=== PATIENT | female | born 1970 | race Two or more races ===

== ENCOUNTER 2019-02-04 18:06 | Emergency (ER) | payer OTHER ==
[~2019-02-04] VITALS: Ht 162.6 cm; Wt 113.4 kg
[2019-02-04 19:38] LABS: Potassium 4.5 mmol/L (3.5-5.1)
[2019-02-04 19:40] LABS: INR 1.2 (0.9-1.15); Partial Thromboplastin Time 29.9 sec (23.78-33.04); Prothrombin Time 12.7 sec (9.27-12.13)
[2019-02-04 19:42] LABS: Albumin 2.5 g/dL (3.4-5.0); Calcium 8.5 mg/dL (8.5-10.1)
[2019-02-04 19:45] LABS: BUN/Creatinine Ratio 14.9
[2019-02-04] MEDS ORDERED: ALBUTEROL SULF 2.5 MG/0.5ML(0.5%) NEB SOLN NEB ONE (19:45)
[2019-02-04] MEDS ORDERED: IPRATROPIUM BROM 0.5 MG/2.5ML INH SOL NEB ONE (19:45)
[2019-02-04 19:48] LABS: Bilirubin, Total 0.2 mg/dL (0.2-1.0); Total Protein 7.1 g/dL (6.4-8.2)
[2019-02-04] MEDS ORDERED: ALBUTEROL SULF 2.5 MG/0.5ML(0.5%) NEB SOLN ONE (19:49)
[2019-02-04] MEDS ORDERED: IPRATROPIUM BROM 0.5 MG/2.5ML INH SOL ONE (19:49)
[2019-02-04 19:59] LABS: Hematocrit 32.8 % (36.0-46.0); Hemoglobin 10.6 g/dL (12.2-16.2); Mean Corpuscular Hgb Conc. 32.2 g/dL (32.0-36.0); Mean Corpuscular Volume 86.9 fL (80.0-100.0); Platelet Count (auto) 294 10^3/uL (140-450); Red Blood Cells 3.78 10^6/uL (4.0-5.20); Red Cell Distribution Width 15.5 % (11.8-14.3); White Blood Cell 15.1 10^3/uL (4.4-10.8)
[2019-02-04 20:06] LABS: Basophils % (manual) 0 (0.0-2.0); Blast Cells 0; Metamyelocytes % 0; Myelocytes % 0; Promyelocytes % 0; Reactive Lymphocytes 0
[2019-02-04 20:38] LABS: Band Neutrophils % (manual) 3; Eosinophils % (manual) 1 (0-7); Lymphocytes % (manual) 14 (10.0-50.0); Monocytes % (manual) 4 (0-12)
[2019-02-04] MEDS ORDERED: AZITHROMYCIN 500MG/ 250ML 250 ML IV ONE (21:15)
[2019-02-04] MEDS ORDERED: cefTRIAXone 1GM/50ML D5W 50 ML IV ONE (21:15)
[2019-02-05] MEDS ORDERED: InsuLIN REG 1unit/0.01ml Soln (100units/ml) IV ONE ×2 (04:00→07:00)
[2019-02-05 06:43] VITALS: BP 103/58
--- NOTE | 2019-02-05 06:45 | NUR ---
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 PLACED PT. ON 15LPM NRB , SP02 95%. NO RESP. DISTRESS NOTED. TRANSPORT TAKING OVER PT. CARE AT THIS TIME.
== END 2019-02-05 07:15 | disposition short-term general hospital (02) ==
LOC: ER 18:08
DX: J18.9 Pneumonia, unspecified organism (principal); T82.868A Thrombosis due to vascular prosthetic devices, implants and grafts, initial encounter; E87.70 Fluid overload, unspecified; I13.2 Hypertensive heart and chronic kidney disease with heart failure and with stage 5 chronic kidney disease, or end stage renal disease; E11.22 Type 2 diabetes mellitus with diabetic chronic kidney disease; N18.6 End stage renal disease; I50.9 Heart failure, unspecified; Z85.850 Personal history of malignant neoplasm of thyroid
CPT/HCPCS: 36415; 36600; 71045; 80053; 82805; 82962; 83605; 84702; 85007; 85027; 85610; 85730; 87040; 94640; 94660; 94761; 96365; 96366; 96367; 96375; 96376; 99285; J0456; J0696; J1815; J7611; J7644

== ENCOUNTER 2021-04-01 16:14 | Inpatient (IN) | payer MEDICARE, MEDICAID ==
[~2021-04-01] VITALS: Ht 157.5 cm; Wt 93.3 kg
[2021-04-01 16:57] LABS: Basophils # (auto) 0.1 10 ^3/uL (0-0.2); Eosinophils # (auto) 0.4 10 ^3/uL (0-0.8); Eosinophils % (auto) 4.8 % (0.0-7.0); Hematocrit 28.1 % (36.0-46.0); Hemoglobin 9.6 g/dL (12.2-16.2); Lymphocytes # (auto) 1.3 10 ^3/uL (0.4-5.4); Lymphocytes % (auto) 15.6 % (10.0-50.0); Mean Corpuscular Hemoglobin 31.2 pg (28.0-32.0); Mean Corpuscular Volume 91.8 fL (80.0-100.0); Monocytes # (auto) 0.4 10 ^3/uL (0-1.3); Monocytes % (auto) 4.7 % (0.0-12.0); Neutrophils # (auto) 6.2 10 ^3/uL (1.6-8.6); Neutrophils % (auto) 73.9 % (37.0-80.0); Nucleated Red Blood Cells % 0.1 %; Platelet Count (auto) 283 10^3/uL (140-450); Red Blood Cells 3.07 10^6/uL (4.0-5.20); Red Cell Distribution Width 17.3 % (11.8-14.3); White Blood Cell 8.4 10^3/uL (4.4-10.8)
[2021-04-01 17:12] LABS: INR 1.62 (0.9-1.15); Partial Thromboplastin Time 28.4 sec (23.0-31.2)
[2021-04-01] MEDS ORDERED: PIPERACILLIN-TAZOB 3.375GM 100 ML IV ONE (17:15)
[2021-04-01 17:19] LABS: Albumin 3.1 g/dL (3.4-5.0); Calcium 8.2 mg/dL (8.5-10.1); Potassium 5.1 mmol/L (3.5-5.1)
[2021-04-01 17:26] LABS: BUN/Creatinine Ratio 8.7; Bilirubin, Total 0.8 mg/dL (0.2-1.0)
[2021-04-01] MEDS ORDERED: FUROSEMIDE 40 MG/4 ML VIAL IV ONE (17:45)
[2021-04-01] MEDS ORDERED: InsuLIN REG 1unit/0.01ml Soln (100units/ml) IV ONE (17:45)
[2021-04-01] MEDS ORDERED: HEPARIN SODIUM (PORCINE) 5000 UNITS/ML 1ML VIAL IV ONE (18:00)
[2021-04-01] MEDS ORDERED: MORPHINE SULF INJ 2 MG/ML SYRINGE 1ML IV PRN (19:15)
[2021-04-01] MEDS ORDERED: ACETAMINOPHEN 325 MG TAB PO PRN (19:15)
[2021-04-01] MEDS ORDERED: NITROGLYCERIN 0.4 MG SL TAB SL PRN (19:15)
[2021-04-01 20:10] LABS: Urine Bacteria NONE SEEN /hpf (None Seen); Urine Blood TRACE /uL (Negative); Urine Specific Gravity 1.013 (1.001-1.035); Urine WBC <1 /hpf (0 - 5)
[2021-04-01] MEDS: PHYTONADIONE (VIT K)10 MG/ML 1ML VIAL SUBCUT ONE (20:24)
[2021-04-01] MEDS ORDERED: PIPERACILLIN-TAZOB 0.75 GM in D5W 5% 50 ML IV SCH (21:15)
[2021-04-01] MEDS ORDERED: WARFARIN SODIUM 5 MG TAB PO ONE (21:45)
[2021-04-01] MEDS ORDERED: PIPERACILLIN-TAZOB 3.375GM 100 ML IV SCH (22:00)
[2021-04-01] MEDS: PIPERACILLIN-TAZOB 2.25GM 50 ML IV SCH (22:15)
[2021-04-01] MEDS: ASCORBIC ACID 500 MG TAB PO SCH (22:16)
[2021-04-01] MEDS: FAMOTIDINE 20 MG TAB PO SCH (22:16)
[2021-04-01] MEDS: MORPHINE SULF INJ 2 MG/ML SYRINGE 1ML IV PRN (22:40)
[2021-04-02 02:37] VITALS: BP 158/63
[2021-04-02 05:00] VITALS: BP 141/57
[2021-04-02] MEDS ORDERED: SODIUM CHL 0.9% 1000 ML BAG XX ONE (07:30)
[2021-04-02 08:05] LABS: Basophils # (auto) 0.1 10 ^3/uL (0-0.2); Basophils % (auto) 0.7 % (0.0-2.0); Eosinophils # (auto) 0.4 10 ^3/uL (0-0.8); Eosinophils % (auto) 4.7 % (0.0-7.0); Hematocrit 27.5 % (36.0-46.0); Hemoglobin 9.2 g/dL (12.2-16.2); Lymphocytes # (auto) 1.2 10 ^3/uL (0.4-5.4); Lymphocytes % (auto) 14.5 % (10.0-50.0); Mean Corpuscular Hemoglobin 30.7 pg (28.0-32.0); Mean Corpuscular Hgb Conc. 33.6 g/dL (32.0-36.0); Mean Corpuscular Volume 91.2 fL (80.0-100.0); Monocytes # (auto) 0.4 10 ^3/uL (0-1.3); Monocytes % (auto) 5.5 % (0.0-12.0); Neutrophils % (auto) 74.6 % (37.0-80.0); Platelet Count (auto) 261 10^3/uL (140-450); Red Blood Cells 3.01 10^6/uL (4.0-5.20); Red Cell Distribution Width 17.1 % (11.8-14.3)
[2021-04-02 08:15] LABS: Albumin 2.7 g/dL (3.4-5.0); BUN/Creatinine Ratio 9.5
[2021-04-02] MEDS ORDERED: ANGIOMAX 250 MG VIAL IV ONE (08:15)
[2021-04-02] MEDS ORDERED: fentaNYL CITRATE 100 MCG/2 ML VL ONE (08:15)
[2021-04-02] MEDS ORDERED: SODIUM CHL 0.9% 0 ML ONE (08:16)
[2021-04-02] MEDS ORDERED: MIDAZOLAM HCL 1MG/1ML-2 ML VIAL ONE (08:16)
[2021-04-02 08:19] LABS: Bilirubin, Total 0.3 mg/dL (0.2-1.0); Total Protein 6.5 g/dL (6.4-8.2)
[2021-04-02] MEDS ORDERED: LIDOCAINE 2%HCL (LOCAL ANESTH.) INJ 20ML MDV ONE (08:22)
[2021-04-02] MEDS ORDERED: IODIXANOL 320MG/ML 100ML BTL IV ONE (08:22)
[2021-04-02 08:26] LABS: Potassium 5.6 mmol/L (3.5-5.1)
[2021-04-02 08:30] LABS: INR 1.75 (0.9-1.15)
[2021-04-02 08:37] VITALS: BP 119/67
[2021-04-02] MEDS ORDERED: PHYTONADIONE (VIT K)10 MG/ML 1ML VIAL SUBCUT ONE (09:00)
[2021-04-02] MEDS ORDERED: phytonadione 1 ML ONE (09:04)
[2021-04-02] MEDS: ASCORBIC ACID 500 MG TAB PO SCH ×2 (10:00→21:20)
[2021-04-02] MEDS: ZINC SULFATE 220mg CAP or TAB PO SCH (10:00)
[2021-04-02] MEDS: PIPERACILLIN-TAZOB 2.25GM 50 ML IV SCH ×2 (10:00→21:21)
[2021-04-02] MEDS: MULTIPLE VITAMIN TAB PO SCH (10:00)
[2021-04-02] MEDS: HYDROcodone-ACET 5/325MG TAB PO PRN ×2 (10:45→18:35)
[2021-04-02 12:31] LABS: INR 1.84 (0.9-1.15)
[2021-04-02 13:00] VITALS: BP 102/37
[2021-04-02] MEDS: MORPHINE SULF INJ 2 MG/ML SYRINGE 1ML IV PRN (14:28)
[2021-04-02] MEDS ORDERED: VANCOMYCIN PER PHARMACY 0 MG IV SCH (16:30)
[2021-04-02 17:00] VITALS: BP 138/64
[2021-04-02] MEDS ORDERED: DEXTROSE (50%) 50ML SYRG IV PRN (18:30)
[2021-04-02] MEDS ORDERED: VANCOMYCIN 1GM/250ML 250 ML IV ONE (20:00)
[2021-04-02] MEDS ORDERED: EPOETIN ALFA-EPBX 4,000 UNIT/ML VIAL SC ONE (21:00)
[2021-04-02] MEDS: InsuLIN REG 1unit/0.01ml Soln (100units/ml) SC SCH (21:28)
[2021-04-02] MEDS: ACCU-CHEK COMFORT CURVE STRIP VI SCH (21:29)
[2021-04-02 22:00] VITALS: BP 106/35
[2021-04-03] MEDS ORDERED: SEVE800T8 PO (02:45)
[2021-04-03] MEDS ORDERED: METO2.5T PO (02:45)
[2021-04-03] MEDS ORDERED: INSREG3 SC (02:45)
[2021-04-03] MEDS ORDERED: HYDR-4798 PO (02:45)
[2021-04-03] MEDS ORDERED: WARF6TAB21 PO (02:45)
[2021-04-03] MEDS ORDERED: ONDA-155 PO (02:45)
[2021-04-03] MEDS ORDERED: FURO1TAB32 PO (02:45)
[2021-04-03] MEDS ORDERED: GABA300C10 PO (02:45)
[2021-04-03] MEDS ORDERED: AMIT10TA6 PO (02:45)
[2021-04-03] MEDS ORDERED: CARV3.1240 PO (02:45)
[2021-04-03] MEDS ORDERED: ALBU108A5 IN (02:45)
[2021-04-03] MEDS: MORPHINE SULF INJ 2 MG/ML SYRINGE 1ML IV PRN ×2 (04:40→20:40)
[2021-04-03 05:00] VITALS: BP 137/41
[2021-04-03] MEDS: InsuLIN REG 1unit/0.01ml Soln (100units/ml) SC SCH ×4 (06:14→22:43)
[2021-04-03] MEDS: PIPERACILLIN-TAZOB 2.25GM 50 ML IV SCH ×3 (06:14→22:37)
[2021-04-03] MEDS: ACCU-CHEK COMFORT CURVE STRIP VI SCH ×4 (06:15→22:38)
[2021-04-03 08:14] LABS: Basophils # (auto) 0 10 ^3/uL (0-0.2); Basophils % (auto) 0.2 % (0.0-2.0); Eosinophils # (auto) 0.4 10 ^3/uL (0-0.8); Eosinophils % (auto) 5.6 % (0.0-7.0); Hematocrit 24.9 % (36.0-46.0); Hemoglobin 8.6 g/dL (12.2-16.2); Lymphocytes # (auto) 1.2 10 ^3/uL (0.4-5.4); Lymphocytes % (auto) 15.9 % (10.0-50.0); Mean Corpuscular Hemoglobin 31.3 pg (28.0-32.0); Mean Corpuscular Hgb Conc. 34.5 g/dL (32.0-36.0); Mean Corpuscular Volume 90.8 fL (80.0-100.0); Monocytes # (auto) 0.5 10 ^3/uL (0-1.3); Neutrophils # (auto) 5.3 10 ^3/uL (1.6-8.6); Neutrophils % (auto) 71.3 % (37.0-80.0); Nucleated Red Blood Cells % 0.1 %; Platelet Count (auto) 259 10^3/uL (140-450); Red Blood Cells 2.75 10^6/uL (4.0-5.20); Red Cell Distribution Width 17.1 % (11.8-14.3); White Blood Cell 7.4 10^3/uL (4.4-10.8)
[2021-04-03 08:29] LABS: INR 1.53 (0.9-1.15)
[2021-04-03 08:33] VITALS: BP 116/54
[2021-04-03 08:47] LABS: BUN/Creatinine Ratio 7.8; Calcium 8.2 mg/dL (8.5-10.1); Magnesium 2.6 mg/dL (1.6-2.6); Potassium 5.3 mmol/L (3.5-5.1)
[2021-04-03] MEDS: ASCORBIC ACID 500 MG TAB PO SCH ×2 (10:00→22:38)
[2021-04-03] MEDS: MULTIPLE VITAMIN TAB PO SCH (10:00)
[2021-04-03] MEDS: ZINC SULFATE 220mg CAP or TAB PO SCH (10:00)
[2021-04-03] MEDS ORDERED: SODIUM ZIRCONIUM CYCL 10 GM PAK PO ONE (10:15)
[2021-04-03] MEDS ORDERED: PHYTONADIONE (VIT K)10 MG/ML 1ML VIAL IV ONE (10:30)
[2021-04-03] MEDS ORDERED: LIDOCAINE 2%HCL (LOCAL ANESTH.) INJ 20ML MDV ONE (10:34)
[2021-04-03] MEDS ORDERED: IODIXANOL 320MG/ML 100ML BTL IV ONE (10:34)
[2021-04-03] MEDS ORDERED: phytonadione 5 MG in SODIUM CHL 0.9% 50 ML IV ONE (10:45)
[2021-04-03] MEDS ORDERED: SODIUM CHL 0.9% 0 ML ONE (12:03)
[2021-04-03] MEDS ORDERED: ANGIOMAX 250 MG VIAL IV ONE (12:03)
[2021-04-03] MEDS ORDERED: MIDAZOLAM HCL 1MG/1ML-2 ML VIAL ONE ×2 (12:03→13:38)
[2021-04-03] MEDS ORDERED: fentaNYL CITRATE 100 MCG/2 ML VL ONE ×2 (12:03→13:38)
[2021-04-03 12:35] VITALS: BP 123/51
[2021-04-03] MEDS ORDERED: diphenhdrAMINE HCL 50 MG/1 ML VL ONE (12:42)
[2021-04-03] MEDS ORDERED: HEPARIN 1,000 UNITS/ml 1ML VIAL ONE (12:46)
[2021-04-03] MEDS ORDERED: HEPARIN SODIUM (PORCINE) 5000 UNITS/ML 1ML VIAL ONE ×2 (12:46→13:08)
[2021-04-03] MEDS ORDERED: VERAPAMIL 2.5MG/ML INJ 2ML VIAL IV ONE (13:17)
[2021-04-03] MEDS ORDERED: NITROGLYCERIN 5MG/ML 10ML VIAL IV ONE (13:17)
[2021-04-03] MEDS ORDERED: PROPOFOL 10 MG/ML 20 ML IV ONE (13:38)
[2021-04-03] MEDS ORDERED: ONDANSETRON HCL 4 MG/2 ML VIAL ONE (13:38)
[2021-04-03] MEDS ORDERED: SODIUM CHLORIDE LOCK 10 ML ONE (13:38)
[2021-04-03] MEDS ORDERED: SODIUM CHL 0.9% 100 ML ONE (13:44)
[2021-04-03] MEDS ORDERED: ceFAZolin 1GM/50ML 100 ML IV ONE (14:20)
[2021-04-03] MEDS ORDERED: ceFAZolin 1GM VL ONE (15:03)
[2021-04-03] MEDS ORDERED: ONDANSETRON HCL 4 MG/2 ML VIAL IV PRN (17:30)
[2021-04-03] MEDS ORDERED: fentaNYL CITRATE 100 MCG/2 ML VL IV PRN (17:30)
[2021-04-03] MEDS ORDERED: ePHEDrine SULFATE 50 MG/ML AMP IV PRN (17:30)
[2021-04-03] MEDS ORDERED: LABETALOL HCL 5 MG/ML 4ML SYRINGE IV PRN (17:30)
[2021-04-03] MEDS ORDERED: MIDAZOLAM HCL 1MG/1ML-2 ML VIAL IV PRN (17:30)
[2021-04-03 22:00] VITALS: BP 119/40
[2021-04-03] MEDS: FAMOTIDINE 20 MG TAB PO SCH (22:38)
[2021-04-04] MEDS: HYDROcodone-ACET 5/325MG TAB PO PRN ×2 (04:01→09:44)
[2021-04-04 05:00] VITALS: BP 131/50
[2021-04-04] MEDS: PIPERACILLIN-TAZOB 2.25GM 50 ML IV SCH ×3 (05:42→21:52)
[2021-04-04] MEDS: ACCU-CHEK COMFORT CURVE STRIP VI SCH ×4 (06:22→22:07)
[2021-04-04] MEDS: InsuLIN REG 1unit/0.01ml Soln (100units/ml) SC SCH ×4 (06:22→22:00)
[2021-04-04 08:20] LABS: Calcium 8.5 mg/dL (8.5-10.1); Potassium 5.5 mmol/L (3.5-5.1)
[2021-04-04 08:22] LABS: BUN/Creatinine Ratio 8.1
[2021-04-04 08:41] VITALS: BP 106/38
[2021-04-04] MEDS: MULTIPLE VITAMIN TAB PO SCH (09:44)
[2021-04-04] MEDS: ZINC SULFATE 220mg CAP or TAB PO SCH (09:44)
[2021-04-04] MEDS: ASCORBIC ACID 500 MG TAB PO SCH ×2 (09:44→22:07)
[2021-04-04 10:37] LABS: INR 1.14 (0.9-1.15)
[2021-04-04 11:30] LABS: Hepatitis A Ab IgM Negative
[2021-04-04 11:31] LABS: Hepatitis B Core IgM Negative; Hepatitis C Antibody Negative (Negative)
[2021-04-04 11:32] LABS: Hepatitis B Surface Antigen Negative (Negative)
[2021-04-04 12:16] LABS: Basophils # (auto) 0.1 10 ^3/uL (0-0.2); Basophils % (auto) 1.2 % (0.0-2.0); Eosinophils # (auto) 0.4 10 ^3/uL (0-0.8); Eosinophils % (auto) 5.1 % (0.0-7.0); Hematocrit 25.4 % (36.0-46.0); Hemoglobin 8.6 g/dL (12.2-16.2); Lymphocytes # (auto) 1.1 10 ^3/uL (0.4-5.4); Lymphocytes % (auto) 14.8 % (10.0-50.0); Mean Corpuscular Hemoglobin 31.1 pg (28.0-32.0); Mean Corpuscular Hgb Conc. 33.9 g/dL (32.0-36.0); Mean Corpuscular Volume 91.8 fL (80.0-100.0); Monocytes # (auto) 0.5 10 ^3/uL (0-1.3); Monocytes % (auto) 6.9 % (0.0-12.0); Neutrophils # (auto) 5.2 10 ^3/uL (1.6-8.6); Nucleated Red Blood Cells % 0.2 %; Platelet Count (auto) 265 10^3/uL (140-450); Red Blood Cells 2.76 10^6/uL (4.0-5.20); Red Cell Distribution Width 17.3 % (11.8-14.3); White Blood Cell 7.2 10^3/uL (4.4-10.8)
[2021-04-04 13:13] VITALS: BP 141/36
[2021-04-04] MEDS: HYDROcodone-ACET 10/325MG TAB PO PRN ×2 (14:15→19:56)
[2021-04-04 16:28] VITALS: BP 94/42
[2021-04-04] MEDS ORDERED: VANCOMYCIN 1GM/250ML 250 ML IV ONE (18:00)
[2021-04-04] MEDS: FUROSEMIDE 20 MG TAB PO SCH (18:00)
[2021-04-04] MEDS: SEVELAMER 800 MG TAB PO SCH (18:04)
[2021-04-04 22:00] VITALS: BP 107/46
[2021-04-04] MEDS: CARVEDILOL 3.125 MG TAB PO SCH (22:07)
[2021-04-04] MEDS: AMITRIPTYLINE HCL 10 MG TAB PO SCH (22:07)
[2021-04-04] MEDS: GABAPENTIN 300 MG CAP PO SCH (22:07)
[2021-04-05 05:00] VITALS: BP 97/51
[2021-04-05] MEDS: PIPERACILLIN-TAZOB 2.25GM 50 ML IV SCH ×3 (06:00→22:59)
[2021-04-05] MEDS: FUROSEMIDE 20 MG TAB PO SCH ×2 (06:00→17:47)
[2021-04-05] MEDS: InsuLIN REG 1unit/0.01ml Soln (100units/ml) SC SCH ×4 (06:40→22:00)
[2021-04-05] MEDS: ACCU-CHEK COMFORT CURVE STRIP VI SCH ×4 (06:40→23:02)
[2021-04-05] MEDS: HYDROcodone-ACET 10/325MG TAB PO PRN ×4 (06:48→23:34)
[2021-04-05 06:49] VITALS: BP 113/54
[2021-04-05] MEDS ORDERED: SODIUM CHL 0.9% 1000 ML BAG XX ONE (07:00)
[2021-04-05 07:49] LABS: Basophils # (auto) 0.1 10 ^3/uL (0-0.2); Eosinophils # (auto) 0.4 10 ^3/uL (0-0.8); Eosinophils % (auto) 5.4 % (0.0-7.0); Hematocrit 27.3 % (36.0-46.0); Hemoglobin 9.1 g/dL (12.2-16.2); Lymphocytes # (auto) 1.2 10 ^3/uL (0.4-5.4); Lymphocytes % (auto) 14.8 % (10.0-50.0); Mean Corpuscular Hemoglobin 30.5 pg (28.0-32.0); Mean Corpuscular Hgb Conc. 33.3 g/dL (32.0-36.0); Mean Corpuscular Volume 91.5 fL (80.0-100.0); Monocytes # (auto) 0.5 10 ^3/uL (0-1.3); Monocytes % (auto) 6.3 % (0.0-12.0); Neutrophils # (auto) 5.7 10 ^3/uL (1.6-8.6); Neutrophils % (auto) 72.5 % (37.0-80.0); Nucleated Red Blood Cells % 0.1 %; Platelet Count (auto) 292 10^3/uL (140-450); Red Blood Cells 2.98 10^6/uL (4.0-5.20); Red Cell Distribution Width 17.1 % (11.8-14.3); White Blood Cell 7.8 10^3/uL (4.4-10.8)
[2021-04-05] MEDS: SEVELAMER 800 MG TAB PO SCH ×3 (08:00→17:51)
[2021-04-05 08:12] LABS: BUN/Creatinine Ratio 7.8; Calcium 8.5 mg/dL (8.5-10.1); Potassium 5.5 mmol/L (3.5-5.1)
[2021-04-05] MEDS: MULTIPLE VITAMIN TAB PO SCH (09:18)
[2021-04-05] MEDS: ZINC SULFATE 220mg CAP or TAB PO SCH (09:18)
[2021-04-05] MEDS: CARVEDILOL 3.125 MG TAB PO SCH ×2 (09:18→23:00)
[2021-04-05] MEDS: GABAPENTIN 300 MG CAP PO SCH (09:19)
[2021-04-05] MEDS: metOLazone 5 MG TAB PO SCH (09:19)
[2021-04-05] MEDS: ASCORBIC ACID 500 MG TAB PO SCH ×2 (09:19→23:02)
[2021-04-05 09:23] VITALS: BP 100/66
[2021-04-05 12:55] VITALS: BP 115/44
[2021-04-05] MEDS ORDERED: LIDOCAINE 1% (LOCAL ANESTH.) PF 5ml SDV ID ONE (14:15)
[2021-04-05 16:44] VITALS: BP 103/43
[2021-04-05] MEDS ORDERED: WARFARIN SODIUM 5 MG TAB PO ONE (17:00)
[2021-04-05] MEDS ORDERED: VANCOMYCIN 1GM/250ML 250 ML IV ONE (18:00)
[2021-04-05] MEDS ORDERED: EPOETIN ALFA-EPBX 10,000 UNIT/1ML VIAL SC ONE (21:00)
[2021-04-05 22:00] VITALS: BP 126/32
[2021-04-05] MEDS ORDERED: GABAPENTIN 300 MG CAP PO ONE (22:00)
[2021-04-05] MEDS: SODIUM CHLOR 0.9% PF (SALINE LOCK) 10ML VIAL/SYR IV SCH (22:59)
[2021-04-05] MEDS: AMITRIPTYLINE HCL 10 MG TAB PO SCH (23:00)
[2021-04-05] MEDS: ATORVASTATIN 20 MG TAB PO SCH (23:01)
[2021-04-05] MEDS: FAMOTIDINE 20 MG TAB PO SCH (23:02)
[2021-04-06] VITALS (7 sets, daily range): BP systolic 72–109; BP diastolic 34–77
[2021-04-06] MEDS: FUROSEMIDE 20 MG TAB PO SCH ×2 (05:44→18:00)
[2021-04-06] MEDS: PIPERACILLIN-TAZOB 2.25GM 50 ML IV SCH ×3 (05:53→21:59)
[2021-04-06 05:56] LABS: Potassium 4.5 mmol/L (3.5-5.1)
[2021-04-06 06:00] LABS: BUN/Creatinine Ratio 6.5
[2021-04-06 06:01] LABS: Basophils # (auto) 0.1 10 ^3/uL (0-0.2); Eosinophils # (auto) 0.3 10 ^3/uL (0-0.8); Lymphocytes # (auto) 1.1 10 ^3/uL (0.4-5.4); Lymphocytes % (auto) 17.5 % (10.0-50.0); Mean Corpuscular Hgb Conc. 33.9 g/dL (32.0-36.0); Monocytes # (auto) 0.6 10 ^3/uL (0-1.3); Neutrophils # (auto) 4.2 10 ^3/uL (1.6-8.6); Nucleated Red Blood Cells % 0.1 %; Platelet Count (auto) 229 10^3/uL (140-450); White Blood Cell 6.2 10^3/uL (4.4-10.8)
[2021-04-06 06:03] LABS: Basophils % (auto) 0.8 % (0.0-2.0); Eosinophils % (auto) 4.7 % (0.0-7.0); Hematocrit 22.8 % (36.0-46.0); Hemoglobin 7.7 g/dL (12.2-16.2); Mean Corpuscular Hemoglobin 30.9 pg (28.0-32.0); Mean Corpuscular Volume 91.2 fL (80.0-100.0); Monocytes % (auto) 9.2 % (0.0-12.0); Neutrophils % (auto) 67.8 % (37.0-80.0); Red Cell Distribution Width 17.4 % (11.8-14.3)
[2021-04-06 06:05] LABS: INR 1.05 (0.9-1.15); Partial Thromboplastin Time 25.4 sec (23.0-31.2)
[2021-04-06] MEDS: InsuLIN REG 1unit/0.01ml Soln (100units/ml) SC SCH ×4 (06:13→22:00)
[2021-04-06] MEDS: ACCU-CHEK COMFORT CURVE STRIP VI SCH ×4 (06:13→22:00)
[2021-04-06] MEDS: HYDROcodone-ACET 10/325MG TAB PO PRN ×3 (07:57→21:15)
[2021-04-06] MEDS: SEVELAMER 800 MG TAB PO SCH ×3 (07:59→18:02)
[2021-04-06] MEDS: metOLazone 5 MG TAB PO SCH (10:00)
[2021-04-06] MEDS ORDERED: ASPirin 81 mg TAB PO SCH (10:00)
[2021-04-06] MEDS: CARVEDILOL 3.125 MG TAB PO SCH ×2 (10:00→22:06)
[2021-04-06] MEDS: SODIUM CHLOR 0.9% PF (SALINE LOCK) 10ML VIAL/SYR IV SCH ×2 (10:28→22:05)
[2021-04-06] MEDS: GABAPENTIN 300 MG CAP PO SCH (10:32)
[2021-04-06] MEDS: MULTIPLE VITAMIN TAB PO SCH (10:33)
[2021-04-06] MEDS: ZINC SULFATE 220mg CAP or TAB PO SCH (10:33)
[2021-04-06] MEDS: ASCORBIC ACID 500 MG TAB PO SCH ×2 (10:33→22:06)
[2021-04-06] MEDS ORDERED: WARFARIN SODIUM 5 MG TAB PO ONE (17:00)
[2021-04-06] MEDS: ATORVASTATIN 20 MG TAB PO SCH (22:06)
[2021-04-06] MEDS: AMITRIPTYLINE HCL 10 MG TAB PO SCH (22:06)
[2021-04-07 05:00] VITALS: BP 102/28
[2021-04-07 05:52] LABS: Basophils # (auto) 0.1 10 ^3/uL (0-0.2); Eosinophils # (auto) 0.4 10 ^3/uL (0-0.8); Lymphocytes # (auto) 1.1 10 ^3/uL (0.4-5.4); Monocytes # (auto) 0.6 10 ^3/uL (0-1.3); Red Cell Distribution Width 17.3 % (11.8-14.3)
[2021-04-07 05:54] LABS: Basophils % (auto) 0.7 % (0.0-2.0); Eosinophils % (auto) 5.1 % (0.0-7.0); Hematocrit 22.5 % (36.0-46.0); Hemoglobin 7.9 g/dL (12.2-16.2); Lymphocytes % (auto) 13.8 % (10.0-50.0); Mean Corpuscular Hemoglobin 31.9 pg (28.0-32.0); Mean Corpuscular Hgb Conc. 34.9 g/dL (32.0-36.0); Mean Corpuscular Volume 91.5 fL (80.0-100.0); Neutrophils # (auto) 5.8 10 ^3/uL (1.6-8.6); Neutrophils % (auto) 72.4 % (37.0-80.0); Platelet Count (auto) 243 10^3/uL (140-450); Red Blood Cells 2.46 10^6/uL (4.0-5.20)
[2021-04-07 06:05] LABS: INR 1.08 (0.9-1.15)
[2021-04-07] MEDS: PIPERACILLIN-TAZOB 2.25GM 50 ML IV SCH (06:35)
[2021-04-07] MEDS: FUROSEMIDE 20 MG TAB PO SCH (06:36)
[2021-04-07] MEDS: ACCU-CHEK COMFORT CURVE STRIP VI SCH (06:36)
[2021-04-07] MEDS: InsuLIN REG 1unit/0.01ml Soln (100units/ml) SC SCH (06:36)
[2021-04-07 06:52] VITALS: BP 102/28
== END 2021-04-07 08:00 | disposition home health service (06) | DRG 270 ==
LOC: ER 16:14 → TELE 19:13 → TELE-WESTW 04-02 01:42
PROVIDERS: ADMIT Nurse Practitioner; ATTEND Nurse Practitioner
PROC: 04CQ3ZZ Extirpation of Matter from Left Anterior Tibial Artery, Percutaneous Approach (ICD-10-PCS; 2021-04-03)
PROC: 0Y6Y0Z0 Detachment at Left 5th Toe, Complete, Open Approach (ICD-10-PCS; 2021-04-03)
PROC: 047Q3ZZ Dilation of Left Anterior Tibial Artery, Percutaneous Approach (ICD-10-PCS; 2021-04-03)
PROC: 0SBN0ZX Excision of Left Metatarsal-Phalangeal Joint, Open Approach, Diagnostic (ICD-10-PCS; 2021-04-03)
PROC: B41G1ZZ Fluoroscopy of Left Lower Extremity Arteries using Low Osmolar Contrast (ICD-10-PCS; 2021-04-03)
PROC: B41F1ZZ Fluoroscopy of Right Lower Extremity Arteries using Low Osmolar Contrast (ICD-10-PCS; 2021-04-03)
PROC: 0Y6W0Z0 Detachment at Left 4th Toe, Complete, Open Approach (ICD-10-PCS; principal; 2021-04-03 16:11)
PROC: 06HY33Z Insertion of Infusion Device into Lower Vein, Percutaneous Approach (ICD-10-PCS; 2021-04-05)
DX: E11.52 Type 2 diabetes mellitus with diabetic peripheral angiopathy with gangrene (principal); A48.0 Gas gangrene; I50.43 Acute on chronic combined systolic (congestive) and diastolic (congestive) heart failure; N18.6 End stage renal disease; M86.10 Other acute osteomyelitis, unspecified site; I13.2 Hypertensive heart and chronic kidney disease with heart failure and with stage 5 chronic kidney disease, or end stage renal disease; J98.11 Atelectasis; D68.9 Coagulation defect, unspecified; E11.69 Type 2 diabetes mellitus with other specified complication; E66.9 Obesity, unspecified; Z20.822 Contact with and (suspected) exposure to COVID-19; E11.65 Type 2 diabetes mellitus with hyperglycemia; E11.42 Type 2 diabetes mellitus with diabetic polyneuropathy; E11.22 Type 2 diabetes mellitus with diabetic chronic kidney disease; E11.621 Type 2 diabetes mellitus with foot ulcer; D63.8 Anemia in other chronic diseases classified elsewhere; I73.9 Peripheral vascular disease, unspecified; E78.5 Hyperlipidemia, unspecified; L97.509 Non-pressure chronic ulcer of other part of unspecified foot with unspecified severity; J45.909 Unspecified asthma, uncomplicated; L08.9 Local infection of the skin and subcutaneous tissue, unspecified; R09.89 Other specified symptoms and signs involving the circulatory and respiratory systems; I25.2 Old myocardial infarction; Z79.01 Long term (current) use of anticoagulants; Z80.41 Family history of malignant neoplasm of ovary; Z80.6 Family history of leukemia; Z83.3 Family history of diabetes mellitus; Z85.850 Personal history of malignant neoplasm of thyroid; Z87.891 Personal history of nicotine dependence; Z99.2 Dependence on renal dialysis; Z88.8 Allergy status to other drugs, medicaments and biological substances; Z98.891 History of uterine scar from previous surgery; Z86.711 Personal history of pulmonary embolism; Z79.899 Other long term (current) drug therapy; Z68.37 Body mass index [BMI] 37.0-37.9, adult
CPT/HCPCS: 36415; 36569; 71045; 73700; 80048; 80053; 80074; 80202; 81001; 82040; 82565; 82962; 83605; 83735; 83880; 84484; 84702; 85025; 85610; 85730; 86850; 86900; 86901; 87040; 87081; 87426; 93005; 93306; 93926; 96365; 96375; 99152; 99153; C1724; C1769; G0378; J0690; J1642; J1815; J2250; J2405; J2543; J2704; J3430; J3490; Q9967

== ENCOUNTER 2021-05-07 10:43 | Inpatient (IN) | payer MEDICARE, MEDICAID ==
[~2021-05-07] VITALS: Ht 157.5 cm; Wt 97.0 kg
[~2021-05-07 10:43] MED LIST: ALBU108A5 IN; AMIT10TA6 PO; CARV3.1240 PO; FURO1TAB32 PO; GABA300C10 PO; HYDR-4798 PO; INSREG3 SC; METO2.5T PO; ONDA-155 PO; SEVE800T8 PO; WARF6TAB21 PO
[2021-05-07] MEDS ORDERED: CLINDAMYCIN 600MG IV 50 ML IV ONE (11:00)
[2021-05-07] MEDS ORDERED: SODIUM CHLORIDE 0.9% 500 ML IV ONE (11:00)
[2021-05-07] MEDS ORDERED: CATHFLO ACTIVASE (ALTEPLASE) 2 MG VIAL IV ONE (12:00)
[2021-05-07] MEDS ORDERED: STERILE WATER 10 ML ONE (12:07)
[2021-05-07 12:08] LABS: Eosinophils # (auto) 0.4 10 ^3/uL (0-0.8); Hemoglobin 7.5 g/dL (12.2-16.2); Monocytes # (auto) 0.6 10 ^3/uL (0-1.3)
[2021-05-07 12:10] LABS: Basophils # (auto) 0.1 10 ^3/uL (0-0.2); Basophils % (auto) 0.7 % (0.0-2.0); Eosinophils % (auto) 5.2 % (0.0-7.0); Hematocrit 22.9 % (36.0-46.0); Lymphocytes # (auto) 0.7 10 ^3/uL (0.4-5.4); Lymphocytes % (auto) 9.6 % (10.0-50.0); Mean Corpuscular Hemoglobin 29.3 pg (28.0-32.0); Mean Corpuscular Hgb Conc. 32.8 g/dL (32.0-36.0); Mean Corpuscular Volume 89.3 fL (80.0-100.0); Monocytes % (auto) 7.2 % (0.0-12.0); Neutrophils % (auto) 77.3 % (37.0-80.0); Red Blood Cells 2.56 10^6/uL (4.0-5.20); Red Cell Distribution Width 16.5 % (11.8-14.3); White Blood Cell 7.7 10^3/uL (4.4-10.8)
[2021-05-07 12:11] LABS: INR 1.48 (0.9-1.15); Partial Thromboplastin Time 32.2 sec (23.0-31.2)
[2021-05-07 12:27] LABS: Potassium 4.5 mmol/L (3.5-5.1)
[2021-05-07] MEDS ORDERED: NITROGLYCERIN 0.4 MG SL TAB SL PRN (12:30)
[2021-05-07] MEDS ORDERED: MORPHINE SULF INJ 2 MG/ML SYRINGE 1ML IV PRN (12:30)
[2021-05-07] MEDS ORDERED: DEXTROSE (50%) 50ML SYRG IV PRN (12:30)
[2021-05-07 12:33] LABS: Albumin 2.2 g/dL (3.4-5.0); BUN/Creatinine Ratio 8.5; Bilirubin, Total 0.3 mg/dL (0.2-1.0); Calcium 8.3 mg/dL (8.5-10.1); Total Protein 6.6 g/dL (6.4-8.2)
[2021-05-07] MEDS ORDERED: ONDANSETRON HCL 4 MG/2 ML VIAL ONE (13:18)
[2021-05-07] MEDS: MORPHINE SULF INJ 2 MG/ML SYRINGE 1ML IV PRN ×2 (13:27→23:13)
[2021-05-07] MEDS ORDERED: AMPICILLIN & SULBACTAM SODIUM 3 GM in SODIUM CHL 0.9% 100 ML IV SCH (14:00)
[2021-05-07] MEDS ORDERED: ZOLPIDEM TARTRATE 5 MG TAB PO PRN (14:00)
[2021-05-07] MEDS: HYDROcodone-ACET 10/325MG TAB PO PRN ×2 (15:27→21:30)
[2021-05-07 16:50] VITALS: BP 108/52
[2021-05-07] MEDS: InsuLIN REG 1unit/0.01ml Soln (100units/ml) SC SCH ×2 (17:00→23:30)
[2021-05-07] MEDS: ACCU-CHEK COMFORT CURVE STRIP VI SCH ×2 (17:39→22:42)
[2021-05-07] MEDS: FUROSEMIDE 40 MG TAB PO SCH (18:00)
[2021-05-07] MEDS: SEVELAMER 800 MG TAB PO SCH (18:24)
[2021-05-07 20:00] VITALS: BP 124/29
[2021-05-07] MEDS: ASCORBIC ACID 500 MG TAB PO SCH (21:30)
[2021-05-07] MEDS: LINEZOLID 600MG/300ML 300 ML IV SCH (21:30)
[2021-05-07] MEDS: GABAPENTIN 300 MG CAP PO SCH (21:31)
[2021-05-07] MEDS: CARVEDILOL 3.125 MG TAB PO SCH ×2 (21:33→22:00)
[2021-05-07 22:25] VITALS: BP 124/29
[2021-05-07] MEDS: PIPERACILLIN-TAZOB 2.25GM 50 ML IV SCH (22:41)
[2021-05-08 05:08] VITALS: BP 124/47
[2021-05-08] MEDS: PIPERACILLIN-TAZOB 2.25GM 50 ML IV SCH ×3 (05:13→22:16)
[2021-05-08 05:55] LABS: Albumin 2.2 g/dL (3.4-5.0); Calcium 7.9 mg/dL (8.5-10.1); Potassium 4.7 mmol/L (3.5-5.1)
[2021-05-08 05:57] LABS: Eosinophils # (auto) 0.5 10 ^3/uL (0-0.8); Hemoglobin 7.1 g/dL (12.2-16.2); Lymphocytes # (auto) 0.9 10 ^3/uL (0.4-5.4); Monocytes # (auto) 0.5 10 ^3/uL (0-1.3); Neutrophils # (auto) 4.6 10 ^3/uL (1.6-8.6)
[2021-05-08 06:00] LABS: BUN/Creatinine Ratio 9.4; Basophils # (auto) 0 10 ^3/uL (0-0.2); Basophils % (auto) 0.7 % (0.0-2.0); Bilirubin, Total 0.3 mg/dL (0.2-1.0); Eosinophils % (auto) 7.5 % (0.0-7.0); Hematocrit 21.6 % (36.0-46.0); Lymphocytes % (auto) 13.9 % (10.0-50.0); Mean Corpuscular Hemoglobin 29.5 pg (28.0-32.0); Mean Corpuscular Hgb Conc. 32.7 g/dL (32.0-36.0); Monocytes % (auto) 7.9 % (0.0-12.0); Red Blood Cells 2.39 10^6/uL (4.0-5.20); Red Cell Distribution Width 16.3 % (11.8-14.3); Total Protein 6.2 g/dL (6.4-8.2); White Blood Cell 6.6 10^3/uL (4.4-10.8)
[2021-05-08] MEDS: FUROSEMIDE 40 MG TAB PO SCH ×2 (06:00→17:33)
[2021-05-08] MEDS: InsuLIN REG 1unit/0.01ml Soln (100units/ml) SC SCH ×4 (06:32→22:00)
[2021-05-08] MEDS: ACCU-CHEK COMFORT CURVE STRIP VI SCH ×4 (06:33→22:16)
[2021-05-08] MEDS ORDERED: LIDOCAINE 1% HCL (LOCAL ANESTH.) INJ 20ML MDV ONE (07:39)
[2021-05-08] MEDS ORDERED: BUPIVACAINE 0.5% P/F INJ 10 ML VIAL ONE (07:40)
[2021-05-08] MEDS ORDERED: DOXAPRAM HCL 20 MG/ML 20ML VIAL INJ IV ONE (07:40)
[2021-05-08 08:00] VITALS: BP 108/41
[2021-05-08] MEDS ORDERED: ONDANSETRON HCL 4 MG/2 ML VIAL ONE (08:00)
[2021-05-08] MEDS ORDERED: MIDAZOLAM HCL 2MG/2ML 2ml VIAL (1mg/ml) ONE ×2 (08:00→09:08)
[2021-05-08] MEDS: SEVELAMER 800 MG TAB PO SCH ×3 (08:00→17:34)
[2021-05-08] MEDS: LINEZOLID 600MG/300ML 300 ML IV SCH ×2 (08:00→19:47)
[2021-05-08] MEDS ORDERED: fentaNYL CITRATE 100 MCG/2 ML VL ONE (08:00)
[2021-05-08] MEDS ORDERED: PROPOFOL 10 MG/ML 20 ML IV ONE (08:00)
[2021-05-08] MEDS ORDERED: SODIUM CHLORIDE LOCK 10 ML ONE (08:00)
[2021-05-08] MEDS ORDERED: ceFAZolin 1GM VL ONE (08:23)
[2021-05-08] MEDS ORDERED: HYDROmorphone HCL 2 MG/ML VL IV PRN (08:30)
[2021-05-08] MEDS ORDERED: ACCU-CHEK COMFORT CURVE STRIP VI ONE (08:30)
[2021-05-08] MEDS ORDERED: METOCLOPRAMIDE HCL 5MG/ml INJ 2ml VIAL IV PRN (08:30)
[2021-05-08 08:34] LABS: INR 1.4 (0.9-1.15)
[2021-05-08] MEDS ORDERED: ceFAZolin 1GM/50ML 100 ML IV ONE (09:05)
[2021-05-08] MEDS: ASCORBIC ACID 500 MG TAB PO SCH ×2 (10:00→21:31)
[2021-05-08] MEDS: GABAPENTIN 300 MG CAP PO SCH ×2 (10:00→21:31)
[2021-05-08] MEDS: metOLazone 5 MG TAB PO SCH (10:00)
[2021-05-08] MEDS: ZINC SULFATE 220mg CAP or TAB PO SCH (10:00)
[2021-05-08] MEDS: CARVEDILOL 3.125 MG TAB PO SCH ×2 (10:00→21:30)
[2021-05-08] MEDS: MULTIPLE VITAMIN TAB PO SCH (12:10)
[2021-05-08] MEDS ORDERED: SODIUM CHL 0.9% 1000 ML BAG XX ONE (12:30)
[2021-05-08] MEDS: MORPHINE SULF INJ 2 MG/ML SYRINGE 1ML IV PRN (12:55)
[2021-05-08 13:00] VITALS: BP 108/41
[2021-05-08] MEDS ORDERED: HYDROmorphone HCL 2 MG/ML VL IV ONE (13:45)
[2021-05-08] MEDS ORDERED: MORPHINE SULFATE 4 MG/ML SYR/VIAL IV PRN (14:00)
[2021-05-08] MEDS ORDERED: ASCO500T11 PO (15:15)
[2021-05-08] MEDS ORDERED: CHOL20007 PO (15:15)
[2021-05-08] MEDS: HYDROcodone-ACET 10/325MG TAB PO PRN ×2 (15:16→21:43)
[2021-05-08 16:37] VITALS: BP 100/45
[2021-05-08] MEDS: ACETAMINOPHEN 325 MG TAB PO PRN (17:34)
[2021-05-08] MEDS: HYDROmorphone HCL 2 MG/ML VL IV PRN (19:48)
[2021-05-08 20:00] VITALS: BP 97/54
[2021-05-08] MEDS ORDERED: EPOETIN ALFA-EPBX 4,000 UNIT/ML VIAL SC ONE (21:00)
[2021-05-08 22:11] VITALS: BP 97/54
[2021-05-09] MEDS: HYDROcodone-ACET 10/325MG TAB PO PRN ×4 (02:00→20:11)
[2021-05-09] MEDS: HYDROmorphone HCL 2 MG/ML VL IV PRN ×4 (03:38→22:49)
[2021-05-09 04:56] VITALS: BP 96/50
[2021-05-09] MEDS: FUROSEMIDE 40 MG TAB PO SCH ×2 (06:00→16:54)
[2021-05-09] MEDS: ACCU-CHEK COMFORT CURVE STRIP VI SCH ×4 (06:01→22:26)
[2021-05-09] MEDS: PIPERACILLIN-TAZOB 2.25GM 50 ML IV SCH ×3 (06:01→22:28)
[2021-05-09] MEDS: InsuLIN REG 1unit/0.01ml Soln (100units/ml) SC SCH ×4 (06:07→22:00)
[2021-05-09] MEDS: SEVELAMER 800 MG TAB PO SCH ×3 (07:55→16:53)
[2021-05-09] MEDS: LINEZOLID 600MG/300ML 300 ML IV SCH ×2 (08:00→20:01)
[2021-05-09 09:16] VITALS: BP 113/35
[2021-05-09] MEDS: CARVEDILOL 3.125 MG TAB PO SCH ×2 (10:00→22:00)
[2021-05-09] MEDS: metOLazone 5 MG TAB PO SCH (10:00)
[2021-05-09] MEDS: ZINC SULFATE 220mg CAP or TAB PO SCH (10:20)
[2021-05-09] MEDS: MULTIPLE VITAMIN TAB PO SCH (10:21)
[2021-05-09] MEDS: ASCORBIC ACID 500 MG TAB PO SCH ×2 (10:21→22:27)
[2021-05-09] MEDS: GABAPENTIN 300 MG CAP PO SCH ×2 (10:21→22:27)
[2021-05-09 13:00] VITALS: BP 123/39
[2021-05-09 17:14] VITALS: BP 116/65
[2021-05-09 22:00] VITALS: BP 84/45
[2021-05-09] MEDS: ACETAMINOPHEN 325 MG TAB PO PRN (22:15)
[2021-05-10] MEDS: PIPERACILLIN-TAZOB 2.25GM 50 ML IV SCH ×3 (00:47→14:12)
[2021-05-10 05:00] VITALS: BP 133/53
[2021-05-10 05:23] LABS: Basophils # (auto) 0.1 10 ^3/uL (0-0.2); Eosinophils # (auto) 0.4 10 ^3/uL (0-0.8); Lymphocytes # (auto) 1.1 10 ^3/uL (0.4-5.4); Monocytes # (auto) 0.7 10 ^3/uL (0-1.3)
[2021-05-10 05:27] LABS: Basophils % (auto) 1.1 % (0.0-2.0); Eosinophils % (auto) 6.3 % (0.0-7.0); Hematocrit 21.3 % (36.0-46.0); Hemoglobin 7.3 g/dL (12.2-16.2); Lymphocytes % (auto) 15.8 % (10.0-50.0); Mean Corpuscular Hemoglobin 30.7 pg (28.0-32.0); Mean Corpuscular Hgb Conc. 34.4 g/dL (32.0-36.0); Monocytes % (auto) 9.5 % (0.0-12.0); Neutrophils # (auto) 4.8 10 ^3/uL (1.6-8.6); Neutrophils % (auto) 67.3 % (37.0-80.0); Red Blood Cells 2.39 10^6/uL (4.0-5.20); Red Cell Distribution Width 16.1 % (11.8-14.3); White Blood Cell 7.1 10^3/uL (4.4-10.8)
[2021-05-10 05:44] LABS: Calcium 8.4 mg/dL (8.5-10.1); Potassium 4.8 mmol/L (3.5-5.1)
[2021-05-10 05:47] LABS: BUN/Creatinine Ratio 7.1
[2021-05-10] MEDS: FUROSEMIDE 40 MG TAB PO SCH ×2 (06:17→18:00)
[2021-05-10] MEDS: ACCU-CHEK COMFORT CURVE STRIP VI SCH ×4 (06:17→21:49)
[2021-05-10] MEDS: InsuLIN REG 1unit/0.01ml Soln (100units/ml) SC SCH ×4 (06:17→22:00)
[2021-05-10] MEDS: SEVELAMER 800 MG TAB PO SCH ×3 (08:00→18:00)
[2021-05-10] MEDS: LINEZOLID 600MG/300ML 300 ML IV SCH ×2 (08:00→21:47)
[2021-05-10 09:00] VITALS: BP 112/38
[2021-05-10] MEDS: HYDROmorphone HCL 2 MG/ML VL IV PRN (09:40)
[2021-05-10] MEDS: ZINC SULFATE 220mg CAP or TAB PO SCH (09:58)
[2021-05-10] MEDS: MULTIPLE VITAMIN TAB PO SCH (09:59)
[2021-05-10] MEDS: GABAPENTIN 300 MG CAP PO SCH ×2 (09:59→21:48)
[2021-05-10] MEDS: CARVEDILOL 3.125 MG TAB PO SCH ×2 (09:59→21:48)
[2021-05-10] MEDS: metOLazone 5 MG TAB PO SCH (10:00)
[2021-05-10] MEDS: ASCORBIC ACID 500 MG TAB PO SCH ×2 (10:00→21:48)
[2021-05-10] MEDS: ONDANSETRON HCL 4 MG/2 ML VIAL IV PRN (12:28)
[2021-05-10 12:34] VITALS: BP 128/42
[2021-05-10 16:16] VITALS: BP 120/54
[2021-05-10 21:48] VITALS: BP 120/32
[2021-05-11] MEDS: HYDROcodone-ACET 10/325MG TAB PO PRN ×4 (00:34→20:27)
[2021-05-11] MEDS: PIPERACILLIN-TAZOB 2.25GM 50 ML IV SCH ×5 (01:32→22:31)
[2021-05-11] MEDS: HYDROmorphone HCL 2 MG/ML VL IV PRN ×3 (04:37→22:34)
[2021-05-11 05:00] VITALS: BP 104/47
[2021-05-11] MEDS: FUROSEMIDE 40 MG TAB PO SCH ×2 (05:58→17:48)
[2021-05-11] MEDS: ACCU-CHEK COMFORT CURVE STRIP VI SCH ×4 (06:58→22:33)
[2021-05-11] MEDS: InsuLIN REG 1unit/0.01ml Soln (100units/ml) SC SCH ×4 (06:59→22:33)
[2021-05-11] MEDS: LINEZOLID 600MG/300ML 300 ML IV SCH ×2 (08:00→20:08)
[2021-05-11] MEDS: SEVELAMER 800 MG TAB PO SCH ×3 (08:00→17:48)
[2021-05-11] MEDS: LOPERAMIDE HCL 2 MG CAP PO PRN ×3 (08:15→20:27)
[2021-05-11 09:00] VITALS: BP 122/50
[2021-05-11] MEDS: ZINC SULFATE 220mg CAP or TAB PO SCH (09:30)
[2021-05-11] MEDS: GABAPENTIN 300 MG CAP PO SCH ×2 (09:31→22:32)
[2021-05-11] MEDS: ASCORBIC ACID 500 MG TAB PO SCH ×2 (09:31→22:32)
[2021-05-11] MEDS: MULTIPLE VITAMIN TAB PO SCH (09:31)
[2021-05-11] MEDS: metOLazone 5 MG TAB PO SCH (09:31)
[2021-05-11] MEDS: CARVEDILOL 3.125 MG TAB PO SCH ×3 (09:31→22:31)
[2021-05-11 13:00] VITALS: BP 121/56
[2021-05-11 17:00] VITALS: BP 101/40
[2021-05-11] MEDS: ONDANSETRON HCL 4 MG/2 ML VIAL IV PRN (18:04)
[2021-05-11 22:00] VITALS: BP 117/36
[2021-05-12 05:00] VITALS: BP 108/52
[2021-05-12] MEDS: PIPERACILLIN-TAZOB 2.25GM 50 ML IV SCH ×3 (05:33→22:45)
[2021-05-12] MEDS: FUROSEMIDE 40 MG TAB PO SCH ×2 (06:00→18:00)
[2021-05-12] MEDS: ACCU-CHEK COMFORT CURVE STRIP VI SCH ×4 (06:20→21:43)
[2021-05-12] MEDS: InsuLIN REG 1unit/0.01ml Soln (100units/ml) SC SCH ×4 (06:20→21:56)
[2021-05-12] MEDS: HYDROmorphone HCL 2 MG/ML VL IV PRN ×3 (07:35→20:11)
[2021-05-12] MEDS: SEVELAMER 800 MG TAB PO SCH ×3 (08:00→18:00)
[2021-05-12] MEDS: LINEZOLID 600MG/300ML 300 ML IV SCH ×2 (08:00→20:10)
[2021-05-12] MEDS: LOPERAMIDE HCL 2 MG CAP PO PRN ×3 (08:30→21:45)
[2021-05-12 09:00] VITALS: BP 117/58
[2021-05-12] MEDS: ZINC SULFATE 220mg CAP or TAB PO SCH (10:00)
[2021-05-12] MEDS: GABAPENTIN 300 MG CAP PO SCH ×2 (10:00→21:43)
[2021-05-12] MEDS: CARVEDILOL 3.125 MG TAB PO SCH ×3 (10:00→21:58)
[2021-05-12] MEDS: metOLazone 5 MG TAB PO SCH (10:00)
[2021-05-12] MEDS: HYDROcodone-ACET 10/325MG TAB PO PRN ×3 (10:00→21:45)
[2021-05-12] MEDS: MULTIPLE VITAMIN TAB PO SCH (10:00)
[2021-05-12] MEDS: ASCORBIC ACID 500 MG TAB PO SCH ×2 (10:00→21:43)
[2021-05-12 13:00] VITALS: BP 120/49
[2021-05-12 16:52] VITALS: BP 116/55
[2021-05-12 22:00] VITALS: BP 137/66
[2021-05-13] VITALS (7 sets, daily range): BP systolic 97–143; BP diastolic 43–64
[2021-05-13] MEDS: HYDROmorphone HCL 2 MG/ML VL IV PRN ×3 (02:23→14:45)
[2021-05-13] MEDS: PIPERACILLIN-TAZOB 2.25GM 50 ML IV SCH ×3 (05:51→23:20)
[2021-05-13] MEDS: FUROSEMIDE 40 MG TAB PO SCH ×2 (05:51→17:50)
[2021-05-13] MEDS: LOPERAMIDE HCL 2 MG CAP PO PRN ×2 (05:52→10:49)
[2021-05-13] MEDS: ACCU-CHEK COMFORT CURVE STRIP VI SCH ×4 (05:53→22:30)
[2021-05-13] MEDS: HYDROcodone-ACET 10/325MG TAB PO PRN ×3 (05:53→21:32)
[2021-05-13] MEDS ORDERED: ALBUTEROL SULF 2.5 MG/0.5ML(0.5%) NEB SOLN NEB PRN (06:30)
[2021-05-13] MEDS ORDERED: SODIUM CHL 0.9% 1000 ML BAG XX ONE (07:00)
[2021-05-13] MEDS: InsuLIN REG 1unit/0.01ml Soln (100units/ml) SC SCH ×4 (07:00→22:30)
[2021-05-13] MEDS: SEVELAMER 800 MG TAB PO SCH ×3 (08:00→17:50)
[2021-05-13 09:40] LABS: Eosinophils # (auto) 0.4 10 ^3/uL (0-0.8); Lymphocytes % (auto) 9.3 % (10.0-50.0); Monocytes # (auto) 0.2 10 ^3/uL (0-1.3)
[2021-05-13 09:44] LABS: Basophils # (auto) 0.1 10 ^3/uL (0-0.2); Basophils % (auto) 1.4 % (0.0-2.0); Eosinophils % (auto) 6.6 % (0.0-7.0); Hematocrit 23.8 % (36.0-46.0); Lymphocytes # (auto) 0.5 10 ^3/uL (0.4-5.4); Mean Corpuscular Hemoglobin 29.5 pg (28.0-32.0); Mean Corpuscular Hgb Conc. 33.6 g/dL (32.0-36.0); Mean Corpuscular Volume 87.6 fL (80.0-100.0); Monocytes % (auto) 4.1 % (0.0-12.0); Neutrophils # (auto) 4.6 10 ^3/uL (1.6-8.6); Neutrophils % (auto) 78.6 % (37.0-80.0); Nucleated Red Blood Cells % 0.1 %; Red Blood Cells 2.72 10^6/uL (4.0-5.20); White Blood Cell 5.9 10^3/uL (4.4-10.8)
[2021-05-13] MEDS: CARVEDILOL 3.125 MG TAB PO SCH ×2 (10:00→21:25)
[2021-05-13] MEDS: metOLazone 5 MG TAB PO SCH (10:00)
[2021-05-13] MEDS: LINEZOLID 600MG/300ML 300 ML IV SCH ×2 (10:46→21:25)
[2021-05-13] MEDS: MULTIPLE VITAMIN TAB PO SCH (10:47)
[2021-05-13] MEDS: ZINC SULFATE 220mg CAP or TAB PO SCH (10:47)
[2021-05-13] MEDS: GABAPENTIN 300 MG CAP PO SCH ×2 (10:47→21:25)
[2021-05-13] MEDS: ASCORBIC ACID 500 MG TAB PO SCH ×2 (10:47→21:25)
[2021-05-13] MEDS: ONDANSETRON HCL 4 MG/2 ML VIAL IV PRN (12:10)
[2021-05-13] MEDS ORDERED: HYDROmorphone HCL 2 MG TAB PO PRN (15:00)
[2021-05-13] MEDS ORDERED: EPOETIN ALFA-EPBX 4,000 UNIT/ML VIAL SC ONE (21:00)
[2021-05-14] MEDS: HYDROcodone-ACET 10/325MG TAB PO PRN ×3 (02:35→15:49)
[2021-05-14] MEDS: LOPERAMIDE HCL 2 MG CAP PO PRN ×3 (02:45→15:48)
[2021-05-14 05:00] VITALS: BP 126/53
[2021-05-14] MEDS: FUROSEMIDE 40 MG TAB PO SCH ×2 (06:00→18:34)
[2021-05-14] MEDS: PIPERACILLIN-TAZOB 2.25GM 50 ML IV SCH ×2 (06:28→15:48)
[2021-05-14] MEDS: InsuLIN REG 1unit/0.01ml Soln (100units/ml) SC SCH ×3 (06:38→18:33)
[2021-05-14] MEDS: ACCU-CHEK COMFORT CURVE STRIP VI SCH ×3 (06:38→17:00)
[2021-05-14 08:49] VITALS: BP 122/53
[2021-05-14 09:00] VITALS: BP 102/55
[2021-05-14] MEDS: CARVEDILOL 3.125 MG TAB PO SCH (09:08)
[2021-05-14] MEDS: SEVELAMER 800 MG TAB PO SCH ×4 (09:08→18:34)
[2021-05-14] MEDS: LINEZOLID 600MG/300ML 300 ML IV SCH (09:08)
[2021-05-14] MEDS: GABAPENTIN 300 MG CAP PO SCH (09:14)
[2021-05-14] MEDS: ASCORBIC ACID 500 MG TAB PO SCH (09:14)
[2021-05-14] MEDS: MULTIPLE VITAMIN TAB PO SCH (09:14)
[2021-05-14] MEDS: ZINC SULFATE 220mg CAP or TAB PO SCH (09:15)
[2021-05-14] MEDS: metOLazone 5 MG TAB PO SCH (09:15)
[2021-05-14 13:00] VITALS: BP 121/58
[2021-05-14 16:38] VITALS: BP 106/50
== END 2021-05-14 19:10 | disposition home health service (06) | DRG 239 ==
LOC: ER 10:43 → TELE 12:29 → TELE-CENTR 16:58
PROVIDERS: ADMIT Nurse Practitioner; ATTEND Nurse Practitioner
PROC: 0Y6N0Z0 Detachment at Left Foot, Complete, Open Approach (ICD-10-PCS; principal; 2021-05-08 09:09)
PROC: 5A1D70Z Performance of Urinary Filtration, Intermittent, Less than 6 Hours Per Day (ICD-10-PCS; 2021-05-10)
PROC: 5A1D70Z Performance of Urinary Filtration, Intermittent, Less than 6 Hours Per Day (ICD-10-PCS; 2021-05-13)
DX: E11.52 Type 2 diabetes mellitus with diabetic peripheral angiopathy with gangrene (principal); E43 Unspecified severe protein-calorie malnutrition; N18.6 End stage renal disease; M86.8X7 Other osteomyelitis, ankle and foot; I13.2 Hypertensive heart and chronic kidney disease with heart failure and with stage 5 chronic kidney disease, or end stage renal disease; E11.69 Type 2 diabetes mellitus with other specified complication; E11.22 Type 2 diabetes mellitus with diabetic chronic kidney disease; L08.9 Local infection of the skin and subcutaneous tissue, unspecified; Z20.822 Contact with and (suspected) exposure to COVID-19; G89.18 Other acute postprocedural pain; I50.9 Heart failure, unspecified; J44.9 Chronic obstructive pulmonary disease, unspecified; Z79.01 Long term (current) use of anticoagulants; Z80.41 Family history of malignant neoplasm of ovary; Z80.6 Family history of leukemia; Z83.3 Family history of diabetes mellitus; Z85.850 Personal history of malignant neoplasm of thyroid; Z89.429 Acquired absence of other toe(s), unspecified side; Z99.2 Dependence on renal dialysis; Z79.899 Other long term (current) drug therapy; Z88.8 Allergy status to other drugs, medicaments and biological substances; Z91.013 Allergy to seafood; Z89.432 Acquired absence of left foot
CPT/HCPCS: 36415; 71045; 73700; 80048; 80053; 82962; 84702; 85025; 85610; 85652; 85730; 86850; 86900; 86901; 87070; 87075; 87077; 87081; 87186; 87205; 87426; 90935; 93005; 94640; 96365; 96366; G0378; J0690; J1642; J1815; J2001; J2250; J2405; J2543; J2704; J3490

== ENCOUNTER 2021-05-28 18:12 | Inpatient (IN) | payer MEDICARE, MEDICAID ==
[~2021-05-28] VITALS: Ht 157.5 cm; Wt 95.3 kg
[~2021-05-28 18:12] MED LIST changes: -AMIT10TA6 PO; +AMIT1TAB34 PO; +ASCO500T11 PO; +CHOL20007 PO
[2021-05-28] MEDS ORDERED: ONDANSETRON HCL 4 MG/2 ML VIAL IV ONE (20:00)
[2021-05-28] MEDS ORDERED: HYDROmorphone HCL 2 MG/ML VL IV ONE (20:00)
[2021-05-28 22:55] LABS: Basophils # (auto) 0.1 10 ^3/uL (0-0.2); Basophils % (auto) 1.9 % (0.0-2.0); Eosinophils # (auto) 0.4 10 ^3/uL (0-0.8); Eosinophils % (auto) 5.8 % (0.0-7.0); Hematocrit 27.9 % (36.0-46.0); Hemoglobin 9.1 g/dL (12.2-16.2); Lymphocytes # (auto) 0.8 10 ^3/uL (0.4-5.4); Lymphocytes % (auto) 13.3 % (10.0-50.0); Mean Corpuscular Hemoglobin 29.3 pg (28.0-32.0); Mean Corpuscular Hgb Conc. 32.6 g/dL (32.0-36.0); Mean Corpuscular Volume 89.9 fL (80.0-100.0); Monocytes # (auto) 0.5 10 ^3/uL (0-1.3); Monocytes % (auto) 7.7 % (0.0-12.0); Neutrophils # (auto) 4.5 10 ^3/uL (1.6-8.6); Neutrophils % (auto) 71.3 % (37.0-80.0); Nucleated Red Blood Cells % 0.1 %; Red Cell Distribution Width 19.2 % (11.8-14.3); White Blood Cell 6.3 10^3/uL (4.4-10.8)
[2021-05-28 23:10] LABS: INR 1.44 (0.9-1.15)
[2021-05-28 23:17] LABS: Albumin 2.5 g/dL (3.4-5.0); BUN/Creatinine Ratio 7.2; Calcium 8.4 mg/dL (8.5-10.1); Magnesium 2.4 mg/dL (1.6-2.6); Potassium 4.3 mmol/L (3.5-5.1)
[2021-05-28 23:20] LABS: Bilirubin, Total 0.3 mg/dL (0.2-1.0); Phosphorus 4.7 mg/dL (2.5-4.90); Total Protein 7.1 g/dL (6.4-8.2)
[2021-05-29] VITALS (11 sets, daily range): BP systolic 98–124; BP diastolic 53–70
[2021-05-29] MEDS: PIPERACILLIN-TAZOB 2.25GM 50 ML IV SCH ×3 (02:10→21:17)
[2021-05-29] MEDS: MORPHINE SULFATE INJECTION 2 MG/ML SYRG IV PRN ×3 (04:01→21:18)
[2021-05-29 05:40] LABS: Basophils # (auto) 0.1 10 ^3/uL (0-0.2); Eosinophils # (auto) 0.3 10 ^3/uL (0-0.8); Mean Corpuscular Volume 90.4 fL (80.0-100.0); Monocytes # (auto) 0.5 10 ^3/uL (0-1.3); Neutrophils # (auto) 4.2 10 ^3/uL (1.6-8.6); White Blood Cell 6.1 10^3/uL (4.4-10.8)
[2021-05-29 05:47] LABS: Eosinophils % (auto) 5.3 % (0.0-7.0); Hematocrit 19.7 % (36.0-46.0); Lymphocytes % (auto) 16.7 % (10.0-50.0); Mean Corpuscular Hemoglobin 30.4 pg (28.0-32.0); Mean Corpuscular Hgb Conc. 33.6 g/dL (32.0-36.0); Monocytes % (auto) 8.7 % (0.0-12.0); Neutrophils % (auto) 68.3 % (37.0-80.0); Red Blood Cells 2.18 10^6/uL (4.0-5.20); Red Cell Distribution Width 18.9 % (11.8-14.3)
[2021-05-29 05:56] LABS: Hemoglobin 6.6 g/dL (12.2-16.2)
[2021-05-29 06:28] LABS: Albumin 2.1 g/dL (3.4-5.0); Bilirubin, Total 0.3 mg/dL (0.2-1.0); Calcium 8.1 mg/dL (8.5-10.1); Total Protein 6.3 g/dL (6.4-8.2)
[2021-05-29] MEDS: InsuLIN REG 1unit/0.01ml Soln (100units/ml) SC SCH ×3 (11:30→21:10)
[2021-05-29] MEDS: ACCU-CHEK COMFORT CURVE STRIP VI SCH ×4 (12:27→21:10)
[2021-05-29] MEDS ORDERED: ceFAZolin 1GM VL ONE ×2 (14:12→15:15)
[2021-05-29] MEDS ORDERED: SODIUM CHLORIDE LOCK 10 ML ONE (14:21)
[2021-05-29] MEDS ORDERED: ONDANSETRON HCL 4 MG/2 ML VIAL ONE (14:21)
[2021-05-29] MEDS ORDERED: PROPOFOL 10 MG/ML 20 ML IV ONE (14:21)
[2021-05-29] MEDS ORDERED: MIDAZOLAM HCL 2MG/2ML 2ml VIAL (1mg/ml) ONE ×2 (14:21→15:19)
[2021-05-29] MEDS ORDERED: fentaNYL CITRATE 100 MCG/2 ML VL ONE (14:21)
[2021-05-29] MEDS ORDERED: ceFAZolin 1GM/50ML 100 ML IV ONE (14:47)
[2021-05-29] MEDS ORDERED: MORPHINE SULFATE INJECTION 2 MG/ML SYRG IV ONE (16:10)
[2021-05-29] MEDS ORDERED: MORPHINE SULFATE INJECTION 2 MG/ML SYRG ONE (16:11)
[2021-05-29] MEDS ORDERED: ONDANSETRON HCL 4 MG/2 ML VIAL IV PRN (16:15)
[2021-05-29] MEDS ORDERED: MORPHINE SULFATE 4 MG/ML SYR/VIAL IV PRN (16:15)
[2021-05-29] MEDS ORDERED: MIDAZOLAM HCL 2MG/2ML 2ml VIAL (1mg/ml) IV PRN (16:15)
[2021-05-29] MEDS ORDERED: HYDROmorphone HCL 2 MG/ML VL IV PRN (16:15)
[2021-05-29] MEDS: FUROSEMIDE 40 MG TAB PO SCH (17:26)
[2021-05-29] MEDS: HYDROcodone-ACET 10/325MG TAB PO PRN ×2 (17:42→23:45)
[2021-05-29] MEDS: CARVEDILOL 3.125 MG TAB PO SCH (21:18)
[2021-05-29] MEDS: GABAPENTIN 300 MG CAP PO SCH (21:18)
[2021-05-30] MEDS: MORPHINE SULFATE INJECTION 2 MG/ML SYRG IV PRN ×3 (04:03→21:45)
[2021-05-30 05:34] VITALS: BP 101/57
[2021-05-30] MEDS: FUROSEMIDE 40 MG TAB PO SCH ×2 (06:00→17:32)
[2021-05-30 06:04] LABS: Basophils # (auto) 0.1 10 ^3/uL (0-0.2); Hemoglobin 7.6 g/dL (12.2-16.2); Mean Corpuscular Hemoglobin 31.6 pg (28.0-32.0); Mean Corpuscular Hgb Conc. 34.6 g/dL (32.0-36.0); Monocytes # (auto) 0.4 10 ^3/uL (0-1.3); Nucleated Red Blood Cells % 0.1 %; White Blood Cell 5.8 10^3/uL (4.4-10.8)
[2021-05-30 06:08] LABS: Basophils % (auto) 1.1 % (0.0-2.0); Eosinophils # (auto) 0.4 10 ^3/uL (0-0.8); Eosinophils % (auto) 7.8 % (0.0-7.0); Lymphocytes # (auto) 0.9 10 ^3/uL (0.4-5.4); Lymphocytes % (auto) 14.9 % (10.0-50.0); Mean Corpuscular Volume 91.5 fL (80.0-100.0); Monocytes % (auto) 7.7 % (0.0-12.0); Neutrophils # (auto) 3.9 10 ^3/uL (1.6-8.6); Neutrophils % (auto) 68.5 % (37.0-80.0); Red Blood Cells 2.41 10^6/uL (4.0-5.20); Red Cell Distribution Width 18.2 % (11.8-14.3)
[2021-05-30 06:14] LABS: INR 1.37 (0.9-1.15)
[2021-05-30] MEDS: ACCU-CHEK COMFORT CURVE STRIP VI SCH ×4 (06:15→21:32)
[2021-05-30] MEDS: InsuLIN REG 1unit/0.01ml Soln (100units/ml) SC SCH ×4 (06:15→21:40)
[2021-05-30 06:20] LABS: Albumin 2.1 g/dL (3.4-5.0); Potassium 4.5 mmol/L (3.5-5.1)
[2021-05-30 06:24] LABS: Bilirubin, Total 0.4 mg/dL (0.2-1.0); Total Protein 6.3 g/dL (6.4-8.2)
[2021-05-30] MEDS ORDERED: SODIUM CHL 0.9% 1000 ML BAG XX ONE (07:00)
[2021-05-30] MEDS ORDERED: CATHFLO ACTIVASE (ALTEPLASE) 2 MG VIAL IV ONE (08:45)
[2021-05-30 09:00] VITALS: BP 141/52
[2021-05-30] MEDS: CARVEDILOL 3.125 MG TAB PO SCH ×2 (12:26→22:00)
[2021-05-30] MEDS: GABAPENTIN 300 MG CAP PO SCH ×2 (12:26→21:45)
[2021-05-30] MEDS: ASCORBIC ACID 500 MG TAB PO SCH (12:27)
[2021-05-30] MEDS: HYDROcodone-ACET 10/325MG TAB PO PRN ×2 (12:27→18:40)
[2021-05-30] MEDS: PIPERACILLIN-TAZOB 2.25GM 50 ML IV SCH ×2 (12:28→21:46)
[2021-05-30 12:44] VITALS: BP 131/66
[2021-05-30 17:08] VITALS: BP 105/51
[2021-05-30] MEDS ORDERED: EPOETIN ALFA-EPBX 10,000 UNIT/1ML VIAL SC ONE (21:00)
[2021-05-30 22:00] VITALS: BP 100/67
[2021-05-31 05:00] VITALS: BP 101/55
[2021-05-31] MEDS: FUROSEMIDE 40 MG TAB PO SCH ×2 (06:00→17:39)
[2021-05-31] MEDS: HYDROcodone-ACET 10/325MG TAB PO PRN ×3 (06:04→20:50)
[2021-05-31 06:10] LABS: Basophils # (auto) 0.1 10 ^3/uL (0-0.2); Basophils % (auto) 1.2 % (0.0-2.0); Eosinophils # (auto) 0.5 10 ^3/uL (0-0.8); Monocytes # (auto) 0.5 10 ^3/uL (0-1.3)
[2021-05-31] MEDS: ACCU-CHEK COMFORT CURVE STRIP VI SCH ×4 (06:10→21:26)
[2021-05-31] MEDS: InsuLIN REG 1unit/0.01ml Soln (100units/ml) SC SCH ×4 (06:11→21:27)
[2021-05-31 06:14] LABS: Eosinophils % (auto) 9.4 % (0.0-7.0); Hematocrit 22.8 % (36.0-46.0); Hemoglobin 7.6 g/dL (12.2-16.2); Lymphocytes # (auto) 1.1 10 ^3/uL (0.4-5.4); Lymphocytes % (auto) 19.5 % (10.0-50.0); Mean Corpuscular Hgb Conc. 33.4 g/dL (32.0-36.0); Mean Corpuscular Volume 92.7 fL (80.0-100.0); Monocytes % (auto) 9.9 % (0.0-12.0); Neutrophils # (auto) 3.3 10 ^3/uL (1.6-8.6); Red Blood Cells 2.46 10^6/uL (4.0-5.20); Red Cell Distribution Width 18.1 % (11.8-14.3); White Blood Cell 5.5 10^3/uL (4.4-10.8)
[2021-05-31 06:48] LABS: Albumin 2.1 g/dL (3.4-5.0); Anion Gap 6 (5-15); BUN/Creatinine Ratio 6.7; Blood Urea Nitrogen 28 mg/dL (7-18); Calcium 8.1 mg/dL (8.5-10.1); Carbon Dioxide 29 mmol/L (21-32); Chloride 103 mmol/L (98-107); GFR African American 14 mL/min; GFR Non-African American 12 mL/min; Glucose 70 mg/dL (74-106); Potassium 4.3 mmol/L (3.5-5.1); Sodium 138 mmol/L (136-145)
[2021-05-31 06:51] LABS: Alanine Aminotransferase < 6 U/L (13-56); Alkaline Phosphatase 62 U/L (45-117); Aspartate Aminotransferase 12 U/L (15-37); Bilirubin, Total 0.4 mg/dL (0.2-1.0); Total Protein 6.3 g/dL (6.4-8.2)
[2021-05-31 08:00] VITALS: BP 107/31
[2021-05-31] MEDS: PIPERACILLIN-TAZOB 2.25GM 50 ML IV SCH ×2 (10:17→21:27)
[2021-05-31] MEDS: CARVEDILOL 3.125 MG TAB PO SCH ×2 (10:18→21:40)
[2021-05-31] MEDS: ASCORBIC ACID 500 MG TAB PO SCH (10:18)
[2021-05-31] MEDS: GABAPENTIN 300 MG CAP PO SCH ×2 (10:18→21:26)
[2021-05-31] MEDS: MORPHINE SULFATE INJECTION 2 MG/ML SYRG IV PRN (10:19)
[2021-05-31] MEDS: LINEZOLID 600MG/300ML 300 ML IV SCH ×2 (15:55→23:35)
[2021-05-31 22:00] VITALS: BP 128/73
[2021-06-01] MEDS: MORPHINE SULFATE INJECTION 2 MG/ML SYRG IV PRN ×3 (01:09→17:14)
[2021-06-01] MEDS: HYDROcodone-ACET 10/325MG TAB PO PRN ×3 (04:40→21:06)
[2021-06-01 05:00] VITALS: BP 96/48
[2021-06-01 05:59] LABS: Basophils # (auto) 0.1 10 ^3/uL (0-0.2); Basophils % (auto) 1.4 % (0.0-2.0); Eosinophils # (auto) 0.5 10 ^3/uL (0-0.8); Eosinophils % (auto) 9.7 % (0.0-7.0); Hematocrit 22.9 % (36.0-46.0); Hemoglobin 7.8 g/dL (12.2-16.2); Lymphocytes # (auto) 0.9 10 ^3/uL (0.4-5.4); Lymphocytes % (auto) 17.9 % (10.0-50.0); Mean Corpuscular Hgb Conc. 33.9 g/dL (32.0-36.0); Mean Corpuscular Volume 91.6 fL (80.0-100.0); Monocytes # (auto) 0.4 10 ^3/uL (0-1.3); Monocytes % (auto) 7.7 % (0.0-12.0); Neutrophils # (auto) 3.3 10 ^3/uL (1.6-8.6); Neutrophils % (auto) 63.3 % (37.0-80.0); Red Cell Distribution Width 18.2 % (11.8-14.3); White Blood Cell 5.2 10^3/uL (4.4-10.8)
[2021-06-01] MEDS: FUROSEMIDE 40 MG TAB PO SCH ×2 (06:00→18:05)
[2021-06-01] MEDS: InsuLIN REG 1unit/0.01ml Soln (100units/ml) SC SCH ×4 (06:32→22:00)
[2021-06-01] MEDS: ACCU-CHEK COMFORT CURVE STRIP VI SCH ×4 (06:32→22:13)
[2021-06-01] MEDS ORDERED: SODIUM CHL 0.9% 1000 ML BAG XX ONE (07:00)
[2021-06-01 08:00] VITALS: BP 135/71
[2021-06-01 09:00] VITALS: BP 135/71
[2021-06-01] MEDS: PIPERACILLIN-TAZOB 2.25GM 50 ML IV SCH ×2 (11:49→21:57)
[2021-06-01] MEDS: GABAPENTIN 300 MG CAP PO SCH ×2 (11:51→21:05)
[2021-06-01] MEDS: CARVEDILOL 3.125 MG TAB PO SCH ×2 (11:51→22:00)
[2021-06-01] MEDS: ASCORBIC ACID 500 MG TAB PO SCH (11:52)
[2021-06-01 13:00] VITALS: BP 145/61
[2021-06-01] MEDS: LINEZOLID 600MG/300ML 300 ML IV SCH (14:40)
[2021-06-01 17:00] VITALS: BP 114/37
[2021-06-01] MEDS ORDERED: EPOETIN ALFA-EPBX 10,000 UNIT/1ML VIAL SC ONE (21:00)
[2021-06-01 22:00] VITALS: BP 133/74
[2021-06-02] MEDS: LINEZOLID 600MG/300ML 300 ML IV SCH ×2 (00:36→12:14)
[2021-06-02] MEDS: HYDROcodone-ACET 10/325MG TAB PO PRN ×2 (03:55→14:07)
[2021-06-02 05:00] VITALS: BP 109/57
[2021-06-02] MEDS: FUROSEMIDE 40 MG TAB PO SCH ×2 (06:15→18:12)
[2021-06-02] MEDS: InsuLIN REG 1unit/0.01ml Soln (100units/ml) SC SCH ×4 (06:22→22:00)
[2021-06-02] MEDS: ACCU-CHEK COMFORT CURVE STRIP VI SCH ×4 (06:23→22:00)
[2021-06-02 08:00] VITALS: BP 137/30
[2021-06-02] MEDS: CARVEDILOL 3.125 MG TAB PO SCH ×2 (09:56→22:00)
[2021-06-02] MEDS: PIPERACILLIN-TAZOB 2.25GM 50 ML IV SCH ×2 (09:56→21:34)
[2021-06-02] MEDS: GABAPENTIN 300 MG CAP PO SCH ×2 (09:57→21:35)
[2021-06-02] MEDS: ASCORBIC ACID 500 MG TAB PO SCH (09:57)
[2021-06-02 13:03] VITALS: BP 108/71
[2021-06-02 16:47] VITALS: BP 94/56
[2021-06-02] MEDS: MORPHINE SULFATE INJECTION 2 MG/ML SYRG IV PRN (20:41)
[2021-06-02 22:00] VITALS: BP 120/40
[2021-06-03 00:10] LABS: INR 1.18 (0.9-1.15)
[2021-06-03] MEDS ORDERED: WARFARIN SODIUM 10 MG TAB PO ONE (00:24)
[2021-06-03] MEDS: LINEZOLID 600MG/300ML 300 ML IV SCH ×2 (00:27→11:29)
[2021-06-03] MEDS: HYDROcodone-ACET 10/325MG TAB PO PRN ×4 (01:36→21:32)
[2021-06-03 05:32] VITALS: BP 119/42
[2021-06-03] MEDS: FUROSEMIDE 40 MG TAB PO SCH ×2 (05:41→16:24)
[2021-06-03] MEDS: InsuLIN REG 1unit/0.01ml Soln (100units/ml) SC SCH ×4 (05:51→21:42)
[2021-06-03] MEDS: ACCU-CHEK COMFORT CURVE STRIP VI SCH ×4 (05:52→21:42)
[2021-06-03] MEDS: MORPHINE SULFATE INJECTION 2 MG/ML SYRG IV PRN ×3 (06:07→20:38)
[2021-06-03] MEDS ORDERED: SODIUM CHL 0.9% 1000 ML BAG XX ONE (07:00)
[2021-06-03 07:22] LABS: Basophils # (auto) 0.1 10 ^3/uL (0-0.2); Eosinophils # (auto) 0.5 10 ^3/uL (0-0.8)
[2021-06-03 07:24] LABS: Basophils % (auto) 1.1 % (0.0-2.0); Eosinophils % (auto) 9.5 % (0.0-7.0); Hematocrit 24.7 % (36.0-46.0); Hemoglobin 8.3 g/dL (12.2-16.2); Mean Corpuscular Hemoglobin 30.4 pg (28.0-32.0); Mean Corpuscular Hgb Conc. 33.5 g/dL (32.0-36.0); Mean Corpuscular Volume 90.7 fL (80.0-100.0); Monocytes # (auto) 0.5 10 ^3/uL (0-1.3); Neutrophils # (auto) 3.2 10 ^3/uL (1.6-8.6); Neutrophils % (auto) 61.4 % (37.0-80.0); Red Blood Cells 2.72 10^6/uL (4.0-5.20); Red Cell Distribution Width 18.2 % (11.8-14.3); White Blood Cell 5.2 10^3/uL (4.4-10.8)
[2021-06-03 07:39] LABS: INR 1.17 (0.9-1.15)
[2021-06-03 07:46] LABS: Calcium 8.4 mg/dL (8.5-10.1); Potassium 4.1 mmol/L (3.5-5.1)
[2021-06-03 09:00] VITALS: BP 115/74
[2021-06-03] MEDS: GABAPENTIN 300 MG CAP PO SCH ×2 (09:04→21:28)
[2021-06-03] MEDS: PIPERACILLIN-TAZOB 2.25GM 50 ML IV SCH ×2 (09:04→21:27)
[2021-06-03] MEDS: CARVEDILOL 3.125 MG TAB PO SCH ×2 (09:04→21:28)
[2021-06-03] MEDS: ASCORBIC ACID 500 MG TAB PO SCH (09:05)
[2021-06-03 12:48] VITALS: BP 122/55
[2021-06-03 16:55] VITALS: BP 104/53
[2021-06-03] MEDS ORDERED: EPOETIN ALFA-EPBX 10,000 UNIT/1ML VIAL SC ONE (21:00)
[2021-06-03 22:00] VITALS: BP 125/61
[2021-06-04] MEDS: LINEZOLID 600MG/300ML 300 ML IV SCH ×3 (00:29→23:50)
[2021-06-04] MEDS: MORPHINE SULFATE INJECTION 2 MG/ML SYRG IV PRN ×4 (02:42→23:52)
[2021-06-04] MEDS: HYDROcodone-ACET 10/325MG TAB PO PRN ×4 (03:37→22:45)
[2021-06-04 05:00] VITALS: BP 100/51
[2021-06-04] MEDS: FUROSEMIDE 40 MG TAB PO SCH ×2 (06:12→17:12)
[2021-06-04] MEDS: ACCU-CHEK COMFORT CURVE STRIP VI SCH ×4 (06:19→21:43)
[2021-06-04] MEDS: InsuLIN REG 1unit/0.01ml Soln (100units/ml) SC SCH ×4 (06:19→21:43)
[2021-06-04 06:39] LABS: Basophils # (auto) 0.1 10 ^3/uL (0-0.2); Eosinophils # (auto) 0.5 10 ^3/uL (0-0.8); Lymphocytes % (auto) 24.8 % (10.0-50.0); Neutrophils # (auto) 3.1 10 ^3/uL (1.6-8.6); Nucleated Red Blood Cells % 0.3 %; Red Cell Distribution Width 18.3 % (11.8-14.3)
[2021-06-04 06:42] LABS: Basophils % (auto) 1.3 % (0.0-2.0); Eosinophils % (auto) 8.7 % (0.0-7.0); Hematocrit 24.4 % (36.0-46.0); Hemoglobin 8.3 g/dL (12.2-16.2); Lymphocytes # (auto) 1.3 10 ^3/uL (0.4-5.4); Mean Corpuscular Hgb Conc. 34.1 g/dL (32.0-36.0); Mean Corpuscular Volume 90.9 fL (80.0-100.0); Monocytes # (auto) 0.4 10 ^3/uL (0-1.3); Monocytes % (auto) 8.2 % (0.0-12.0); Red Blood Cells 2.69 10^6/uL (4.0-5.20); White Blood Cell 5.4 10^3/uL (4.4-10.8)
[2021-06-04 06:52] LABS: INR 1.21 (0.9-1.15)
[2021-06-04 09:00] VITALS: BP 117/72
[2021-06-04] MEDS: GABAPENTIN 300 MG CAP PO SCH ×2 (09:26→21:43)
[2021-06-04] MEDS: CARVEDILOL 3.125 MG TAB PO SCH ×2 (09:26→21:43)
[2021-06-04] MEDS: ASCORBIC ACID 500 MG TAB PO SCH (09:26)
[2021-06-04] MEDS: PIPERACILLIN-TAZOB 2.25GM 50 ML IV SCH ×2 (10:21→21:43)
[2021-06-04 13:00] VITALS: BP 135/80
[2021-06-04 17:00] VITALS: BP 118/49
[2021-06-04] MEDS ORDERED: WARFARIN SODIUM 2.5 MG TAB PO ONE (17:00)
[2021-06-04] MEDS: ONDANSETRON HCL 4 MG/2 ML VIAL IV PRN (18:13)
[2021-06-04 22:00] VITALS: BP 124/61
[2021-06-05] MEDS: MORPHINE SULFATE INJECTION 2 MG/ML SYRG IV PRN ×2 (03:52→15:40)
[2021-06-05] MEDS: HYDROcodone-ACET 10/325MG TAB PO PRN ×3 (04:56→20:28)
[2021-06-05 05:00] VITALS: BP 121/64
[2021-06-05] MEDS: FUROSEMIDE 40 MG TAB PO SCH ×2 (05:21→18:30)
[2021-06-05 05:42] LABS: INR 1.21 (0.9-1.15); Partial Thromboplastin Time 24.5 sec (23.6-33.0)
[2021-06-05 05:47] LABS: Potassium 4.5 mmol/L (3.5-5.1)
[2021-06-05 05:50] LABS: BUN/Creatinine Ratio 6.5; Phosphorus 5.6 mg/dL (2.5-4.90)
[2021-06-05] MEDS: InsuLIN REG 1unit/0.01ml Soln (100units/ml) SC SCH ×4 (06:04→21:59)
[2021-06-05] MEDS: ACCU-CHEK COMFORT CURVE STRIP VI SCH ×4 (06:04→21:59)
[2021-06-05] MEDS ORDERED: SODIUM CHL 0.9% 1000 ML BAG XX ONE (07:00)
[2021-06-05 08:56] VITALS: BP 114/43
[2021-06-05] MEDS: CARVEDILOL 3.125 MG TAB PO SCH ×2 (10:00→21:59)
[2021-06-05] MEDS: PIPERACILLIN-TAZOB 2.25GM 50 ML IV SCH ×2 (10:05→21:58)
[2021-06-05] MEDS: ASCORBIC ACID 500 MG TAB PO SCH (10:06)
[2021-06-05] MEDS: B-COMPLEX W/ C & FOLIC ACID(NEPHROVITE TAB) PO SCH (10:06)
[2021-06-05] MEDS: GABAPENTIN 300 MG CAP PO SCH ×2 (10:06→21:59)
[2021-06-05 13:00] VITALS: BP 141/54
[2021-06-05] MEDS: LINEZOLID 600MG/300ML 300 ML IV SCH (13:14)
[2021-06-05] MEDS: ONDANSETRON HCL 4 MG/2 ML VIAL IV PRN (13:15)
[2021-06-05 17:00] VITALS: BP 137/72
[2021-06-05] MEDS ORDERED: WARFARIN SODIUM 10 MG TAB PO ONE (17:00)
[2021-06-05] MEDS ORDERED: EPOETIN ALFA-EPBX 4,000 UNIT/ML VIAL SC ONE (21:00)
[2021-06-05 22:00] VITALS: BP 132/75
[2021-06-06] MEDS: LINEZOLID 600MG/300ML 300 ML IV SCH ×2 (00:08→12:08)
[2021-06-06 05:00] VITALS: BP 99/59
[2021-06-06] MEDS: FUROSEMIDE 40 MG TAB PO SCH (06:00)
[2021-06-06] MEDS: InsuLIN REG 1unit/0.01ml Soln (100units/ml) SC SCH ×2 (06:31→11:30)
[2021-06-06] MEDS: ACCU-CHEK COMFORT CURVE STRIP VI SCH ×2 (06:31→11:54)
[2021-06-06] MEDS: HYDROcodone-ACET 10/325MG TAB PO PRN ×2 (07:01→13:47)
[2021-06-06 07:25] LABS: INR 1.21 (0.9-1.15)
[2021-06-06 09:18] VITALS: BP 127/66
[2021-06-06] MEDS: PIPERACILLIN-TAZOB 2.25GM 50 ML IV SCH (10:27)
[2021-06-06] MEDS: GABAPENTIN 300 MG CAP PO SCH (10:28)
[2021-06-06] MEDS: B-COMPLEX W/ C & FOLIC ACID(NEPHROVITE TAB) PO SCH (10:28)
[2021-06-06] MEDS: ASCORBIC ACID 500 MG TAB PO SCH (10:28)
[2021-06-06] MEDS: CARVEDILOL 3.125 MG TAB PO SCH (10:28)
[2021-06-06 13:00] VITALS: BP 141/42
[2021-06-06] MEDS ORDERED: WARFARIN SODIUM 5 MG TAB PO ONE (17:00)
[2021-06-07] MEDS ORDERED: SODIUM CHL 0.9% 1000 ML BAG XX ONE (07:00)
[2021-06-07] MEDS ORDERED: EPOETIN ALFA-EPBX 4,000 UNIT/ML VIAL SC ONE (21:00)
== END 2021-06-06 14:33 | disposition home health service (06) | DRG 503 ==
LOC: ER 18:14 → TELE 22:39 → TELE-WESTW 23:30
PROVIDERS: ADMIT Internal Medicine; ATTEND Internal Medicine
PROC: 0QBP0ZZ Excision of Left Metatarsal, Open Approach (ICD-10-PCS; principal; 2021-05-29 15:09)
PROC: 5A1D70Z Performance of Urinary Filtration, Intermittent, Less than 6 Hours Per Day (ICD-10-PCS; 2021-05-30)
PROC: 5A1D70Z Performance of Urinary Filtration, Intermittent, Less than 6 Hours Per Day (ICD-10-PCS; 2021-05-30)
PROC: 5A1D70Z Performance of Urinary Filtration, Intermittent, Less than 6 Hours Per Day (ICD-10-PCS; 2021-05-30)
PROC: 5A1D70Z Performance of Urinary Filtration, Intermittent, Less than 6 Hours Per Day (ICD-10-PCS; 2021-05-30)
DX: T87.54 Necrosis of amputation stump, left lower extremity (principal); N18.6 End stage renal disease; I13.2 Hypertensive heart and chronic kidney disease with heart failure and with stage 5 chronic kidney disease, or end stage renal disease; M86.8X7 Other osteomyelitis, ankle and foot; D68.9 Coagulation defect, unspecified; E11.52 Type 2 diabetes mellitus with diabetic peripheral angiopathy with gangrene; E11.621 Type 2 diabetes mellitus with foot ulcer; Z20.822 Contact with and (suspected) exposure to COVID-19; L97.509 Non-pressure chronic ulcer of other part of unspecified foot with unspecified severity; D63.1 Anemia in chronic kidney disease; C73 Malignant neoplasm of thyroid gland; E11.22 Type 2 diabetes mellitus with diabetic chronic kidney disease; E11.69 Type 2 diabetes mellitus with other specified complication; M89.8X9 Other specified disorders of bone, unspecified site; Z99.2 Dependence on renal dialysis; Z80.41 Family history of malignant neoplasm of ovary; Z80.6 Family history of leukemia; Z83.3 Family history of diabetes mellitus; Z85.850 Personal history of malignant neoplasm of thyroid; Z89.432 Acquired absence of left foot; Z88.8 Allergy status to other drugs, medicaments and biological substances; Z91.013 Allergy to seafood
CPT/HCPCS: 36415; 71045; 73700; 80048; 80053; 82962; 83605; 83735; 84100; 84702; 85025; 85610; 85730; 86850; 86900; 86901; 86922; 87040; 87081; 87340; 87426; 90935; 93005; 93925; 93971; G0378; J0690; J1642; J1815; J2250; J2405; J2543; J2704

== ENCOUNTER 2021-06-28 12:24 | Emergency (ER) | payer MEDICARE, MEDICAID ==
[~2021-06-28] VITALS: Ht 157.5 cm; Wt 90.7 kg
[~2021-06-28 12:24] MED LIST changes: +AMIT10TA6 PO; -AMIT1TAB34 PO
[2021-06-28 14:06] VITALS: BP 113/71
== END 2021-06-28 14:29 | disposition home or self-care (01) ==
LOC: ER 12:24
DX: M79.672 Pain in left foot (principal); I13.2 Hypertensive heart and chronic kidney disease with heart failure and with stage 5 chronic kidney disease, or end stage renal disease; E11.22 Type 2 diabetes mellitus with diabetic chronic kidney disease; N18.6 End stage renal disease; I50.9 Heart failure, unspecified; J44.9 Chronic obstructive pulmonary disease, unspecified; Z76.0 Encounter for issue of repeat prescription; Z79.01 Long term (current) use of anticoagulants; Z79.4 Long term (current) use of insulin; Z79.899 Other long term (current) drug therapy; Z88.8 Allergy status to other drugs, medicaments and biological substances; Z91.013 Allergy to seafood

== ENCOUNTER 2021-07-08 17:44 | Inpatient (IN) | payer MEDICARE, MEDICAID ==
[~2021-07-08] VITALS: Ht 167.6 cm; Wt 94.5 kg
[~2021-07-08 17:44] MED LIST changes: -AMIT10TA6 PO; +AMIT1TAB34 PO
[2021-07-08 18:25] LABS: Basophils # (auto) 0.1 10 ^3/uL (0-0.2); Eosinophils # (auto) 0.6 10 ^3/uL (0-0.8); Eosinophils % (auto) 8.5 % (0.0-7.0); Hematocrit 28.6 % (36.0-46.0); Hemoglobin 9.2 g/dL (12.2-16.2); Lymphocytes # (auto) 0.6 10 ^3/uL (0.4-5.4); Lymphocytes % (auto) 8.5 % (10.0-50.0); Mean Corpuscular Hemoglobin 30.2 pg (28.0-32.0); Mean Corpuscular Hgb Conc. 32.2 g/dL (32.0-36.0); Mean Corpuscular Volume 93.8 fL (80.0-100.0); Monocytes # (auto) 0.4 10 ^3/uL (0-1.3); Monocytes % (auto) 5.8 % (0.0-12.0); Neutrophils # (auto) 5.6 10 ^3/uL (1.6-8.6); Neutrophils % (auto) 76.2 % (37.0-80.0); Nucleated Red Blood Cells % 0.2 %; Red Blood Cells 3.05 10^6/uL (4.0-5.20); Red Cell Distribution Width 19.8 % (11.8-14.3); White Blood Cell 7.3 10^3/uL (4.4-10.8)
[2021-07-08 18:47] LABS: Albumin 1.9 g/dL (3.4-5.0); BUN/Creatinine Ratio 6.6; Calcium 7.6 mg/dL (8.5-10.1); Magnesium 1.9 mg/dL (1.6-2.6); Potassium 3.1 mmol/L (3.5-5.1)
[2021-07-08 18:52] LABS: Bilirubin, Total 0.3 mg/dL (0.2-1.0); Total Protein 6.4 g/dL (6.4-8.2)
[2021-07-08] MEDS ORDERED: HYDROcodone-ACET 10/325MG TAB PO ONE (21:30)
[2021-07-08] MEDS ORDERED: NITROGLYCERIN 0.4 MG SL TAB SL PRN (21:45)
[2021-07-08] MEDS ORDERED: DEXTROSE (50%) 50ML SYRG IV PRN (21:45)
[2021-07-08] MEDS ORDERED: hydrALAZINE HCL 20 MG/ML VL IV PRN (21:45)
[2021-07-08] MEDS ORDERED: MORPHINE SULFATE INJECTION 2 MG/ML SYRG IV PRN (21:45)
[2021-07-08] MEDS ORDERED: ONDANSETRON HCL 4 MG/2 ML VIAL IV PRN (22:00)
[2021-07-08] MEDS ORDERED: AMITRIPTYLINE HCL 10 MG TAB PO SCH (22:00)
[2021-07-08] MEDS: GABAPENTIN 300 MG CAP PO SCH (23:15)
[2021-07-08] MEDS: InsuLIN REG 1unit/0.01ml Soln (100units/ml) SC SCH (23:15)
[2021-07-08] MEDS: ACCU-CHEK COMFORT CURVE STRIP VI SCH (23:15)
[2021-07-08] MEDS: CARVEDILOL 3.125 MG TAB PO SCH (23:15)
[2021-07-09 04:58] LABS: Basophils # (auto) 0.1 10 ^3/uL (0-0.2); Basophils % (auto) 1.1 % (0.0-2.0); Eosinophils # (auto) 0.6 10 ^3/uL (0-0.8); Eosinophils % (auto) 8.4 % (0.0-7.0); Hematocrit 26.1 % (36.0-46.0); Hemoglobin 8.5 g/dL (12.2-16.2); Lymphocytes % (auto) 13.9 % (10.0-50.0); Mean Corpuscular Hemoglobin 30.4 pg (28.0-32.0); Mean Corpuscular Hgb Conc. 32.5 g/dL (32.0-36.0); Mean Corpuscular Volume 93.6 fL (80.0-100.0); Monocytes # (auto) 0.4 10 ^3/uL (0-1.3); Monocytes % (auto) 5.9 % (0.0-12.0); Neutrophils # (auto) 5.1 10 ^3/uL (1.6-8.6); Neutrophils % (auto) 70.7 % (37.0-80.0); Red Blood Cells 2.79 10^6/uL (4.0-5.20); Red Cell Distribution Width 19.5 % (11.8-14.3); White Blood Cell 7.2 10^3/uL (4.4-10.8)
[2021-07-09 05:14] LABS: Albumin 1.7 g/dL (3.4-5.0); Calcium 7.4 mg/dL (8.5-10.1)
[2021-07-09 05:19] LABS: Bilirubin, Total 0.3 mg/dL (0.2-1.0); Total Protein 5.8 g/dL (6.4-8.2)
[2021-07-09] MEDS: InsuLIN REG 1unit/0.01ml Soln (100units/ml) SC SCH ×4 (07:31→21:38)
[2021-07-09] MEDS: ACCU-CHEK COMFORT CURVE STRIP VI SCH ×4 (07:31→21:32)
[2021-07-09] MEDS: HYDROcodone-ACET 10/325MG TAB PO PRN ×2 (07:45→18:28)
[2021-07-09] MEDS ORDERED: SEVELAMER CARBONATE PO SCH (08:00)
[2021-07-09] MEDS: SEVELAMER 800 MG TAB PO SCH ×3 (08:11→18:18)
[2021-07-09 08:39] LABS: INR 2.29 (0.9-1.15)
[2021-07-09] MEDS: FUROSEMIDE 40 MG TAB PO SCH ×2 (10:37→21:31)
[2021-07-09] MEDS: GABAPENTIN 300 MG CAP PO SCH ×2 (10:38→21:31)
[2021-07-09] MEDS: CARVEDILOL 3.125 MG TAB PO SCH ×2 (10:38→21:32)
[2021-07-09] MEDS ORDERED: POTASSIUM CHL 20 Meq TABLET PO ONE (12:15)
[2021-07-09] MEDS ORDERED: [UNRECOGNIZED DRUG - CODE] IV (14:27)
[2021-07-09] MEDS: HYDROmorphone HCL 2 MG/ML VL IV PRN ×2 (14:30→20:49)
[2021-07-09] MEDS ORDERED: WARFARIN SODIUM 5 MG TAB PO ONE (18:15)
[2021-07-09 20:30] VITALS: BP 116/73
[2021-07-09] MEDS: PRAMIPEXOLE DIHYDROCHLORIDE MO 0.25 MG TAB PO SCH (21:32)
[2021-07-09 22:00] VITALS: BP 116/73
[2021-07-10 05:00] VITALS: BP 112/59
[2021-07-10 05:43] LABS: INR 1.77 (0.9-1.15); Partial Thromboplastin Time 31.6 sec (23.6-33.0)
[2021-07-10] MEDS: InsuLIN REG 1unit/0.01ml Soln (100units/ml) SC SCH ×4 (07:00→22:30)
[2021-07-10] MEDS: HYDROmorphone HCL 2 MG/ML VL IV PRN ×3 (07:04→21:48)
[2021-07-10] MEDS: ACCU-CHEK COMFORT CURVE STRIP VI SCH ×4 (07:04→22:22)
[2021-07-10 09:00] VITALS: BP 103/60
[2021-07-10] MEDS: SEVELAMER 800 MG TAB PO SCH ×3 (10:08→18:54)
[2021-07-10] MEDS: FUROSEMIDE 40 MG TAB PO SCH ×2 (10:10→21:49)
[2021-07-10] MEDS: GABAPENTIN 300 MG CAP PO SCH ×2 (10:10→21:50)
[2021-07-10] MEDS: CARVEDILOL 3.125 MG TAB PO SCH ×2 (10:11→21:48)
[2021-07-10 13:00] VITALS: BP 107/60
[2021-07-10] MEDS ORDERED: PIPERACILLIN-TAZOB 3.375GM 100 ML IV SCH (14:00)
[2021-07-10] MEDS: PIPERACILLIN-TAZOB 2.25GM 50 ML IV SCH ×2 (15:35→21:48)
[2021-07-10 17:00] VITALS: BP 103/52
[2021-07-10] MEDS ORDERED: WARFARIN SODIUM 2.5 MG TAB PO ONE (17:00)
[2021-07-10] MEDS: PRAMIPEXOLE DIHYDROCHLORIDE MO 0.25 MG TAB PO SCH (21:50)
[2021-07-10 22:00] VITALS: BP 100/59
[2021-07-11 05:00] VITALS: BP 112/68
[2021-07-11] MEDS: PIPERACILLIN-TAZOB 2.25GM 50 ML IV SCH ×3 (06:05→22:40)
[2021-07-11 06:35] LABS: INR 1.57 (0.9-1.15)
[2021-07-11] MEDS: InsuLIN REG 1unit/0.01ml Soln (100units/ml) SC SCH ×4 (06:36→22:00)
[2021-07-11] MEDS: ACCU-CHEK COMFORT CURVE STRIP VI SCH ×4 (06:36→22:40)
[2021-07-11 06:44] LABS: Basophils # (auto) 0.1 10 ^3/uL (0-0.2); Basophils % (auto) 0.9 % (0.0-2.0); Eosinophils # (auto) 0.7 10 ^3/uL (0-0.8); Eosinophils % (auto) 9.8 % (0.0-7.0); Hematocrit 24.9 % (36.0-46.0); Lymphocytes % (auto) 14.2 % (10.0-50.0); Mean Corpuscular Hemoglobin 29.7 pg (28.0-32.0); Mean Corpuscular Hgb Conc. 32.1 g/dL (32.0-36.0); Mean Corpuscular Volume 92.3 fL (80.0-100.0); Monocytes # (auto) 0.5 10 ^3/uL (0-1.3); Monocytes % (auto) 7.1 % (0.0-12.0); Neutrophils # (auto) 4.6 10 ^3/uL (1.6-8.6); Red Blood Cells 2.69 10^6/uL (4.0-5.20); White Blood Cell 6.8 10^3/uL (4.4-10.8)
[2021-07-11] MEDS: HYDROmorphone HCL 2 MG/ML VL IV PRN ×2 (07:01→17:34)
[2021-07-11 08:18] LABS: Albumin 2.1 g/dL (3.4-5.0)
[2021-07-11 08:36] VITALS: BP 112/46
[2021-07-11] MEDS: SEVELAMER 800 MG TAB PO SCH ×3 (09:34→17:29)
[2021-07-11] MEDS: GABAPENTIN 300 MG CAP PO SCH ×2 (09:34→22:35)
[2021-07-11] MEDS: CARVEDILOL 3.125 MG TAB PO SCH ×2 (09:35→22:36)
[2021-07-11] MEDS: FUROSEMIDE 40 MG TAB PO SCH ×2 (09:35→22:37)
[2021-07-11] MEDS: HYDROcodone-ACET 10/325MG TAB PO PRN ×2 (12:07→21:04)
[2021-07-11 12:47] VITALS: BP 112/62
[2021-07-11 17:00] VITALS: BP 121/62
[2021-07-11] MEDS ORDERED: WARFARIN SODIUM 2.5 MG TAB PO ONE (17:00)
[2021-07-11 22:00] VITALS: BP 128/75
[2021-07-11] MEDS: PRAMIPEXOLE DIHYDROCHLORIDE MO 0.25 MG TAB PO SCH (22:36)
[2021-07-12] VITALS (7 sets, daily range): BP systolic 98–129; BP diastolic 49–83
[2021-07-12 05:31] LABS: INR 1.87 (0.9-1.15)
[2021-07-12] MEDS: PIPERACILLIN-TAZOB 2.25GM 50 ML IV SCH ×2 (05:40→13:49)
[2021-07-12] MEDS: HYDROmorphone HCL 2 MG/ML VL IV PRN ×2 (05:40→15:32)
[2021-07-12] MEDS: InsuLIN REG 1unit/0.01ml Soln (100units/ml) SC SCH ×4 (06:31→21:36)
[2021-07-12] MEDS: ACCU-CHEK COMFORT CURVE STRIP VI SCH ×4 (06:32→21:36)
[2021-07-12] MEDS ORDERED: SODIUM CHL 0.9% 1000 ML BAG XX ONE (07:00)
[2021-07-12] MEDS: SEVELAMER 800 MG TAB PO SCH ×3 (08:00→18:31)
[2021-07-12] MEDS: HYDROcodone-ACET 10/325MG TAB PO PRN ×2 (09:03→22:00)
[2021-07-12] MEDS: GABAPENTIN 300 MG CAP PO SCH ×2 (09:08→21:59)
[2021-07-12] MEDS: CARVEDILOL 3.125 MG TAB PO SCH ×2 (09:08→22:00)
[2021-07-12] MEDS: FUROSEMIDE 40 MG TAB PO SCH ×2 (09:08→21:59)
[2021-07-12] MEDS ORDERED: WARFARIN SODIUM 2 MG TAB PO ONE (17:00)
[2021-07-12] MEDS: PRAMIPEXOLE DIHYDROCHLORIDE MO 0.25 MG TAB PO SCH (22:16)
[2021-07-13] MEDS: HYDROmorphone HCL 2 MG/ML VL IV PRN (00:43)
[2021-07-13 05:00] VITALS: BP 103/37
[2021-07-13] MEDS: InsuLIN REG 1unit/0.01ml Soln (100units/ml) SC SCH (05:53)
[2021-07-13] MEDS: ACCU-CHEK COMFORT CURVE STRIP VI SCH (05:54)
[2021-07-13 06:48] LABS: INR 2.12 (0.9-1.15); Partial Thromboplastin Time 32.6 sec (23.6-33.0)
[2021-07-13] MEDS: SEVELAMER 800 MG TAB PO SCH (08:53)
[2021-07-13] MEDS: HYDROcodone-ACET 10/325MG TAB PO PRN (08:54)
== END 2021-07-13 10:00 | disposition home health service (06) | DRG 393 ==
LOC: EDBD 17:44 → ER 18:05 → TELE 21:45 → TELE-CENTR 07-09 19:58
PROVIDERS: ADMIT Nurse Practitioner; ATTEND Nurse Practitioner
PROC: 5A1D70Z Performance of Urinary Filtration, Intermittent, Less than 6 Hours Per Day (ICD-10-PCS; principal; 2021-07-12)
DX: K52.1 Toxic gastroenteritis and colitis (principal); N18.6 End stage renal disease; N25.81 Secondary hyperparathyroidism of renal origin; I13.2 Hypertensive heart and chronic kidney disease with heart failure and with stage 5 chronic kidney disease, or end stage renal disease; I50.30 Unspecified diastolic (congestive) heart failure; M86.8X7 Other osteomyelitis, ankle and foot; D68.9 Coagulation defect, unspecified; E44.0 Moderate protein-calorie malnutrition; R55 Syncope and collapse; R56.9 Unspecified convulsions; E11.42 Type 2 diabetes mellitus with diabetic polyneuropathy; G25.81 Restless legs syndrome; C73 Malignant neoplasm of thyroid gland; D63.1 Anemia in chronic kidney disease; E11.51 Type 2 diabetes mellitus with diabetic peripheral angiopathy without gangrene; E11.22 Type 2 diabetes mellitus with diabetic chronic kidney disease; E78.5 Hyperlipidemia, unspecified; J44.9 Chronic obstructive pulmonary disease, unspecified; E11.69 Type 2 diabetes mellitus with other specified complication; Z20.822 Contact with and (suspected) exposure to COVID-19; M89.8X9 Other specified disorders of bone, unspecified site; Z79.01 Long term (current) use of anticoagulants; Z79.2 Long term (current) use of antibiotics; Z79.899 Other long term (current) drug therapy; Z80.41 Family history of malignant neoplasm of ovary; Z80.6 Family history of leukemia; Z82.49 Family history of ischemic heart disease and other diseases of the circulatory system; Z83.3 Family history of diabetes mellitus; Z85.850 Personal history of malignant neoplasm of thyroid; Z86.711 Personal history of pulmonary embolism; Z99.2 Dependence on renal dialysis; Z88.8 Allergy status to other drugs, medicaments and biological substances; Z91.013 Allergy to seafood; Z89.432 Acquired absence of left foot; Z99.81 Dependence on supplemental oxygen; T36.95XA Adverse effect of unspecified systemic antibiotic, initial encounter; Y92.9 Unspecified place or not applicable
CPT/HCPCS: 36415; 70450; 70551; 73590; 80053; 82040; 82565; 82962; 83735; 84484; 85025; 85610; 85730; 87081; 87426; 90935; 93005; 95819; 96372; 96374; G0378; J1642; J1815; J2543

== ENCOUNTER 2021-07-16 11:01 | Inpatient (IN) | payer MEDICARE, MEDICAID ==
[~2021-07-16] VITALS: Ht 157.5 cm; Wt 92.2 kg
[~2021-07-16 11:01] MED LIST changes: -CHOL20007 PO; -INSREG3 SC
[2021-07-16] MEDS ORDERED: PIPERACILLIN-TAZOB 3.375GM 100 ML IV ONE (11:45)
[2021-07-16 11:47] LABS: Basophils # (auto) 0.1 10 ^3/uL (0-0.2); Eosinophils # (auto) 0.7 10 ^3/uL (0-0.8); Eosinophils % (auto) 9.9 % (0.0-7.0); Hematocrit 29.9 % (36.0-46.0); Hemoglobin 9.5 g/dL (12.2-16.2); Lymphocytes # (auto) 0.8 10 ^3/uL (0.4-5.4); Lymphocytes % (auto) 11.6 % (10.0-50.0); Mean Corpuscular Hemoglobin 29.5 pg (28.0-32.0); Mean Corpuscular Hgb Conc. 31.7 g/dL (32.0-36.0); Mean Corpuscular Volume 93.1 fL (80.0-100.0); Monocytes # (auto) 0.4 10 ^3/uL (0-1.3); Monocytes % (auto) 6.3 % (0.0-12.0); Neutrophils # (auto) 4.9 10 ^3/uL (1.6-8.6); Neutrophils % (auto) 71.2 % (37.0-80.0); Red Blood Cells 3.21 10^6/uL (4.0-5.20); Red Cell Distribution Width 18.5 % (11.8-14.3); White Blood Cell 6.9 10^3/uL (4.4-10.8)
[2021-07-16 11:57] LABS: Albumin 2.1 g/dL (3.4-5.0); Calcium 7.8 mg/dL (8.5-10.1); Potassium 3.5 mmol/L (3.5-5.1)
[2021-07-16 12:01] LABS: BUN/Creatinine Ratio 7.4; Bilirubin, Total 0.4 mg/dL (0.2-1.0); Total Protein 6.2 g/dL (6.4-8.2)
[2021-07-16 12:11] LABS: INR 2.02 (0.9-1.15); Partial Thromboplastin Time 30.4 sec (23.6-33.0)
[2021-07-16] MEDS ORDERED: HYDROcodone-ACET 5/325MG TAB PO PRN (16:30)
[2021-07-16] MEDS ORDERED: MORPHINE SULFATE INJECTION 2 MG/ML SYRG IV PRN (16:30)
[2021-07-16] MEDS ORDERED: DOCUSATE SOD 100 MG CAP PO PRN (16:30)
[2021-07-16] MEDS ORDERED: ONDANSETRON HCL 4 MG/2 ML VIAL IV PRN (16:30)
[2021-07-16] MEDS ORDERED: NITROGLYCERIN 0.4 MG SL TAB SL PRN (16:30)
[2021-07-16] MEDS ORDERED: ACETAMINOPHEN 325 MG TAB PO PRN (16:30)
[2021-07-16] MEDS: CARVEDILOL 3.125 MG TAB PO SCH (20:54)
[2021-07-16] MEDS: SEVELAMER 800 MG TAB PO SCH (20:54)
[2021-07-16] MEDS: FUROSEMIDE 40 MG TAB PO SCH (20:54)
[2021-07-16] MEDS: GABAPENTIN 300 MG CAP PO SCH (20:55)
[2021-07-16] MEDS: MORPHINE SULFATE INJECTION 2 MG/ML SYRG IV PRN (20:55)
[2021-07-16] MEDS: ASCORBIC ACID 500 MG TAB PO SCH (20:55)
[2021-07-16 22:00] VITALS: BP 140/90
[2021-07-17] MEDS: HYDROcodone-ACET 10/325MG TAB PO PRN ×3 (04:04→19:57)
[2021-07-17] MEDS: FUROSEMIDE 40 MG TAB PO SCH ×2 (05:29→16:57)
[2021-07-17 06:42] LABS: Basophils # (auto) 0.1 10 ^3/uL (0-0.2); Basophils % (auto) 1.1 % (0.0-2.0); Eosinophils # (auto) 0.7 10 ^3/uL (0-0.8); Eosinophils % (auto) 10.4 % (0.0-7.0); Hematocrit 27.6 % (36.0-46.0); Hemoglobin 8.8 g/dL (12.2-16.2); Lymphocytes % (auto) 14.4 % (10.0-50.0); Mean Corpuscular Hemoglobin 29.8 pg (28.0-32.0); Mean Corpuscular Volume 93.1 fL (80.0-100.0); Monocytes # (auto) 0.6 10 ^3/uL (0-1.3); Monocytes % (auto) 8.3 % (0.0-12.0); Neutrophils # (auto) 4.6 10 ^3/uL (1.6-8.6); Neutrophils % (auto) 65.8 % (37.0-80.0); Nucleated Red Blood Cells % 0.1 %; Red Blood Cells 2.97 10^6/uL (4.0-5.20); Red Cell Distribution Width 19.2 % (11.8-14.3)
[2021-07-17 06:50] LABS: Calcium 7.8 mg/dL (8.5-10.1); Potassium 3.6 mmol/L (3.5-5.1)
[2021-07-17 06:54] LABS: BUN/Creatinine Ratio 7.8; Bilirubin, Total 0.4 mg/dL (0.2-1.0)
[2021-07-17] MEDS: SEVELAMER 800 MG TAB PO SCH ×3 (08:00→16:57)
[2021-07-17] MEDS ORDERED: ceFAZolin 1GM/50ML 100 ML IV ONE (08:32)
[2021-07-17] MEDS ORDERED: PROPOFOL 10 MG/ML 20 ML IV ONE (08:42)
[2021-07-17] MEDS ORDERED: SODIUM CHLORIDE LOCK 10 ML ONE (08:42)
[2021-07-17] MEDS ORDERED: MIDAZOLAM HCL 2MG/2ML 2ml VIAL (1mg/ml) ONE (08:42)
[2021-07-17] MEDS ORDERED: ONDANSETRON HCL 4 MG/2 ML VIAL ONE (08:42)
[2021-07-17] MEDS ORDERED: fentaNYL CITRATE 100 MCG/2 ML VL ONE (08:42)
[2021-07-17] MEDS ORDERED: ceFAZolin 1GM VL ONE (08:45)
[2021-07-17] MEDS ORDERED: ONDANSETRON HCL 4 MG/2 ML VIAL IV PRN (09:45)
[2021-07-17] MEDS ORDERED: ACCU-CHEK COMFORT CURVE STRIP VI ONE (09:45)
[2021-07-17] MEDS ORDERED: MORPHINE SULFATE 4 MG/ML SYR/VIAL IV PRN (09:45)
[2021-07-17] MEDS ORDERED: HYDROmorphone HCL 2 MG/ML VL IV PRN (09:45)
[2021-07-17 09:51] VITALS: BP 104/56
[2021-07-17] MEDS ORDERED: MEPERIDINE HCL (25 MG/ML) 1ML VIAL ONE (10:04)
[2021-07-17] MEDS: ASCORBIC ACID 500 MG TAB PO SCH ×2 (10:54→22:34)
[2021-07-17] MEDS: GABAPENTIN 300 MG CAP PO SCH ×2 (10:54→22:35)
[2021-07-17] MEDS: MULTIPLE VITAMIN TAB PO SCH (10:54)
[2021-07-17] MEDS: ZINC SULFATE 220mg CAP or TAB PO SCH (10:54)
[2021-07-17] MEDS: CARVEDILOL 3.125 MG TAB PO SCH ×2 (10:55→22:36)
[2021-07-17 13:00] VITALS: BP 102/44
[2021-07-17] MEDS: MORPHINE SULFATE INJECTION 2 MG/ML SYRG IV PRN ×3 (13:03→22:46)
[2021-07-17 17:13] VITALS: BP 99/59
[2021-07-17 22:00] VITALS: BP 118/68
[2021-07-18 05:00] VITALS: BP 129/60
[2021-07-18] MEDS: FUROSEMIDE 40 MG TAB PO SCH ×2 (06:00→16:52)
[2021-07-18] MEDS ORDERED: SODIUM CHL 0.9% 1000 ML BAG XX ONE (07:00)
[2021-07-18] MEDS: SEVELAMER 800 MG TAB PO SCH ×3 (08:30→16:51)
[2021-07-18] MEDS: ZINC SULFATE 220mg CAP or TAB PO SCH (08:30)
[2021-07-18] MEDS: MULTIPLE VITAMIN TAB PO SCH (08:31)
[2021-07-18] MEDS: ASCORBIC ACID 500 MG TAB PO SCH ×2 (08:31→22:07)
[2021-07-18] MEDS: GABAPENTIN 300 MG CAP PO SCH ×2 (08:31→22:07)
[2021-07-18] MEDS: MORPHINE SULFATE INJECTION 2 MG/ML SYRG IV PRN ×2 (08:32→16:31)
[2021-07-18 09:08] VITALS: BP 98/57
[2021-07-18 09:11] LABS: Hematocrit 28.8 % (36.0-46.0); Hemoglobin 9.5 g/dL (12.2-16.2)
[2021-07-18] MEDS: CARVEDILOL 3.125 MG TAB PO SCH ×2 (10:00→22:00)
[2021-07-18] MEDS: HYDROcodone-ACET 10/325MG TAB PO PRN ×2 (11:29→22:07)
[2021-07-18 13:00] VITALS: BP 112/62
[2021-07-18 17:03] VITALS: BP 101/63
[2021-07-18] MEDS ORDERED: EPOETIN ALFA-EPBX 10,000 UNIT/1ML VIAL SC ONE (21:00)
[2021-07-18 22:00] VITALS: BP 100/76
[2021-07-19] MEDS: MORPHINE SULFATE INJECTION 2 MG/ML SYRG IV PRN ×2 (03:38→20:48)
[2021-07-19 05:00] VITALS: BP 86/57
[2021-07-19] MEDS: FUROSEMIDE 40 MG TAB PO SCH ×2 (06:00→18:00)
[2021-07-19 06:59] LABS: Basophils # (auto) 0.1 10 ^3/uL (0-0.2); Lymphocytes # (auto) 1.2 10 ^3/uL (0.4-5.4); Monocytes # (auto) 0.6 10 ^3/uL (0-1.3); Red Blood Cells 2.63 10^6/uL (4.0-5.20)
[2021-07-19 07:02] LABS: Basophils % (auto) 0.8 % (0.0-2.0); Eosinophils # (auto) 0.7 10 ^3/uL (0-0.8); Eosinophils % (auto) 10.9 % (0.0-7.0); Hematocrit 24.7 % (36.0-46.0); Lymphocytes % (auto) 17.4 % (10.0-50.0); Mean Corpuscular Hemoglobin 30.3 pg (28.0-32.0); Mean Corpuscular Hgb Conc. 32.3 g/dL (32.0-36.0); Mean Corpuscular Volume 93.7 fL (80.0-100.0); Monocytes % (auto) 9.2 % (0.0-12.0); Neutrophils # (auto) 4.2 10 ^3/uL (1.6-8.6); Neutrophils % (auto) 61.7 % (37.0-80.0); Red Cell Distribution Width 18.8 % (11.8-14.3); White Blood Cell 6.8 10^3/uL (4.4-10.8)
[2021-07-19 07:25] LABS: Albumin 1.8 g/dL (3.4-5.0); Anion Gap 16 (5-15); Blood Urea Nitrogen 51 mg/dL (7-18); Calcium 7.7 mg/dL (8.5-10.1); Carbon Dioxide 23 mmol/L (21-32); Chloride 102 mmol/L (98-107); Glucose 134 mg/dL (74-106); Potassium 4.1 mmol/L (3.5-5.1); Sodium 141 mmol/L (136-145)
[2021-07-19 07:27] LABS: Alanine Aminotransferase < 6 U/L (13-56); Aspartate Aminotransferase 11 U/L (15-37); BUN/Creatinine Ratio 7.7; GFR African American 9 mL/min; GFR Non-African American 7 mL/min
[2021-07-19 07:30] LABS: Alkaline Phosphatase 80 U/L (45-117); Bilirubin, Total 0.3 mg/dL (0.2-1.0); Phosphorus 6.7 mg/dL (2.5-4.90); Total Protein 5.7 g/dL (6.4-8.2)
[2021-07-19] MEDS: SEVELAMER 800 MG TAB PO SCH ×4 (08:00→18:00)
[2021-07-19 09:20] VITALS: BP 107/45
[2021-07-19] MEDS: ZINC SULFATE 220mg CAP or TAB PO SCH (09:41)
[2021-07-19] MEDS: CARVEDILOL 3.125 MG TAB PO SCH ×2 (09:41→21:19)
[2021-07-19] MEDS: GABAPENTIN 300 MG CAP PO SCH ×2 (09:41→21:21)
[2021-07-19] MEDS: MULTIPLE VITAMIN TAB PO SCH (09:42)
[2021-07-19] MEDS: HYDROcodone-ACET 10/325MG TAB PO PRN ×3 (09:42→22:47)
[2021-07-19] MEDS: ASCORBIC ACID 500 MG TAB PO SCH ×2 (09:42→21:21)
[2021-07-19 13:00] VITALS: BP 101/39
[2021-07-19 17:00] VITALS: BP 105/36
[2021-07-19 22:00] VITALS: BP 119/89
[2021-07-20] MEDS: HYDROcodone-ACET 10/325MG TAB PO PRN ×3 (04:56→18:59)
[2021-07-20 05:14] VITALS: BP 117/54
[2021-07-20] MEDS: FUROSEMIDE 40 MG TAB PO SCH ×2 (06:28→17:38)
[2021-07-20] MEDS: SEVELAMER 800 MG TAB PO SCH ×3 (08:00→17:38)
[2021-07-20 09:00] VITALS: BP 119/75
[2021-07-20] MEDS: GABAPENTIN 300 MG CAP PO SCH ×2 (09:55→21:24)
[2021-07-20] MEDS: ASCORBIC ACID 500 MG TAB PO SCH ×2 (09:55→21:24)
[2021-07-20] MEDS: MULTIPLE VITAMIN TAB PO SCH (09:55)
[2021-07-20] MEDS: ZINC SULFATE 220mg CAP or TAB PO SCH (09:55)
[2021-07-20] MEDS: CARVEDILOL 3.125 MG TAB PO SCH ×2 (09:56→22:00)
[2021-07-20 13:00] VITALS: BP 97/42
[2021-07-20 17:00] VITALS: BP 86/71
[2021-07-20] MEDS ORDERED: WARFARIN SODIUM 5 MG TAB PO ONE (17:00)
[2021-07-20 22:07] VITALS: BP 120/99
[2021-07-20] MEDS: MORPHINE SULFATE INJECTION 2 MG/ML SYRG IV PRN (22:14)
[2021-07-21] MEDS: HYDROcodone-ACET 10/325MG TAB PO PRN ×4 (04:19→23:03)
[2021-07-21 05:00] VITALS: BP 133/59
[2021-07-21] MEDS: FUROSEMIDE 40 MG TAB PO SCH ×2 (05:34→17:39)
[2021-07-21 07:52] LABS: INR 1.24 (0.9-1.15)
[2021-07-21 07:56] LABS: Basophils # (auto) 0.1 10 ^3/uL (0-0.2); Mean Corpuscular Hemoglobin 29.6 pg (28.0-32.0); Mean Corpuscular Hgb Conc. 31.6 g/dL (32.0-36.0); Monocytes # (auto) 0.6 10 ^3/uL (0-1.3); Nucleated Red Blood Cells % 0.1 %; Red Blood Cells 2.82 10^6/uL (4.0-5.20)
[2021-07-21 07:58] LABS: Basophils % (auto) 0.7 % (0.0-2.0); Eosinophils # (auto) 0.9 10 ^3/uL (0-0.8); Eosinophils % (auto) 10.9 % (0.0-7.0); Hematocrit 26.3 % (36.0-46.0); Hemoglobin 8.3 g/dL (12.2-16.2); Lymphocytes # (auto) 1.1 10 ^3/uL (0.4-5.4); Lymphocytes % (auto) 14.2 % (10.0-50.0); Mean Corpuscular Volume 93.4 fL (80.0-100.0); Monocytes % (auto) 7.1 % (0.0-12.0); Neutrophils # (auto) 5.3 10 ^3/uL (1.6-8.6); Neutrophils % (auto) 67.1 % (37.0-80.0); Red Cell Distribution Width 18.2 % (11.8-14.3); White Blood Cell 7.8 10^3/uL (4.4-10.8)
[2021-07-21] MEDS: SEVELAMER 800 MG TAB PO SCH ×3 (08:00→17:39)
[2021-07-21 08:45] VITALS: BP 113/48
[2021-07-21] MEDS: CARVEDILOL 3.125 MG TAB PO SCH ×2 (10:16→21:56)
[2021-07-21] MEDS: GABAPENTIN 300 MG CAP PO SCH ×2 (10:16→21:56)
[2021-07-21] MEDS: ZINC SULFATE 220mg CAP or TAB PO SCH (10:16)
[2021-07-21] MEDS: MULTIPLE VITAMIN TAB PO SCH (10:16)
[2021-07-21] MEDS: ASCORBIC ACID 500 MG TAB PO SCH ×2 (10:17→21:56)
[2021-07-21 13:00] VITALS: BP 146/78
[2021-07-21 16:31] VITALS: BP 101/74
[2021-07-21] MEDS ORDERED: WARFARIN SODIUM 2 MG TAB PO ONE (17:00)
[2021-07-21 22:00] VITALS: BP 104/64
[2021-07-22 05:00] VITALS: BP 126/84
[2021-07-22] MEDS: FUROSEMIDE 40 MG TAB PO SCH ×2 (05:17→17:32)
[2021-07-22 06:06] LABS: Basophils # (auto) 0.1 10 ^3/uL (0-0.2); Eosinophils # (auto) 0.8 10 ^3/uL (0-0.8); Eosinophils % (auto) 8.6 % (0.0-7.0); Neutrophils # (auto) 6.6 10 ^3/uL (1.6-8.6); White Blood Cell 9.4 10^3/uL (4.4-10.8)
[2021-07-22 06:09] LABS: Basophils % (auto) 0.6 % (0.0-2.0); Hematocrit 24.6 % (36.0-46.0); Hemoglobin 7.8 g/dL (12.2-16.2); Lymphocytes # (auto) 1.3 10 ^3/uL (0.4-5.4); Lymphocytes % (auto) 13.4 % (10.0-50.0); Mean Corpuscular Hemoglobin 30.2 pg (28.0-32.0); Mean Corpuscular Hgb Conc. 31.9 g/dL (32.0-36.0); Mean Corpuscular Volume 94.6 fL (80.0-100.0); Monocytes # (auto) 0.7 10 ^3/uL (0-1.3); Monocytes % (auto) 7.1 % (0.0-12.0); Neutrophils % (auto) 70.3 % (37.0-80.0); Red Cell Distribution Width 18.2 % (11.8-14.3)
[2021-07-22 06:16] LABS: INR 1.32 (0.9-1.15); Partial Thromboplastin Time 28.8 sec (23.6-33.0)
[2021-07-22 06:19] LABS: Potassium 4.7 mmol/L (3.5-5.1)
[2021-07-22 06:29] LABS: BUN/Creatinine Ratio 8.6; Bilirubin, Total 0.4 mg/dL (0.2-1.0); Total Protein 6.2 g/dL (6.4-8.2)
[2021-07-22] MEDS ORDERED: SODIUM CHL 0.9% 1000 ML BAG XX ONE (07:00)
[2021-07-22] MEDS: MULTIPLE VITAMIN TAB PO SCH (09:08)
[2021-07-22] MEDS: ZINC SULFATE 220mg CAP or TAB PO SCH (09:08)
[2021-07-22] MEDS: GABAPENTIN 300 MG CAP PO SCH ×2 (09:08→21:32)
[2021-07-22] MEDS: SEVELAMER 800 MG TAB PO SCH ×3 (09:08→17:32)
[2021-07-22] MEDS: ASCORBIC ACID 500 MG TAB PO SCH ×2 (09:08→21:32)
[2021-07-22] MEDS: HYDROcodone-ACET 10/325MG TAB PO PRN ×2 (09:09→17:40)
[2021-07-22 09:21] VITALS: BP 89/60
[2021-07-22] MEDS: CARVEDILOL 3.125 MG TAB PO SCH ×2 (10:00→21:32)
[2021-07-22 12:38] VITALS: BP 111/51
[2021-07-22 16:43] VITALS: BP 104/78
[2021-07-22] MEDS ORDERED: WARFARIN SODIUM 2 MG TAB PO ONE (17:00)
[2021-07-22] MEDS ORDERED: WARFARIN SODIUM 5 MG TAB PO ONE (17:00)
[2021-07-22] MEDS ORDERED: EPOETIN ALFA-EPBX 10,000 UNIT/1ML VIAL SC ONE (21:00)
[2021-07-22 22:12] VITALS: BP 109/38
[2021-07-23] MEDS: MORPHINE SULFATE INJECTION 2 MG/ML SYRG IV PRN (00:53)
[2021-07-23] MEDS: HYDROcodone-ACET 10/325MG TAB PO PRN ×2 (00:56→07:01)
[2021-07-23 05:00] VITALS: BP 84/35
[2021-07-23] MEDS: FUROSEMIDE 40 MG TAB PO SCH (05:07)
[2021-07-23 06:20] LABS: Basophils # (auto) 0.1 10 ^3/uL (0-0.2); Monocytes # (auto) 0.7 10 ^3/uL (0-1.3)
[2021-07-23 06:23] LABS: Basophils % (auto) 0.7 % (0.0-2.0); Eosinophils # (auto) 0.7 10 ^3/uL (0-0.8); Eosinophils % (auto) 8.8 % (0.0-7.0); Hematocrit 25.8 % (36.0-46.0); Hemoglobin 8.3 g/dL (12.2-16.2); Lymphocytes # (auto) 1.4 10 ^3/uL (0.4-5.4); Lymphocytes % (auto) 16.3 % (10.0-50.0); Mean Corpuscular Hemoglobin 30.3 pg (28.0-32.0); Mean Corpuscular Hgb Conc. 32.2 g/dL (32.0-36.0); Mean Corpuscular Volume 94.2 fL (80.0-100.0); Neutrophils # (auto) 5.6 10 ^3/uL (1.6-8.6); Neutrophils % (auto) 66.2 % (37.0-80.0); Red Blood Cells 2.74 10^6/uL (4.0-5.20); Red Cell Distribution Width 17.9 % (11.8-14.3); White Blood Cell 8.4 10^3/uL (4.4-10.8)
[2021-07-23 06:30] LABS: INR 1.46 (0.9-1.15)
[2021-07-23 06:38] LABS: Chloride 103 mmol/L (98-107); Potassium 4.1 mmol/L (3.5-5.1); Sodium 140 mmol/L (136-145)
[2021-07-23 06:44] LABS: Alanine Aminotransferase < 6 U/L (13-56); Albumin 2.2 g/dL (3.4-5.0); Alkaline Phosphatase 107 U/L (45-117); Anion Gap 11 (5-15); Aspartate Aminotransferase 13 U/L (15-37); BUN/Creatinine Ratio 8.2; Bilirubin, Total 0.3 mg/dL (0.2-1.0); Blood Urea Nitrogen 40 mg/dL (7-18); Calcium 8.2 mg/dL (8.5-10.1); Carbon Dioxide 26 mmol/L (21-32); GFR African American 12 mL/min; GFR Non-African American 10 mL/min; Glucose 133 mg/dL (74-106); Total Protein 6.6 g/dL (6.4-8.2)
[2021-07-23 09:29] VITALS: BP 123/61
[2021-07-23] MEDS: CARVEDILOL 3.125 MG TAB PO SCH (10:00)
[2021-07-23] MEDS: SEVELAMER 800 MG TAB PO SCH ×2 (10:32→11:39)
[2021-07-23] MEDS: ASCORBIC ACID 500 MG TAB PO SCH (10:32)
[2021-07-23] MEDS: GABAPENTIN 300 MG CAP PO SCH (10:33)
[2021-07-23] MEDS: ZINC SULFATE 220mg CAP or TAB PO SCH (10:33)
[2021-07-23] MEDS: MULTIPLE VITAMIN TAB PO SCH (10:33)
[2021-07-23 12:39] VITALS: BP 125/60
[2021-07-23] MEDS ORDERED: WARFARIN SODIUM 1 MG TAB PO ONE (17:00)
== END 2021-07-23 16:00 | disposition home health service (06) | DRG 463 ==
LOC: ER 11:01 → TELE 16:30 → TELE-WESTW 21:15
PROVIDERS: ADMIT Nurse Practitioner; ATTEND Nurse Practitioner
PROC: 0HRNXK4 Replacement of Left Foot Skin with Nonautologous Tissue Substitute, Partial Thickness, External Approach (ICD-10-PCS; 2021-07-17)
PROC: 0JBR0ZZ Excision of Left Foot Subcutaneous Tissue and Fascia, Open Approach (ICD-10-PCS; principal; 2021-07-17 08:51)
PROC: 5A1D70Z Performance of Urinary Filtration, Intermittent, Less than 6 Hours Per Day (ICD-10-PCS; 2021-07-19)
PROC: 5A1D70Z Performance of Urinary Filtration, Intermittent, Less than 6 Hours Per Day (ICD-10-PCS; 2021-07-22)
DX: T87.54 Necrosis of amputation stump, left lower extremity (principal); N18.6 End stage renal disease; E11.52 Type 2 diabetes mellitus with diabetic peripheral angiopathy with gangrene; I13.2 Hypertensive heart and chronic kidney disease with heart failure and with stage 5 chronic kidney disease, or end stage renal disease; M86.8X7 Other osteomyelitis, ankle and foot; L97.429 Non-pressure chronic ulcer of left heel and midfoot with unspecified severity; D68.9 Coagulation defect, unspecified; E44.0 Moderate protein-calorie malnutrition; E11.69 Type 2 diabetes mellitus with other specified complication; E11.621 Type 2 diabetes mellitus with foot ulcer; Z99.2 Dependence on renal dialysis; D63.1 Anemia in chronic kidney disease; E21.2 Other hyperparathyroidism; E11.22 Type 2 diabetes mellitus with diabetic chronic kidney disease; Z20.822 Contact with and (suspected) exposure to COVID-19; C80.1 Malignant (primary) neoplasm, unspecified; I50.9 Heart failure, unspecified; J44.9 Chronic obstructive pulmonary disease, unspecified; Z79.4 Long term (current) use of insulin; Z80.41 Family history of malignant neoplasm of ovary; Z80.6 Family history of leukemia; Z82.49 Family history of ischemic heart disease and other diseases of the circulatory system; Z83.3 Family history of diabetes mellitus; Z79.01 Long term (current) use of anticoagulants; Z88.8 Allergy status to other drugs, medicaments and biological substances; Z91.013 Allergy to seafood
CPT/HCPCS: 36415; 71045; 80053; 83605; 84100; 85014; 85018; 85025; 85610; 85730; 87040; 87070; 87075; 87077; 87081; 87205; 87426; 90935; 93005; 97163; G0378; J0690; J2250; J2405; J2543; J2704

== ENCOUNTER 2021-07-27 15:57 | Inpatient (IN) | payer MEDICARE, MEDICAID ==
[~2021-07-27] VITALS: Ht 157.5 cm; Wt 91.5 kg
[~2021-07-27 15:57] MED LIST changes: -SEVE800T8 PO
[2021-07-27] MEDS ORDERED: SODIUM CHLORIDE 0.9% 1,000 ML IV ONE (16:45)
[2021-07-27] MEDS ORDERED: SODIUM CHLORIDE 0.9% 500 ML IVB ONE (16:45)
[2021-07-27 17:27] LABS: Basophils # (auto) 0.1 10 ^3/uL (0-0.2); Eosinophils # (auto) 0.1 10 ^3/uL (0-0.8); Eosinophils % (auto) 0.7 % (0.0-7.0); Hemoglobin 8.6 g/dL (12.2-16.2); Lymphocytes # (auto) 0.6 10 ^3/uL (0.4-5.4); Lymphocytes % (auto) 8.3 % (10.0-50.0); Mean Corpuscular Hgb Conc. 31.9 g/dL (32.0-36.0); Monocytes # (auto) 0.3 10 ^3/uL (0-1.3); Monocytes % (auto) 3.8 % (0.0-12.0); Neutrophils # (auto) 6.4 10 ^3/uL (1.6-8.6); Neutrophils % (auto) 86.2 % (37.0-80.0); Red Blood Cells 2.87 10^6/uL (4.0-5.20); White Blood Cell 7.4 10^3/uL (4.4-10.8)
[2021-07-27 17:43] LABS: Albumin 2.2 g/dL (3.4-5.0); Anion Gap 12 (5-15); Blood Alcohol < 3.0 mg/dL (0-5); Blood Urea Nitrogen 45 mg/dL (7-18); Calcium 8.1 mg/dL (8.5-10.1); Carbon Dioxide 24 mmol/L (21-32); Chloride 102 mmol/L (98-107); GFR African American 10 mL/min; GFR Non-African American 9 mL/min; Glucose 167 mg/dL (74-106); Magnesium 2.2 mg/dL (1.6-2.6); Potassium 5.4 mmol/L (3.5-5.1); Sodium 138 mmol/L (136-145)
[2021-07-27 17:47] LABS: Lactic Acid w/Reflex 2.6 mmol/L (0.4-2.0)
[2021-07-27 17:49] LABS: Alanine Aminotransferase 11 U/L (13-56); Alkaline Phosphatase 99 U/L (45-117); Aspartate Aminotransferase 33 U/L (15-37); Bilirubin, Total 0.4 mg/dL (0.2-1.0); Total Protein 6.5 g/dL (6.4-8.2)
[2021-07-27 17:50] LABS: INR 1.81 (0.9-1.15); Partial Thromboplastin Time 27.3 sec (23.6-33.0)
[2021-07-27] MEDS ORDERED: cefTRIAXone 1GM/50ML D5W 50 ML IV ONE (18:30)
[2021-07-27] MEDS ORDERED: NITROGLYCERIN 0.4 MG SL TAB SL PRN (18:45)
[2021-07-27] MEDS ORDERED: MORPHINE SULFATE INJECTION 2 MG/ML SYRG IV PRN (18:45)
[2021-07-27 18:53] LABS: Urine Bacteria FEW /hpf (None Seen); Urine Blood 1+ /uL (Negative); Urine Specific Gravity 1.019 (1.001-1.035); Urine WBC 1522 /hpf (0 - 5); Urine WBC Clumps PRESENT /hpf (None Seen)
[2021-07-27 19:04] LABS: Amphetamine Screen, Urine NEGATIVE (NEGATIVE); Barbiturate Scree,Urine NEGATIVE (NEGATIVE); Benzodiazephine Screen, Urine POSITIVE (NEGATIVE); Cannabinoid Screen, Urine NEGATIVE (NEGATIVE); Cocaine Screen, Urine NEGATIVE (NEGATIVE); Opiate Scree,Urine POSITIVE (NEGATIVE); Phencyclidine Screen, Urine NEGATIVE (NEGATIVE)
[2021-07-28] MEDS ORDERED: INSULIN LISPRO (HUMAN) 100 UNITS/ML ML SC SCH (07:00)
[2021-07-28] MEDS ORDERED: ASPirin 81 mg TAB PO SCH (10:00)
[2021-07-28 10:06] LABS: Basophils # (auto) 0.1 10 ^3/uL (0-0.2); Eosinophils # (auto) 0.1 10 ^3/uL (0-0.8); Hematocrit 26.3 % (36.0-46.0); Monocytes # (auto) 0.6 10 ^3/uL (0-1.3); Neutrophils # (auto) 5.2 10 ^3/uL (1.6-8.6); Nucleated Red Blood Cells % 0.1 %
[2021-07-28 10:07] LABS: Eosinophils % (auto) 1.8 % (0.0-7.0); Hemoglobin 8.4 g/dL (12.2-16.2); Lymphocytes # (auto) 1.3 10 ^3/uL (0.4-5.4); Lymphocytes % (auto) 17.3 % (10.0-50.0); Mean Corpuscular Hemoglobin 30.2 pg (28.0-32.0); Mean Corpuscular Hgb Conc. 31.8 g/dL (32.0-36.0); Mean Corpuscular Volume 95.1 fL (80.0-100.0); Monocytes % (auto) 8.4 % (0.0-12.0); Neutrophils % (auto) 71.5 % (37.0-80.0); Red Blood Cells 2.77 10^6/uL (4.0-5.20); Red Cell Distribution Width 18.6 % (11.8-14.3); White Blood Cell 7.3 10^3/uL (4.4-10.8)
[2021-07-28 10:45] LABS: Albumin 2.1 g/dL (3.4-5.0); Calcium 8.2 mg/dL (8.5-10.1); Potassium 5.4 mmol/L (3.5-5.1)
[2021-07-28 10:49] LABS: BUN/Creatinine Ratio 8.8; Bilirubin, Total 0.3 mg/dL (0.2-1.0); Total Protein 6.1 g/dL (6.4-8.2)
[2021-07-28] MEDS ORDERED: DEXTROSE (50%) 50ML SYRG IV PRN (11:00)
[2021-07-28] MEDS: ACCU-CHEK COMFORT CURVE STRIP VI SCH ×3 (11:29→21:58)
[2021-07-28] MEDS: InsuLIN REG 1unit/0.01ml Soln (100units/ml) SC SCH ×3 (11:41→21:58)
[2021-07-28] MEDS ORDERED: PIPERACILLIN-TAZOB 3.375GM 100 ML IV SCH (14:00)
[2021-07-28] MEDS: PIPERACILLIN-TAZOB 2.25GM 50 ML IV SCH ×2 (14:15→21:59)
[2021-07-28] MEDS ORDERED: ASPI-543 PO (16:42)
[2021-07-28 17:00] VITALS: BP 111/76
[2021-07-28] MEDS: FUROSEMIDE 40 MG TAB PO SCH (18:07)
[2021-07-28] MEDS: HYDROcodone-ACET 10/325MG TAB PO PRN (18:08)
[2021-07-28] MEDS ORDERED: PATIENTS OWN MEDICATION (Furosemide (Lasix) 1 TAB) PO SCH (22:00)
[2021-07-28] MEDS: GABAPENTIN 300 MG CAP PO SCH (22:00)
[2021-07-28] MEDS: CARVEDILOL 3.125 MG TAB PO SCH (22:00)
[2021-07-28] MEDS: HEPARIN SODIUM (PORCINE) 5000 UNITS/ML 1ML VIAL SC SCH (22:04)
[2021-07-28] MEDS: AMITRIPTYLINE HCL 10 MG TAB PO SCH (22:12)
[2021-07-29 05:00] VITALS: BP 96/50
[2021-07-29] MEDS: PIPERACILLIN-TAZOB 2.25GM 50 ML IV SCH ×3 (05:59→21:34)
[2021-07-29] MEDS: InsuLIN REG 1unit/0.01ml Soln (100units/ml) SC SCH ×4 (06:51→21:48)
[2021-07-29] MEDS: ACCU-CHEK COMFORT CURVE STRIP VI SCH ×4 (06:52→21:50)
[2021-07-29 07:12] LABS: BUN/Creatinine Ratio 9.2; Bilirubin, Total 0.4 mg/dL (0.2-1.0); Total Protein 6.1 g/dL (6.4-8.2)
[2021-07-29 07:35] LABS: Potassium 6.1 mmol/L (3.5-5.1)
[2021-07-29 08:00] VITALS: BP 92/51
[2021-07-29] MEDS: CARVEDILOL 3.125 MG TAB PO SCH ×2 (08:59→21:49)
[2021-07-29 09:01] LABS: Basophils # (auto) 0.1 10 ^3/uL (0-0.2); Basophils % (auto) 0.8 % (0.0-2.0); Eosinophils # (auto) 0.3 10 ^3/uL (0-0.8); Eosinophils % (auto) 3.4 % (0.0-7.0); Monocytes # (auto) 0.6 10 ^3/uL (0-1.3); Nucleated Red Blood Cells % 0.1 %
[2021-07-29 09:07] LABS: Hematocrit 25.5 % (36.0-46.0); Hemoglobin 8.1 g/dL (12.2-16.2); Lymphocytes # (auto) 1.3 10 ^3/uL (0.4-5.4); Lymphocytes % (auto) 13.6 % (10.0-50.0); Mean Corpuscular Hemoglobin 30.3 pg (28.0-32.0); Mean Corpuscular Hgb Conc. 31.6 g/dL (32.0-36.0); Mean Corpuscular Volume 95.7 fL (80.0-100.0); Neutrophils # (auto) 7.1 10 ^3/uL (1.6-8.6); Neutrophils % (auto) 76.2 % (37.0-80.0); Red Blood Cells 2.66 10^6/uL (4.0-5.20); White Blood Cell 9.3 10^3/uL (4.4-10.8)
[2021-07-29] MEDS: GABAPENTIN 300 MG CAP PO SCH ×2 (10:00→21:34)
[2021-07-29] MEDS: ASCORBIC ACID 500 MG TAB PO SCH (10:00)
[2021-07-29 12:00] VITALS: BP 98/46
[2021-07-29] MEDS: HYDROcodone-ACET 10/325MG TAB PO PRN (13:00)
[2021-07-29] MEDS: HEPARIN SODIUM (PORCINE) 5000 UNITS/ML 1ML VIAL SC SCH ×2 (13:00→21:36)
[2021-07-29] MEDS: FUROSEMIDE 40 MG TAB PO SCH (15:59)
[2021-07-29 16:00] VITALS: BP 83/50
[2021-07-29] MEDS ORDERED: SODIUM ZIRCONIUM CYCL 10 GM PAK PO ONE (17:30)
[2021-07-29] MEDS ORDERED: CALCIUM GLUC 1,000mg/50ml-NS 50 ML IV ONE (17:30)
[2021-07-29] MEDS ORDERED: ALBUTEROL SULF 2.5 MG/0.5ML(0.5%) NEB SOLN NEB ONE (17:30)
[2021-07-29] MEDS ORDERED: DEXTROSE (50%) 50ML SYRG IV ONE (17:30)
[2021-07-29] MEDS ORDERED: InsuLIN REG 1unit/0.01ml Soln (100units/ml) IV ONE (17:30)
[2021-07-29] MEDS ORDERED: SODIUM BICARBONATE 8.4% INJ 50ML SYRINGE IV ONE (17:30)
[2021-07-29] MEDS: AMITRIPTYLINE HCL 10 MG TAB PO SCH (21:34)
[2021-07-29 22:00] VITALS: BP 99/52
[2021-07-30] VITALS (16 sets, daily range): BP systolic 86–145; BP diastolic 40–115
[2021-07-30 05:47] LABS: Hemoglobin 8.2 g/dL (12.2-16.2); Mean Corpuscular Hemoglobin 30.6 pg (28.0-32.0)
[2021-07-30 05:52] LABS: Hematocrit 25.6 % (36.0-46.0); Mean Corpuscular Hgb Conc. 31.9 g/dL (32.0-36.0); Red Blood Cells 2.66 10^6/uL (4.0-5.20); Red Cell Distribution Width 18.5 % (11.8-14.3); White Blood Cell 13.9 10^3/uL (4.4-10.8)
[2021-07-30] MEDS: FUROSEMIDE 40 MG TAB PO SCH ×2 (06:00→17:51)
[2021-07-30] MEDS: PIPERACILLIN-TAZOB 2.25GM 50 ML IV SCH ×3 (06:04→21:46)
[2021-07-30] MEDS: InsuLIN REG 1unit/0.01ml Soln (100units/ml) SC SCH ×4 (06:05→21:47)
[2021-07-30] MEDS: ACCU-CHEK COMFORT CURVE STRIP VI SCH ×4 (06:05→21:47)
[2021-07-30 06:07] LABS: Basophils % (manual) 0 (0.0-2.0); Blast Cells 0; Metamyelocytes % 0; Myelocytes % 0; Promyelocytes % 0; Reactive Lymphocytes 0
[2021-07-30 06:09] LABS: Calcium 7.8 mg/dL (8.5-10.1)
[2021-07-30 06:12] LABS: BUN/Creatinine Ratio 9.7; Bilirubin, Total 0.5 mg/dL (0.2-1.0); Total Protein 6.4 g/dL (6.4-8.2)
[2021-07-30 06:31] LABS: Potassium 5.9 mmol/L (3.5-5.1)
[2021-07-30] MEDS ORDERED: SODIUM CHL 0.9% 1000 ML BAG XX ONE (07:00)
[2021-07-30] MEDS ORDERED: CATHFLO ACTIVASE (ALTEPLASE) 2 MG VIAL IV ONE (08:00)
[2021-07-30 08:53] LABS: Band Neutrophils % (manual) 7; Eosinophils % (manual) 5 (0-7); Lymphocytes % (manual) 21 (10.0-50.0); Monocytes % (manual) 8 (0-12)
[2021-07-30] MEDS ORDERED: diphenhdrAMINE HCL 50 MG/1 ML VL IV ONE (09:00)
[2021-07-30] MEDS ORDERED: LIDOCAINE VISCOUS 2% 15ML UD MT ONE (09:00)
[2021-07-30] MEDS ORDERED: fentaNYL CITRATE 100 MCG/2 ML VL IV ONE (09:00)
[2021-07-30] MEDS ORDERED: MIDAZOLAM HCL 2MG/2ML 2ml VIAL (1mg/ml) IV ONE (09:00)
[2021-07-30] MEDS: GABAPENTIN 300 MG CAP PO SCH ×2 (10:00→21:47)
[2021-07-30] MEDS: ASCORBIC ACID 500 MG TAB PO SCH (10:00)
[2021-07-30] MEDS: CARVEDILOL 3.125 MG TAB PO SCH ×2 (10:00→22:00)
[2021-07-30] MEDS: HEPARIN SODIUM (PORCINE) 5000 UNITS/ML 1ML VIAL SC SCH ×2 (10:00→21:49)
[2021-07-30 11:51] LABS: BUN/Creatinine Ratio 9.3; Calcium 7.9 mg/dL (8.5-10.1)
[2021-07-30] MEDS: HYDROcodone-ACET 10/325MG TAB PO PRN (15:07)
[2021-07-30] MEDS ORDERED: EPOETIN ALFA-EPBX 10,000 UNIT/1ML VIAL SC ONE (21:00)
[2021-07-31] MEDS: PRAMIPEXOLE DIHYDROCHLORIDE MO 0.25 MG TAB PO SCH ×2 (01:46→21:39)
[2021-07-31 05:00] VITALS: BP 100/38
[2021-07-31 05:44] LABS: Basophils # (auto) 0.1 10 ^3/uL (0-0.2); Eosinophils # (auto) 0.5 10 ^3/uL (0-0.8); Lymphocytes # (auto) 1.4 10 ^3/uL (0.4-5.4); Monocytes # (auto) 0.7 10 ^3/uL (0-1.3); Nucleated Red Blood Cells % 0.2 %
[2021-07-31 05:47] LABS: Eosinophils % (auto) 5.9 % (0.0-7.0); Hematocrit 26.4 % (36.0-46.0); Lymphocytes % (auto) 15.1 % (10.0-50.0); Mean Corpuscular Hemoglobin 29.8 pg (28.0-32.0); Mean Corpuscular Hgb Conc. 30.3 g/dL (32.0-36.0); Mean Corpuscular Volume 98.3 fL (80.0-100.0); Monocytes % (auto) 7.8 % (0.0-12.0); Neutrophils # (auto) 6.5 10 ^3/uL (1.6-8.6); Neutrophils % (auto) 70.2 % (37.0-80.0); Red Blood Cells 2.68 10^6/uL (4.0-5.20); White Blood Cell 9.2 10^3/uL (4.4-10.8)
[2021-07-31] MEDS: FUROSEMIDE 40 MG TAB PO SCH ×2 (06:00→17:23)
[2021-07-31 06:09] LABS: Calcium 7.4 mg/dL (8.5-10.1)
[2021-07-31] MEDS: PIPERACILLIN-TAZOB 2.25GM 50 ML IV SCH (06:09)
[2021-07-31] MEDS: InsuLIN REG 1unit/0.01ml Soln (100units/ml) SC SCH ×4 (06:10→22:00)
[2021-07-31] MEDS: ACCU-CHEK COMFORT CURVE STRIP VI SCH ×4 (06:11→21:40)
[2021-07-31 06:13] LABS: BUN/Creatinine Ratio 9.8; Bilirubin, Total 0.4 mg/dL (0.2-1.0); Total Protein 6.1 g/dL (6.4-8.2)
[2021-07-31 06:21] LABS: Potassium 5.7 mmol/L (3.5-5.1)
[2021-07-31] MEDS ORDERED: SODIUM CHL 0.9% 1000 ML BAG XX ONE (07:00)
[2021-07-31 09:00] VITALS: BP 93/53
[2021-07-31] MEDS: HEPARIN SODIUM (PORCINE) 5000 UNITS/ML 1ML VIAL SC SCH ×2 (09:45→21:39)
[2021-07-31] MEDS: ASCORBIC ACID 500 MG TAB PO SCH (09:45)
[2021-07-31] MEDS: CARVEDILOL 3.125 MG TAB PO SCH ×2 (09:45→21:39)
[2021-07-31] MEDS: GABAPENTIN 300 MG CAP PO SCH ×2 (09:45→21:39)
[2021-07-31 12:39] LABS: INR 1.82 (0.9-1.15); Partial Thromboplastin Time 29.2 sec (23.6-33.0)
[2021-07-31 13:00] VITALS: BP 95/60
[2021-07-31] MEDS ORDERED: DEXTROSE (50%) 50ML SYRG IV ONE (14:30)
[2021-07-31] MEDS ORDERED: InsuLIN REG 1unit/0.01ml Soln (100units/ml) IV ONE (14:30)
[2021-07-31] MEDS ORDERED: ALBUTEROL SULF 2.5 MG/0.5ML(0.5%) NEB SOLN NEB ONE (14:30)
[2021-07-31] MEDS ORDERED: SODIUM BICARBONATE 8.4% INJ 50ML SYRINGE IV ONE (14:30)
[2021-07-31] MEDS: SODIUM ZIRCONIUM CYCL 10 GM PAK PO SCH ×2 (15:20→22:58)
[2021-07-31 17:00] VITALS: BP 103/47
[2021-07-31] MEDS ORDERED: EPOETIN ALFA-EPBX 10,000 UNIT/1ML VIAL SC ONE (21:00)
[2021-07-31 22:00] VITALS: BP 106/56
[2021-08-01] VITALS (64 sets, daily range): BP systolic 47–161; BP diastolic 19–85
[2021-08-01] MEDS ORDERED: ETOMIDATE (2MG/ML) 20ML VIAL IV ONE ×2 (04:31→06:00)
[2021-08-01] MEDS ORDERED: SUCCINYLCHOLINE CHLORIDE 20 MG/ML 10ML VIAL IV ONE ×2 (04:31→06:00)
[2021-08-01] MEDS ORDERED: MIDAZOLAM DRIP 50 mg/50mL 50 ML IV ONE (04:41)
[2021-08-01 05:42] LABS: Basophils # (auto) 0.1 10 ^3/uL (0-0.2); Basophils % (auto) 0.7 % (0.0-2.0); Eosinophils # (auto) 0.1 10 ^3/uL (0-0.8); Eosinophils % (auto) 1.2 % (0.0-7.0); Hematocrit 30.3 % (36.0-46.0); Hemoglobin 9.4 g/dL (12.2-16.2); Lymphocytes # (auto) 2.4 10 ^3/uL (0.4-5.4); Lymphocytes % (auto) 22.4 % (10.0-50.0); Mean Corpuscular Hgb Conc. 30.9 g/dL (32.0-36.0); Mean Corpuscular Volume 96.9 fL (80.0-100.0); Monocytes # (auto) 0.7 10 ^3/uL (0-1.3); Monocytes % (auto) 6.5 % (0.0-12.0); Neutrophils # (auto) 7.6 10 ^3/uL (1.6-8.6); Neutrophils % (auto) 69.2 % (37.0-80.0); Red Blood Cells 3.13 10^6/uL (4.0-5.20); Red Cell Distribution Width 18.9 % (11.8-14.3); White Blood Cell 10.9 10^3/uL (4.4-10.8)
[2021-08-01 05:51] LABS: INR 2.27 (0.9-1.15); Partial Thromboplastin Time 32.4 sec (23.6-33.0)
[2021-08-01 05:52] LABS: Albumin 2.2 g/dL (3.4-5.0); Calcium 7.5 mg/dL (8.5-10.1); Magnesium 2.8 mg/dL (1.6-2.6)
[2021-08-01 05:55] LABS: BUN/Creatinine Ratio 9.5; Bilirubin, Total 0.4 mg/dL (0.2-1.0); Total Protein 6.7 g/dL (6.4-8.2)
[2021-08-01] MEDS: FUROSEMIDE 40 MG TAB PO SCH ×2 (06:00→18:11)
[2021-08-01] MEDS: MIDAZOLAM DRIP 50 mg/50mL 50 ML IV SCH ×5 (06:00→15:14)
[2021-08-01] MEDS ORDERED: NOREPINEPHRINE 8 MG/250ML KIT 250 ML IV ONE (06:07)
[2021-08-01] MEDS: NOREPINEPHRINE 8 MG/250ML KIT 250 ML IV SCH (06:15)
[2021-08-01] MEDS: ACCU-CHEK COMFORT CURVE STRIP VI SCH ×3 (06:21→17:00)
[2021-08-01] MEDS: InsuLIN REG 1unit/0.01ml Soln (100units/ml) SC SCH ×3 (07:00→17:00)
[2021-08-01 09:05] LABS: Cholesterol 148 mg/dL (< 200); HDL Cholesterol 18 mg/dL (40-59); LDL Cholesterol 107 mg/dL (< 100); Triglycerides 228 mg/dL (< 150)
[2021-08-01] MEDS: HEPARIN SODIUM (PORCINE) 5000 UNITS/ML 1ML VIAL SC SCH (10:00)
[2021-08-01] MEDS: CARVEDILOL 3.125 MG TAB PO SCH ×2 (10:00→21:59)
[2021-08-01 14:02] LABS: Magnesium 2.4 mg/dL (1.6-2.6); Potassium 4.3 mmol/L (3.5-5.1)
[2021-08-01] MEDS: SODIUM ZIRCONIUM CYCL 10 GM PAK PO SCH ×2 (14:12→22:00)
[2021-08-01] MEDS: ASCORBIC ACID 500 MG TAB PO SCH (14:12)
[2021-08-01] MEDS: GABAPENTIN 300 MG CAP PO SCH ×2 (14:12→22:00)
[2021-08-01] MEDS ORDERED: Nepro With Carb Steady 1 Liter Bottle GT SCH (16:15)
[2021-08-01] MEDS: fentaNYL Drip 2500mCg/250mlNS 250 ML IV SCH (18:00)
[2021-08-01] MEDS ORDERED: HEPARIN SODIUM (PORCINE) 5000 UNITS/ML 1ML VIAL IV ONE (18:45)
[2021-08-01] MEDS: HEPARIN DRIP/D5W 100UNITS/ML 250 ML IV SCH (21:42)
[2021-08-01] MEDS: ATORVASTATIN 20 MG TAB PO SCH (22:00)
[2021-08-01] MEDS: PRAMIPEXOLE DIHYDROCHLORIDE MO 0.25 MG TAB PO SCH (22:00)
[2021-08-02] VITALS (92 sets, daily range): BP systolic 65–174; BP diastolic 12–84
[2021-08-02 05:22] LABS: Basophils # (auto) 0.1 10 ^3/uL (0-0.2); Basophils % (auto) 1.1 % (0.0-2.0); Eosinophils # (auto) 0.7 10 ^3/uL (0-0.8); Eosinophils % (auto) 5.8 % (0.0-7.0); Hematocrit 35.5 % (36.0-46.0); Hemoglobin 11.2 g/dL (12.2-16.2); Lymphocytes # (auto) 2.3 10 ^3/uL (0.4-5.4); Lymphocytes % (auto) 19.8 % (10.0-50.0); Mean Corpuscular Hemoglobin 29.7 pg (28.0-32.0); Mean Corpuscular Hgb Conc. 31.5 g/dL (32.0-36.0); Mean Corpuscular Volume 94.4 fL (80.0-100.0); Monocytes # (auto) 0.7 10 ^3/uL (0-1.3); Monocytes % (auto) 6.1 % (0.0-12.0); Neutrophils # (auto) 7.9 10 ^3/uL (1.6-8.6); Neutrophils % (auto) 67.2 % (37.0-80.0); Nucleated Red Blood Cells % 0.6 %; Red Blood Cells 3.76 10^6/uL (4.0-5.20); Red Cell Distribution Width 19.1 % (11.8-14.3); White Blood Cell 11.8 10^3/uL (4.4-10.8)
[2021-08-02 05:50] LABS: INR 3.43 (0.9-1.15)
[2021-08-02] MEDS: InsuLIN REG 1unit/0.01ml Soln (100units/ml) SC SCH ×4 (06:00→18:00)
[2021-08-02] MEDS: FUROSEMIDE 40 MG TAB PO SCH (06:00)
[2021-08-02 06:05] LABS: Potassium 4.5 mmol/L (3.5-5.1)
[2021-08-02 06:13] LABS: Albumin 1.9 g/dL (3.4-5.0); BUN/Creatinine Ratio 9.7; Bilirubin, Total 0.4 mg/dL (0.2-1.0); Calcium 7.6 mg/dL (8.5-10.1); Total Protein 5.7 g/dL (6.4-8.2)
[2021-08-02] MEDS: NOREPINEPHRINE 8 MG/250ML KIT 250 ML IV SCH (06:15)
[2021-08-02] MEDS: fentaNYL Drip 2500mCg/250mlNS 250 ML IV SCH (06:15)
[2021-08-02] MEDS: MIDAZOLAM DRIP 50 mg/50mL 50 ML IV SCH ×2 (06:17→11:52)
[2021-08-02] MEDS: ACCU-CHEK COMFORT CURVE STRIP VI SCH ×4 (06:18→18:18)
[2021-08-02 06:34] LABS: Partial Thromboplastin Time 98.3 sec (23.6-33.0)
[2021-08-02] MEDS ORDERED: IOHEXOL 350 MG/ML 100ML IJ ONE ×2 (09:30→12:10)
[2021-08-02] MEDS: SODIUM ZIRCONIUM CYCL 10 GM PAK PO SCH (10:00)
[2021-08-02] MEDS: CARVEDILOL 3.125 MG TAB PO SCH ×2 (10:00→21:43)
[2021-08-02] MEDS: GABAPENTIN 300 MG CAP PO SCH ×2 (11:09→22:00)
[2021-08-02] MEDS: ASCORBIC ACID 500 MG TAB PO SCH (11:09)
[2021-08-02] MEDS: HEPARIN DRIP/D5W 100UNITS/ML 250 ML IV SCH (14:24)
[2021-08-02 14:43] LABS: INR 2.39 (0.9-1.15); Partial Thromboplastin Time 47.9 sec (23.6-33.0)
[2021-08-02 21:50] LABS: INR 2.47 (0.9-1.15)
[2021-08-02] MEDS: PRAMIPEXOLE DIHYDROCHLORIDE MO 0.25 MG TAB PO SCH (22:00)
[2021-08-02] MEDS: ATORVASTATIN 20 MG TAB PO SCH (22:00)
[2021-08-03] VITALS (80 sets, daily range): BP systolic 80–199; BP diastolic 11–87
[2021-08-03] MEDS: HEPARIN DRIP/D5W 100UNITS/ML 250 ML IV SCH ×2 (00:11→11:13)
[2021-08-03 03:24] LABS: INR 2.19 (0.9-1.15); Partial Thromboplastin Time 57.5 sec (23.6-33.0)
[2021-08-03 04:58] LABS: Basophils # (auto) 0.2 10 ^3/uL (0-0.2); Hemoglobin 11.6 g/dL (12.2-16.2); Monocytes # (auto) 1.6 10 ^3/uL (0-1.3); Red Cell Distribution Width 19.7 % (11.8-14.3)
[2021-08-03 04:59] LABS: Basophils % (auto) 1.2 % (0.0-2.0); Eosinophils % (auto) 5.6 % (0.0-7.0); Hematocrit 38.3 % (36.0-46.0); Lymphocytes # (auto) 2.7 10 ^3/uL (0.4-5.4); Lymphocytes % (auto) 14.7 % (10.0-50.0); Mean Corpuscular Hemoglobin 28.7 pg (28.0-32.0); Mean Corpuscular Hgb Conc. 30.2 g/dL (32.0-36.0); Mean Corpuscular Volume 95.3 fL (80.0-100.0); Monocytes % (auto) 8.7 % (0.0-12.0); Neutrophils # (auto) 12.9 10 ^3/uL (1.6-8.6); Neutrophils % (auto) 69.8 % (37.0-80.0); Nucleated Red Blood Cells % 0.3 %; Red Blood Cells 4.02 10^6/uL (4.0-5.20); White Blood Cell 18.5 10^3/uL (4.4-10.8)
[2021-08-03 05:20] LABS: Albumin 1.8 g/dL (3.4-5.0); Calcium 8.1 mg/dL (8.5-10.1); Potassium 4.3 mmol/L (3.5-5.1)
[2021-08-03 05:22] LABS: BUN/Creatinine Ratio 9.6
[2021-08-03 05:26] LABS: Bilirubin, Total 0.5 mg/dL (0.2-1.0); Total Protein 5.8 g/dL (6.4-8.2)
[2021-08-03] MEDS: InsuLIN REG 1unit/0.01ml Soln (100units/ml) SC SCH ×4 (06:00→17:01)
[2021-08-03] MEDS: ACCU-CHEK COMFORT CURVE STRIP VI SCH ×4 (06:00→18:00)
[2021-08-03] MEDS: fentaNYL Drip 2500mCg/250mlNS 250 ML IV SCH (06:15)
[2021-08-03] MEDS: NOREPINEPHRINE 8 MG/250ML KIT 250 ML IV SCH ×2 (06:15→07:38)
[2021-08-03] MEDS ORDERED: SODIUM CHL 0.9% 1000 ML BAG XX ONE (07:00)
[2021-08-03] MEDS ORDERED: ALBUMIN 25% 100 ML IV ONE ×2 (09:10→09:15)
[2021-08-03] MEDS: CARVEDILOL 3.125 MG TAB PO SCH ×2 (10:00→21:38)
[2021-08-03 10:02] LABS: INR 2.39 (0.9-1.15)
[2021-08-03 10:05] LABS: Partial Thromboplastin Time > 139.0 sec (23.6-33.0)
[2021-08-03] MEDS: GABAPENTIN 300 MG CAP PO SCH ×2 (11:59→21:58)
[2021-08-03] MEDS: ASCORBIC ACID 500 MG TAB PO SCH (11:59)
[2021-08-03 17:18] LABS: INR 1.96 (0.9-1.15)
[2021-08-03] MEDS: ATORVASTATIN 20 MG TAB PO SCH (21:58)
[2021-08-03] MEDS: PRAMIPEXOLE DIHYDROCHLORIDE MO 0.25 MG TAB PO SCH (21:58)
[2021-08-04] VITALS (89 sets, daily range): BP systolic 29–188; BP diastolic 14–62
[2021-08-04] MEDS: InsuLIN REG 1unit/0.01ml Soln (100units/ml) SC SCH ×4 (00:03→17:36)
[2021-08-04] MEDS: ACCU-CHEK COMFORT CURVE STRIP VI SCH ×4 (00:04→17:36)
[2021-08-04 00:18] LABS: INR 1.73 (0.9-1.15); Partial Thromboplastin Time 44.2 sec (23.6-33.0)
[2021-08-04] MEDS: HEPARIN DRIP/D5W 100UNITS/ML 250 ML IV SCH ×4 (03:59→19:53)
[2021-08-04 04:33] LABS: Basophils # (auto) 0.1 10 ^3/uL (0-0.2); Basophils % (auto) 0.7 % (0.0-2.0); Eosinophils # (auto) 0.5 10 ^3/uL (0-0.8); Eosinophils % (auto) 4.7 % (0.0-7.0); Hematocrit 30.2 % (36.0-46.0); Hemoglobin 9.4 g/dL (12.2-16.2); Lymphocytes # (auto) 1.8 10 ^3/uL (0.4-5.4); Lymphocytes % (auto) 16.3 % (10.0-50.0); Mean Corpuscular Hemoglobin 29.2 pg (28.0-32.0); Mean Corpuscular Volume 94.2 fL (80.0-100.0); Monocytes # (auto) 0.7 10 ^3/uL (0-1.3); Monocytes % (auto) 6.6 % (0.0-12.0); Neutrophils # (auto) 8.2 10 ^3/uL (1.6-8.6); Neutrophils % (auto) 71.7 % (37.0-80.0); Nucleated Red Blood Cells % 0.1 %; Red Cell Distribution Width 19.5 % (11.8-14.3); White Blood Cell 11.4 10^3/uL (4.4-10.8)
[2021-08-04 04:54] LABS: Albumin 1.9 g/dL (3.4-5.0); Calcium 7.9 mg/dL (8.5-10.1); Potassium 3.3 mmol/L (3.5-5.1)
[2021-08-04 04:56] LABS: BUN/Creatinine Ratio 8.2
[2021-08-04 04:58] LABS: Bilirubin, Total 0.5 mg/dL (0.2-1.0); Total Protein 5.6 g/dL (6.4-8.2)
[2021-08-04] MEDS: MIDAZOLAM DRIP 50 mg/50mL 50 ML IV SCH (06:00)
[2021-08-04] MEDS ORDERED: POTASSIUM CHL 20MEQ/100ML 100 ML IV ONE (09:30)
[2021-08-04] MEDS: CARVEDILOL 3.125 MG TAB PO SCH ×2 (09:50→21:44)
[2021-08-04] MEDS: fentaNYL Drip 2500mCg/250mlNS 250 ML IV SCH (09:50)
[2021-08-04] MEDS: ASCORBIC ACID 500 MG TAB PO SCH (09:51)
[2021-08-04] MEDS: GABAPENTIN 300 MG CAP PO SCH ×2 (09:56→21:44)
[2021-08-04 11:17] LABS: INR 1.51 (0.9-1.15); Partial Thromboplastin Time 40.4 sec (23.6-33.0)
[2021-08-04 19:38] LABS: INR 1.35 (0.9-1.15); Partial Thromboplastin Time 43.9 sec (23.6-33.0)
[2021-08-04] MEDS: LINEZOLID 600MG/300ML 300 ML IV SCH (21:43)
[2021-08-04] MEDS: PRAMIPEXOLE DIHYDROCHLORIDE MO 0.25 MG TAB PO SCH (21:44)
[2021-08-04] MEDS: ATORVASTATIN 20 MG TAB PO SCH (21:44)
[2021-08-05] VITALS (97 sets, daily range): BP systolic 32–162; BP diastolic 17–79
[2021-08-05 01:17] LABS: Urine Bacteria FEW /hpf (None Seen); Urine Blood 2+ /uL (Negative); Urine Hyaline Cast MOD /lpf (0 - 2); Urine Mucus FEW (None Seen); Urine Specific Gravity 1.012 (1.001-1.035); Urine WBC 64 /hpf (0 - 5); Urine WBC Clumps PRESENT /hpf (None Seen)
[2021-08-05 03:28] LABS: INR 1.32 (0.9-1.15); Partial Thromboplastin Time 64.5 sec (23.6-33.0)
[2021-08-05] MEDS: MIDAZOLAM DRIP 50 mg/50mL 50 ML IV SCH (06:00)
[2021-08-05] MEDS: ACCU-CHEK COMFORT CURVE STRIP VI SCH ×4 (06:01→18:04)
[2021-08-05] MEDS: fentaNYL Drip 2500mCg/250mlNS 250 ML IV SCH (06:15)
[2021-08-05] MEDS: NOREPINEPHRINE 8 MG/250ML KIT 250 ML IV SCH (06:15)
[2021-08-05] MEDS: InsuLIN REG 1unit/0.01ml Soln (100units/ml) SC SCH ×4 (06:40→18:00)
[2021-08-05] MEDS: CARVEDILOL 3.125 MG TAB PO SCH ×2 (09:48→22:00)
[2021-08-05] MEDS: ASCORBIC ACID 500 MG TAB PO SCH (09:48)
[2021-08-05] MEDS: LINEZOLID 600MG/300ML 300 ML IV SCH ×2 (09:48→22:00)
[2021-08-05] MEDS: GABAPENTIN 300 MG CAP PO SCH ×2 (10:00→22:00)
[2021-08-05 15:45] LABS: INR 1.3 (0.9-1.15)
[2021-08-05 15:59] LABS: Partial Thromboplastin Time 124.2 sec (23.6-33.0)
[2021-08-05] MEDS: PRAMIPEXOLE DIHYDROCHLORIDE MO 0.25 MG TAB PO SCH (22:00)
[2021-08-05] MEDS: ATORVASTATIN 20 MG TAB PO SCH (22:00)
[2021-08-05 23:48] LABS: INR 1.23 (0.9-1.15); Partial Thromboplastin Time 46.4 sec (23.6-33.0)
[2021-08-06] VITALS (92 sets, daily range): BP systolic 100–138; BP diastolic 20–93
[2021-08-06] MEDS: ACCU-CHEK COMFORT CURVE STRIP VI SCH ×5 (00:19→23:57)
[2021-08-06] MEDS: HEPARIN DRIP/D5W 100UNITS/ML 250 ML IV SCH ×3 (00:24→19:46)
[2021-08-06] MEDS: fentaNYL Drip 2500mCg/250mlNS 250 ML IV SCH (05:12)
[2021-08-06] MEDS: MIDAZOLAM DRIP 50 mg/50mL 50 ML IV SCH (05:12)
[2021-08-06] MEDS: InsuLIN REG 1unit/0.01ml Soln (100units/ml) SC SCH ×4 (06:00→18:00)
[2021-08-06] MEDS: NOREPINEPHRINE 8 MG/250ML KIT 250 ML IV SCH (06:15)
[2021-08-06 06:16] LABS: Basophils # (auto) 0.1 10 ^3/uL (0-0.2); Basophils % (auto) 1.1 % (0.0-2.0); Eosinophils # (auto) 0.5 10 ^3/uL (0-0.8); Eosinophils % (auto) 5.8 % (0.0-7.0); Hematocrit 28.6 % (36.0-46.0); Hemoglobin 9.3 g/dL (12.2-16.2); Lymphocytes # (auto) 0.9 10 ^3/uL (0.4-5.4); Lymphocytes % (auto) 11.2 % (10.0-50.0); Mean Corpuscular Hemoglobin 29.8 pg (28.0-32.0); Mean Corpuscular Hgb Conc. 32.5 g/dL (32.0-36.0); Mean Corpuscular Volume 91.7 fL (80.0-100.0); Monocytes # (auto) 0.3 10 ^3/uL (0-1.3); Monocytes % (auto) 3.9 % (0.0-12.0); Neutrophils # (auto) 6.6 10 ^3/uL (1.6-8.6); Red Blood Cells 3.12 10^6/uL (4.0-5.20); Red Cell Distribution Width 18.9 % (11.8-14.3); White Blood Cell 8.4 10^3/uL (4.4-10.8)
[2021-08-06 06:27] LABS: INR 1.2 (0.9-1.15); Partial Thromboplastin Time 45.9 sec (23.6-33.0)
[2021-08-06 06:34] LABS: BUN/Creatinine Ratio 8.5; Calcium 7.6 mg/dL (8.5-10.1); Magnesium 2.1 mg/dL (1.6-2.6)
[2021-08-06 06:53] LABS: Potassium 2.8 mmol/L (3.5-5.1)
[2021-08-06] MEDS ORDERED: SODIUM CHL 0.9% 1000 ML BAG XX ONE (07:00)
[2021-08-06] MEDS: CARVEDILOL 3.125 MG TAB PO SCH ×2 (10:00→20:59)
[2021-08-06] MEDS: LINEZOLID 600MG/300ML 300 ML IV SCH ×2 (10:20→20:58)
[2021-08-06] MEDS: ASCORBIC ACID 500 MG TAB PO SCH (10:21)
[2021-08-06] MEDS: GABAPENTIN 300 MG CAP PO SCH ×2 (10:21→20:59)
[2021-08-06 11:47] LABS: INR 1.2 (0.9-1.15); Partial Thromboplastin Time 49.8 sec (23.6-33.0)
[2021-08-06] MEDS ORDERED: POTASSIUM CHL 20MEQ/100ML 100 ML IV ONE (12:15)
[2021-08-06 17:41] LABS: INR 1.24 (0.9-1.15)
[2021-08-06 18:12] LABS: Partial Thromboplastin Time 84.7 sec (23.6-33.0)
[2021-08-06] MEDS: ATORVASTATIN 20 MG TAB PO SCH (20:59)
[2021-08-06] MEDS: PRAMIPEXOLE DIHYDROCHLORIDE MO 0.25 MG TAB PO SCH (20:59)
[2021-08-06] MEDS ORDERED: EPOETIN ALFA-EPBX 4,000 UNIT/ML VIAL SC ONE (21:00)
[2021-08-07] VITALS (84 sets, daily range): BP systolic 91–152; BP diastolic 33–76
[2021-08-07] MEDS: InsuLIN REG 1unit/0.01ml Soln (100units/ml) SC SCH ×4 (00:17→18:05)
[2021-08-07] MEDS: HEPARIN DRIP/D5W 100UNITS/ML 250 ML IV SCH ×2 (02:00→09:49)
[2021-08-07 02:11] LABS: INR 1.27 (0.9-1.15); Partial Thromboplastin Time 66.2 sec (23.6-33.0)
[2021-08-07 05:30] LABS: Basophils # (auto) 0.1 10 ^3/uL (0-0.2); Basophils % (auto) 0.5 % (0.0-2.0); Eosinophils # (auto) 0.5 10 ^3/uL (0-0.8); Hematocrit 30.1 % (36.0-46.0); Hemoglobin 9.5 g/dL (12.2-16.2); Lymphocytes # (auto) 1.1 10 ^3/uL (0.4-5.4); Mean Corpuscular Hemoglobin 29.7 pg (28.0-32.0); Mean Corpuscular Hgb Conc. 31.4 g/dL (32.0-36.0); Mean Corpuscular Volume 94.5 fL (80.0-100.0); Monocytes # (auto) 0.7 10 ^3/uL (0-1.3); Monocytes % (auto) 6.2 % (0.0-12.0); Neutrophils # (auto) 8.3 10 ^3/uL (1.6-8.6); Neutrophils % (auto) 78.3 % (37.0-80.0); Nucleated Red Blood Cells % 0.1 %; Red Blood Cells 3.18 10^6/uL (4.0-5.20); Red Cell Distribution Width 19.7 % (11.8-14.3); White Blood Cell 10.6 10^3/uL (4.4-10.8)
[2021-08-07 05:48] LABS: INR 1.23 (0.9-1.15); Partial Thromboplastin Time 61.8 sec (23.6-33.0); Potassium 3.2 mmol/L (3.5-5.1)
[2021-08-07 05:53] LABS: BUN/Creatinine Ratio 7.7; Calcium 7.7 mg/dL (8.5-10.1); Magnesium 2.5 mg/dL (1.6-2.6)
[2021-08-07] MEDS: MIDAZOLAM DRIP 50 mg/50mL 50 ML IV SCH (06:00)
[2021-08-07] MEDS: fentaNYL Drip 2500mCg/250mlNS 250 ML IV SCH (06:15)
[2021-08-07] MEDS: NOREPINEPHRINE 8 MG/250ML KIT 250 ML IV SCH (06:15)
[2021-08-07] MEDS: ACCU-CHEK COMFORT CURVE STRIP VI SCH ×3 (06:23→17:59)
[2021-08-07] MEDS: ACETAMINOPHEN 325 MG TAB PO PRN ×2 (06:55→12:52)
[2021-08-07] MEDS: GABAPENTIN 300 MG CAP PO SCH ×2 (09:41→20:56)
[2021-08-07] MEDS: LINEZOLID 600MG/300ML 300 ML IV SCH ×2 (09:41→20:56)
[2021-08-07] MEDS: ASCORBIC ACID 500 MG TAB PO SCH (09:43)
[2021-08-07] MEDS: CARVEDILOL 3.125 MG TAB PO SCH ×2 (09:44→20:56)
[2021-08-07 12:27] LABS: INR 1.21 (0.9-1.15); Partial Thromboplastin Time 66.3 sec (23.6-33.0)
[2021-08-07] MEDS: ATORVASTATIN 20 MG TAB PO SCH (20:56)
[2021-08-07] MEDS: PRAMIPEXOLE DIHYDROCHLORIDE MO 0.25 MG TAB PO SCH (20:56)
[2021-08-08] VITALS (78 sets, daily range): BP systolic 90–128; BP diastolic 28–86
[2021-08-08 05:38] LABS: Basophils # (auto) 0.1 10 ^3/uL (0-0.2); Basophils % (auto) 0.9 % (0.0-2.0); Eosinophils # (auto) 0.4 10 ^3/uL (0-0.8); Eosinophils % (auto) 2.4 % (0.0-7.0); Hematocrit 27.6 % (36.0-46.0); Hemoglobin 8.7 g/dL (12.2-16.2); Lymphocytes # (auto) 1.6 10 ^3/uL (0.4-5.4); Lymphocytes % (auto) 9.3 % (10.0-50.0); Mean Corpuscular Hemoglobin 29.4 pg (28.0-32.0); Mean Corpuscular Hgb Conc. 31.6 g/dL (32.0-36.0); Mean Corpuscular Volume 92.8 fL (80.0-100.0); Monocytes % (auto) 5.6 % (0.0-12.0); Neutrophils # (auto) 14.1 10 ^3/uL (1.6-8.6); Neutrophils % (auto) 81.8 % (37.0-80.0); Red Blood Cells 2.98 10^6/uL (4.0-5.20); Red Cell Distribution Width 19.1 % (11.8-14.3); White Blood Cell 17.2 10^3/uL (4.4-10.8)
[2021-08-08 05:56] LABS: INR 1.25 (0.9-1.15); Potassium 3.4 mmol/L (3.5-5.1)
[2021-08-08 05:59] LABS: BUN/Creatinine Ratio 8.9; Calcium 8.2 mg/dL (8.5-10.1); Magnesium 2.3 mg/dL (1.6-2.6)
[2021-08-08] MEDS: ACCU-CHEK COMFORT CURVE STRIP VI SCH ×4 (06:00→18:05)
[2021-08-08] MEDS: InsuLIN REG 1unit/0.01ml Soln (100units/ml) SC SCH ×4 (06:00→18:00)
[2021-08-08] MEDS: MIDAZOLAM DRIP 50 mg/50mL 50 ML IV SCH ×2 (06:00→11:26)
[2021-08-08 06:14] LABS: Partial Thromboplastin Time 88.5 sec (23.6-33.0)
[2021-08-08] MEDS: fentaNYL Drip 2500mCg/250mlNS 250 ML IV SCH (06:15)
[2021-08-08] MEDS: NOREPINEPHRINE 8 MG/250ML KIT 250 ML IV SCH (06:15)
[2021-08-08] MEDS: HEPARIN DRIP/D5W 100UNITS/ML 250 ML IV SCH ×2 (06:33→14:53)
[2021-08-08] MEDS: LINEZOLID 600MG/300ML 300 ML IV SCH ×2 (09:30→22:40)
[2021-08-08] MEDS: PANTOPRAZOLE 40 MG/10 ML VIAL INJ IV SCH (09:30)
[2021-08-08] MEDS: ASCORBIC ACID 500 MG TAB PO SCH (09:30)
[2021-08-08] MEDS: CARVEDILOL 3.125 MG TAB PO SCH ×2 (09:31→22:00)
[2021-08-08] MEDS: GABAPENTIN 300 MG CAP PO SCH ×2 (09:31→22:00)
[2021-08-08] MEDS ORDERED: PANTOPRAZOLE 40 MG TAB PO SCH (10:00)
[2021-08-08 12:47] LABS: INR 1.23 (0.9-1.15)
[2021-08-08 12:50] LABS: Partial Thromboplastin Time 72.9 sec (23.6-33.0)
[2021-08-08] MEDS: ACETAMINOPHEN 325 MG TAB PO PRN (16:14)
[2021-08-08 18:31] LABS: INR 1.23 (0.9-1.15); Partial Thromboplastin Time 62.6 sec (23.6-33.0)
[2021-08-08] MEDS: PRAMIPEXOLE DIHYDROCHLORIDE MO 0.25 MG TAB PO SCH (22:00)
[2021-08-08] MEDS: ATORVASTATIN 20 MG TAB PO SCH (22:00)
[2021-08-09] VITALS (77 sets, daily range): BP systolic 93–140; BP diastolic 33–73
[2021-08-09 01:23] LABS: Basophils # (auto) 0.1 10 ^3/uL (0-0.2); Eosinophils # (auto) 0.4 10 ^3/uL (0-0.8); Hemoglobin 8.4 g/dL (12.2-16.2); Red Cell Distribution Width 18.6 % (11.8-14.3)
[2021-08-09 01:25] LABS: Basophils % (auto) 0.4 % (0.0-2.0); Eosinophils % (auto) 2.7 % (0.0-7.0); Hematocrit 26.3 % (36.0-46.0); Lymphocytes # (auto) 1.3 10 ^3/uL (0.4-5.4); Lymphocytes % (auto) 7.8 % (10.0-50.0); Mean Corpuscular Hemoglobin 30.1 pg (28.0-32.0); Mean Corpuscular Volume 94.1 fL (80.0-100.0); Neutrophils % (auto) 83.1 % (37.0-80.0); Red Blood Cells 2.79 10^6/uL (4.0-5.20); White Blood Cell 16.9 10^3/uL (4.4-10.8)
[2021-08-09 01:35] LABS: INR 1.22 (0.9-1.15); Partial Thromboplastin Time 55.5 sec (23.6-33.0)
[2021-08-09 01:40] LABS: Calcium 7.9 mg/dL (8.5-10.1); Magnesium 2.4 mg/dL (1.6-2.6); Potassium 3.8 mmol/L (3.5-5.1)
[2021-08-09 01:42] LABS: BUN/Creatinine Ratio 9.1
[2021-08-09] MEDS: InsuLIN REG 1unit/0.01ml Soln (100units/ml) SC SCH ×4 (06:00→17:35)
[2021-08-09] MEDS: ACCU-CHEK COMFORT CURVE STRIP VI SCH ×4 (06:00→17:35)
[2021-08-09] MEDS: MIDAZOLAM DRIP 50 mg/50mL 50 ML IV SCH (06:00)
[2021-08-09] MEDS: NOREPINEPHRINE 8 MG/250ML KIT 250 ML IV SCH (06:15)
[2021-08-09] MEDS: fentaNYL Drip 2500mCg/250mlNS 250 ML IV SCH (06:15)
[2021-08-09] MEDS: HEPARIN DRIP/D5W 100UNITS/ML 250 ML IV SCH ×3 (06:39→20:18)
[2021-08-09 08:47] LABS: INR 1.23 (0.9-1.15); Partial Thromboplastin Time 52.1 sec (23.6-33.0)
[2021-08-09] MEDS: PANTOPRAZOLE 40 MG/10 ML VIAL INJ IV SCH (09:54)
[2021-08-09] MEDS: CARVEDILOL 3.125 MG TAB PO SCH ×2 (09:54→22:00)
[2021-08-09] MEDS: ASCORBIC ACID 500 MG TAB PO SCH (09:54)
[2021-08-09] MEDS: GABAPENTIN 300 MG CAP PO SCH ×2 (09:54→22:00)
[2021-08-09] MEDS: LINEZOLID 600MG/300ML 300 ML IV SCH (09:55)
[2021-08-09] MEDS ORDERED: DexAMETHasone SOD PHOS 4 MG/1ML SDV INJ IM ONE (10:15)
[2021-08-09] MEDS ORDERED: DexAMETHasone SOD PHOS 4 MG/1ML SDV INJ IV ONE (10:45)
[2021-08-09] MEDS ORDERED: IPRATROPIUM BROM 0.5 MG/2.5ML INH SOL NEB PRN (15:45)
[2021-08-09] MEDS ORDERED: ALBUTEROL SULF 2.5 MG/0.5ML(0.5%) NEB SOLN NEB PRN (15:45)
[2021-08-09] MEDS ORDERED: EPOETIN ALFA-EPBX 4,000 UNIT/ML VIAL SC ONE (21:00)
[2021-08-09] MEDS: ATORVASTATIN 20 MG TAB PO SCH (22:00)
[2021-08-09] MEDS: PRAMIPEXOLE DIHYDROCHLORIDE MO 0.25 MG TAB PO SCH (22:00)
[2021-08-10] VITALS (44 sets, daily range): BP systolic 95–130; BP diastolic 33–70
[2021-08-10] MEDS: ACCU-CHEK COMFORT CURVE STRIP VI SCH ×5 (00:16→23:13)
[2021-08-10 05:11] LABS: Basophils # (auto) 0 10 ^3/uL (0-0.2); Basophils % (auto) 0.3 % (0.0-2.0); Eosinophils # (auto) 0 10 ^3/uL (0-0.8); Hemoglobin 8.4 g/dL (12.2-16.2); Lymphocytes # (auto) 0.7 10 ^3/uL (0.4-5.4); Neutrophils % (auto) 93.2 % (37.0-80.0)
[2021-08-10 05:12] LABS: Hematocrit 26.6 % (36.0-46.0); Lymphocytes % (auto) 5.1 % (10.0-50.0); Mean Corpuscular Hgb Conc. 31.5 g/dL (32.0-36.0); Monocytes # (auto) 0.2 10 ^3/uL (0-1.3); Monocytes % (auto) 1.4 % (0.0-12.0); Neutrophils # (auto) 11.9 10 ^3/uL (1.6-8.6); Red Blood Cells 2.89 10^6/uL (4.0-5.20); Red Cell Distribution Width 18.4 % (11.8-14.3); White Blood Cell 12.8 10^3/uL (4.4-10.8)
[2021-08-10 05:26] LABS: Calcium 8.4 mg/dL (8.5-10.1); Magnesium 2.6 mg/dL (1.6-2.6); Potassium 4.5 mmol/L (3.5-5.1)
[2021-08-10 05:29] LABS: BUN/Creatinine Ratio 10.4
[2021-08-10 05:36] LABS: INR 1.24 (0.9-1.15)
[2021-08-10 05:43] LABS: Partial Thromboplastin Time 83.2 sec (23.6-33.0)
[2021-08-10] MEDS: MIDAZOLAM DRIP 50 mg/50mL 50 ML IV SCH (06:00)
[2021-08-10] MEDS: HEPARIN DRIP/D5W 100UNITS/ML 250 ML IV SCH ×2 (06:00→14:47)
[2021-08-10] MEDS: InsuLIN REG 1unit/0.01ml Soln (100units/ml) SC SCH ×4 (06:02→23:12)
[2021-08-10] MEDS: fentaNYL Drip 2500mCg/250mlNS 250 ML IV SCH (06:11)
[2021-08-10] MEDS: NOREPINEPHRINE 8 MG/250ML KIT 250 ML IV SCH (06:15)
[2021-08-10] MEDS: GABAPENTIN 300 MG CAP PO SCH ×2 (09:40→22:00)
[2021-08-10] MEDS: ASCORBIC ACID 500 MG TAB PO SCH (09:40)
[2021-08-10] MEDS: PANTOPRAZOLE 40 MG/10 ML VIAL INJ IV SCH (09:40)
[2021-08-10] MEDS: CARVEDILOL 3.125 MG TAB PO SCH ×2 (09:40→22:00)
[2021-08-10 13:14] LABS: INR 1.28 (0.9-1.15); Partial Thromboplastin Time 60.6 sec (23.6-33.0)
[2021-08-10 18:22] LABS: INR 1.3 (0.9-1.15); Partial Thromboplastin Time 67.5 sec (23.6-33.0)
[2021-08-10] MEDS: PRAMIPEXOLE DIHYDROCHLORIDE MO 0.25 MG TAB PO SCH (22:00)
[2021-08-10] MEDS: ATORVASTATIN 20 MG TAB PO SCH (22:00)
[2021-08-11 01:25] LABS: INR 1.34 (0.9-1.15); Partial Thromboplastin Time 60.1 sec (23.6-33.0)
[2021-08-11 05:00] VITALS: BP 92/42
[2021-08-11] MEDS: ACCU-CHEK COMFORT CURVE STRIP VI SCH ×3 (05:20→17:31)
[2021-08-11] MEDS: InsuLIN REG 1unit/0.01ml Soln (100units/ml) SC SCH ×3 (05:20→17:31)
[2021-08-11] MEDS: HEPARIN DRIP/D5W 100UNITS/ML 250 ML IV SCH ×2 (07:05→16:00)
[2021-08-11 07:44] LABS: Basophils # (auto) 0 10 ^3/uL (0-0.2); Eosinophils # (auto) 0 10 ^3/uL (0-0.8); Hemoglobin 7.5 g/dL (12.2-16.2); Neutrophils # (auto) 12.6 10 ^3/uL (1.6-8.6); Neutrophils % (auto) 90.7 % (37.0-80.0); White Blood Cell 13.9 10^3/uL (4.4-10.8)
[2021-08-11 07:46] LABS: Hematocrit 23.2 % (36.0-46.0); Lymphocytes # (auto) 0.7 10 ^3/uL (0.4-5.4); Lymphocytes % (auto) 4.9 % (10.0-50.0); Mean Corpuscular Hemoglobin 29.7 pg (28.0-32.0); Mean Corpuscular Hgb Conc. 32.3 g/dL (32.0-36.0); Monocytes # (auto) 0.6 10 ^3/uL (0-1.3); Monocytes % (auto) 4.4 % (0.0-12.0); Red Blood Cells 2.52 10^6/uL (4.0-5.20)
[2021-08-11 07:56] LABS: BUN/Creatinine Ratio 10.7; Calcium 7.4 mg/dL (8.5-10.1); Magnesium 2.5 mg/dL (1.6-2.6); Potassium 3.9 mmol/L (3.5-5.1)
[2021-08-11 08:17] LABS: INR 1.37 (0.9-1.15)
[2021-08-11 09:00] VITALS: BP 117/58
[2021-08-11] MEDS: PANTOPRAZOLE 40 MG/10 ML VIAL INJ IV SCH (11:18)
[2021-08-11] MEDS: ASCORBIC ACID 500 MG TAB PO SCH (11:18)
[2021-08-11] MEDS: GABAPENTIN 300 MG CAP PO SCH ×2 (11:18→21:28)
[2021-08-11] MEDS: CARVEDILOL 3.125 MG TAB PO SCH ×2 (11:19→21:27)
[2021-08-11 13:06] VITALS: BP 116/100
[2021-08-11] MEDS: HYDROcodone-ACET 5/325MG TAB PO PRN (13:11)
[2021-08-11 13:23] LABS: INR 1.4 (0.9-1.15); Partial Thromboplastin Time 51.9 sec (23.6-33.0)
[2021-08-11 16:49] VITALS: BP 99/63
[2021-08-11] MEDS: ATORVASTATIN 20 MG TAB PO SCH (21:27)
[2021-08-11] MEDS: PRAMIPEXOLE DIHYDROCHLORIDE MO 0.25 MG TAB PO SCH (21:29)
[2021-08-11 23:44] VITALS: BP 96/56
[2021-08-12] VITALS (51 sets, daily range): BP systolic 88–143; BP diastolic 30–78
[2021-08-12] MEDS: ACCU-CHEK COMFORT CURVE STRIP VI SCH ×4 (00:15→18:29)
[2021-08-12] MEDS ORDERED: NOREPINEPHRINE 8 MG/250ML KIT 250 ML IV PRN (01:30)
[2021-08-12] MEDS ORDERED: PIPERACILLIN-TAZOB 2.25GM 50 ML IV ONE (01:30)
[2021-08-12] MEDS: InsuLIN REG 1unit/0.01ml Soln (100units/ml) SC SCH ×4 (05:45→18:00)
[2021-08-12 07:57] LABS: INR 1.46 (0.9-1.15); Partial Thromboplastin Time 47.8 sec (23.6-33.0)
[2021-08-12] MEDS ORDERED: LINEZOLID 600MG/300ML 300 ML IV SCH (08:00)
[2021-08-12] MEDS: ASCORBIC ACID 500 MG TAB PO SCH (10:00)
[2021-08-12] MEDS: GABAPENTIN 300 MG CAP PO SCH (10:00)
[2021-08-12] MEDS: CARVEDILOL 3.125 MG TAB PO SCH ×2 (10:00→22:00)
[2021-08-12] MEDS ORDERED: PATIENTS OWN MEDICATION (zyvox 600 MG) IV SCH (10:00)
[2021-08-12] MEDS ORDERED: PIPERACILLIN-TAZOB 2.25GM 50 ML IV SCH (10:00)
[2021-08-12] MEDS: PANTOPRAZOLE 40 MG/10 ML VIAL INJ IV SCH (10:07)
[2021-08-12 10:43] LABS: Basophils # (auto) 0.1 10 ^3/uL (0-0.2); Basophils % (auto) 0.3 % (0.0-2.0); Eosinophils # (auto) 0.1 10 ^3/uL (0-0.8); Eosinophils % (auto) 0.3 % (0.0-7.0); Hematocrit 29.2 % (36.0-46.0); Hemoglobin 8.2 g/dL (12.2-16.2); Lymphocytes # (auto) 2.1 10 ^3/uL (0.4-5.4); Lymphocytes % (auto) 7.4 % (10.0-50.0); Mean Corpuscular Hemoglobin 28.1 pg (28.0-32.0); Mean Corpuscular Hgb Conc. 28.2 g/dL (32.0-36.0); Mean Corpuscular Volume 99.8 fL (80.0-100.0); Monocytes # (auto) 1.6 10 ^3/uL (0-1.3); Monocytes % (auto) 5.7 % (0.0-12.0); Neutrophils # (auto) 24.5 10 ^3/uL (1.6-8.6); Neutrophils % (auto) 86.3 % (37.0-80.0); Nucleated Red Blood Cells % 0.1 %; Red Blood Cells 2.93 10^6/uL (4.0-5.20); Red Cell Distribution Width 19.3 % (11.8-14.3); White Blood Cell 28.3 10^3/uL (4.4-10.8)
[2021-08-12 11:17] LABS: Albumin 1.8 g/dL (3.4-5.0); Calcium 7.1 mg/dL (8.5-10.1); Magnesium 2.6 mg/dL (1.6-2.6); Potassium 4.3 mmol/L (3.5-5.1)
[2021-08-12 11:23] LABS: BUN/Creatinine Ratio 12.1; Bilirubin, Total 0.4 mg/dL (0.2-1.0)
[2021-08-12] MEDS ORDERED: HEPARIN SODIUM (PORCINE) 5000 UNITS/ML 1ML VIAL ONE (11:28)
[2021-08-12] MEDS ORDERED: ALBUMIN 25% 100 ML IV ONE (12:38)
[2021-08-12] MEDS ORDERED: ALBUMIN 25% 50 ML IV ONE (13:00)
[2021-08-12 15:24] LABS: INR 1.57 (0.9-1.15)
[2021-08-12 15:38] LABS: Partial Thromboplastin Time 92.6 sec (23.6-33.0)
[2021-08-12] MEDS ORDERED: DAPTOmycin 500 MG in SODIUM CHL 0.9% 50 ML IV SCH (20:00)
[2021-08-12] MEDS: HEPARIN DRIP/D5W 100UNITS/ML 250 ML IV SCH (20:01)
[2021-08-12 23:42] LABS: INR 1.53 (0.9-1.15); Partial Thromboplastin Time 33.6 sec (23.6-33.0)
[2021-08-13] MEDS: PIPERACILLIN-TAZOB 2.25GM 50 ML IV SCH ×4 (01:02→21:37)
[2021-08-13] MEDS: ACCU-CHEK COMFORT CURVE STRIP VI SCH ×5 (01:03→23:56)
[2021-08-13] MEDS: ATORVASTATIN 20 MG TAB PO SCH ×2 (01:03→21:37)
[2021-08-13] MEDS: GABAPENTIN 300 MG CAP PO SCH ×3 (01:03→21:38)
[2021-08-13] MEDS: PRAMIPEXOLE DIHYDROCHLORIDE MO 0.25 MG TAB PO SCH ×2 (01:03→21:38)
[2021-08-13] MEDS: HYDROcodone-ACET 5/325MG TAB PO PRN ×3 (01:43→20:28)
[2021-08-13] MEDS: InsuLIN REG 1unit/0.01ml Soln (100units/ml) SC SCH ×5 (01:45→23:56)
[2021-08-13] MEDS: HEPARIN DRIP/D5W 100UNITS/ML 250 ML IV SCH ×2 (03:44→14:40)
[2021-08-13 05:45] LABS: Basophils # (auto) 0 10 ^3/uL (0-0.2); Eosinophils # (auto) 0.2 10 ^3/uL (0-0.8); Hemoglobin 7.1 g/dL (12.2-16.2); Lymphocytes # (auto) 1.2 10 ^3/uL (0.4-5.4); Neutrophils # (auto) 11.7 10 ^3/uL (1.6-8.6); Nucleated Red Blood Cells % 0.1 %
[2021-08-13 05:47] LABS: Basophils % (auto) 0.1 % (0.0-2.0); Eosinophils % (auto) 1.4 % (0.0-7.0); Hematocrit 22.8 % (36.0-46.0); Lymphocytes % (auto) 8.5 % (10.0-50.0); Mean Corpuscular Hemoglobin 28.9 pg (28.0-32.0); Mean Corpuscular Hgb Conc. 31.4 g/dL (32.0-36.0); Mean Corpuscular Volume 92.1 fL (80.0-100.0); Monocytes # (auto) 0.9 10 ^3/uL (0-1.3); Monocytes % (auto) 6.3 % (0.0-12.0); Neutrophils % (auto) 83.7 % (37.0-80.0); Red Blood Cells 2.47 10^6/uL (4.0-5.20); Red Cell Distribution Width 18.6 % (11.8-14.3)
[2021-08-13 06:34] LABS: Partial Thromboplastin Time > 139.0 sec (23.6-33.0)
[2021-08-13 06:55] VITALS: BP 116/49
[2021-08-13] MEDS: ASCORBIC ACID 500 MG TAB PO SCH (08:53)
[2021-08-13] MEDS: ASPirin 81 mg TAB PO SCH (08:53)
[2021-08-13] MEDS: PANTOPRAZOLE 40 MG/10 ML VIAL INJ IV SCH (08:53)
[2021-08-13] MEDS: CARVEDILOL 3.125 MG TAB PO SCH ×2 (08:59→21:33)
[2021-08-13 12:14] LABS: INR 1.59 (0.9-1.15); Partial Thromboplastin Time 53.4 sec (23.6-33.0)
[2021-08-13 13:00] VITALS: BP 99/49
[2021-08-13 14:31] LABS: INR 1.6 (0.9-1.15); Partial Thromboplastin Time 52.9 sec (23.6-33.0)
[2021-08-13 17:00] VITALS: BP 95/53
[2021-08-13 20:14] LABS: INR 1.6 (0.9-1.15); Partial Thromboplastin Time 54.7 sec (23.6-33.0)
[2021-08-13] MEDS ORDERED: HEPARIN DRIP/D5W 100UNITS/ML 250 ML IV SCH (20:45)
[2021-08-13 22:00] VITALS: BP 108/53
[2021-08-14 02:50] LABS: Basophils # (auto) 0 10 ^3/uL (0-0.2); Eosinophils # (auto) 0.2 10 ^3/uL (0-0.8); Hematocrit 20.7 % (36.0-46.0)
[2021-08-14 02:52] LABS: Basophils % (auto) 0.1 % (0.0-2.0); Eosinophils % (auto) 1.8 % (0.0-7.0); Lymphocytes # (auto) 1.1 10 ^3/uL (0.4-5.4); Lymphocytes % (auto) 8.9 % (10.0-50.0); Mean Corpuscular Hemoglobin 28.1 pg (28.0-32.0); Mean Corpuscular Hgb Conc. 30.6 g/dL (32.0-36.0); Mean Corpuscular Volume 91.9 fL (80.0-100.0); Monocytes # (auto) 0.7 10 ^3/uL (0-1.3); Monocytes % (auto) 5.6 % (0.0-12.0); Neutrophils # (auto) 10.6 10 ^3/uL (1.6-8.6); Neutrophils % (auto) 83.6 % (37.0-80.0); Nucleated Red Blood Cells % 0.2 %; Red Blood Cells 2.25 10^6/uL (4.0-5.20); Red Cell Distribution Width 18.1 % (11.8-14.3); White Blood Cell 12.7 10^3/uL (4.4-10.8)
[2021-08-14 02:58] LABS: INR 1.65 (0.9-1.15); Partial Thromboplastin Time 56.1 sec (23.6-33.0)
[2021-08-14 03:03] LABS: Hemoglobin 6.3 g/dL (12.2-16.2)
[2021-08-14 05:00] VITALS: BP_SYST 90; BP_SYST 92; BP_DIAS 50; BP_DIAS 52
[2021-08-14] MEDS: PIPERACILLIN-TAZOB 2.25GM 50 ML IV SCH (05:39)
[2021-08-14] MEDS: ACCU-CHEK COMFORT CURVE STRIP VI SCH ×2 (05:46→14:42)
[2021-08-14] MEDS: InsuLIN REG 1unit/0.01ml Soln (100units/ml) SC SCH ×2 (05:46→12:00)
[2021-08-14 08:49] VITALS: BP 107/58
[2021-08-14] MEDS: GABAPENTIN 300 MG CAP PO SCH (09:49)
[2021-08-14] MEDS: ASCORBIC ACID 500 MG TAB PO SCH (09:49)
[2021-08-14] MEDS: CARVEDILOL 3.125 MG TAB PO SCH (09:49)
[2021-08-14] MEDS: PANTOPRAZOLE 40 MG/10 ML VIAL INJ IV SCH (09:49)
[2021-08-14] MEDS: ASPirin 81 mg TAB PO SCH (09:49)
[2021-08-14 09:50] VITALS: BP 107/58
[2021-08-14 12:40] VITALS: BP 79/48
[2021-08-14] MEDS ORDERED: SODIUM CHL 0.9% 1000 ML BAG XX ONE (13:45)
[2021-08-14] MEDS ORDERED: NOREPINEPHRINE 8 MG/250ML KIT 250 ML IV SCH (16:15)
[2021-08-14] MEDS ORDERED: EPOETIN ALFA-EPBX 10,000 UNIT/1ML VIAL SC ONE (21:00)
[2021-08-15] MEDS ORDERED: EPINEPHrine HCL 1 MG/10 ML SYRG IV ONE (02:39)
[2021-08-15] MEDS ORDERED: SODIUM BICARBONATE 8.4% INJ 50ML SYRINGE IV ONE (02:39)
[2021-08-15] MEDS ORDERED: CALCIUM CHLOR(10%) 100MG/ML 10ML SYRINGE IV ONE (02:39)
== END 2021-08-14 16:56 | DRG 870 ==
LOC: EDBD 15:57 → ER 15:58 → TELE 18:42 → TELE-WESTW 07-28 15:15 → DOU IN ICU 08-01 05:46 → TELE-CENTR 08-10 22:05 → ICU WEST 08-12 02:30 → TELE-CENTR 08-12 21:41
PROVIDERS: ADMIT Internal Medicine; ATTEND Internal Medicine
PROC: 05H933Z Insertion of Infusion Device into Right Brachial Vein, Percutaneous Approach (ICD-10-PCS; 2021-07-29)
PROC: B54MZZA Ultrasonography of Right Upper Extremity Veins, Guidance (ICD-10-PCS; 2021-07-29)
PROC: B24BZZ4 Ultrasonography of Heart with Aorta, Transesophageal (ICD-10-PCS; 2021-07-30)
PROC: 5A1D70Z Performance of Urinary Filtration, Intermittent, Less than 6 Hours Per Day (ICD-10-PCS; 2021-07-30)
PROC: 03JY3ZZ Inspection of Upper Artery, Percutaneous Approach (ICD-10-PCS; principal; 2021-08-01)
PROC: 5A1955Z Respiratory Ventilation, Greater than 96 Consecutive Hours (ICD-10-PCS; 2021-08-01)
PROC: 0BH17EZ Insertion of Endotracheal Airway into Trachea, Via Natural or Artificial Opening (ICD-10-PCS; 2021-08-01)
PROC: 02HV33Z Insertion of Infusion Device into Superior Vena Cava, Percutaneous Approach (ICD-10-PCS; 2021-08-01)
PROC: B548ZZA Ultrasonography of Superior Vena Cava, Guidance (ICD-10-PCS; 2021-08-01)
PROC: 5A1D70Z Performance of Urinary Filtration, Intermittent, Less than 6 Hours Per Day (ICD-10-PCS; 2021-08-01)
PROC: 03HY32Z Insertion of Monitoring Device into Upper Artery, Percutaneous Approach (ICD-10-PCS; 2021-08-01)
PROC: B54MZZA Ultrasonography of Right Upper Extremity Veins, Guidance (ICD-10-PCS; 2021-08-01)
PROC: 5A1D70Z Performance of Urinary Filtration, Intermittent, Less than 6 Hours Per Day (ICD-10-PCS; 2021-08-03)
PROC: 5A1D70Z Performance of Urinary Filtration, Intermittent, Less than 6 Hours Per Day (ICD-10-PCS; 2021-08-06)
PROC: 5A09357 Assistance with Respiratory Ventilation, Less than 24 Consecutive Hours, Continuous Positive Airway Pressure (ICD-10-PCS; 2021-08-09)
PROC: 5A1D70Z Performance of Urinary Filtration, Intermittent, Less than 6 Hours Per Day (ICD-10-PCS; 2021-08-12)
PROC: 30233N1 Transfusion of Nonautologous Red Blood Cells into Peripheral Vein, Percutaneous Approach (ICD-10-PCS; 2021-08-14)
PROC: 5A1D70Z Performance of Urinary Filtration, Intermittent, Less than 6 Hours Per Day (ICD-10-PCS; 2021-08-14)
DX: A41.9 Sepsis, unspecified organism (principal); I63.9 Cerebral infarction, unspecified; J96.21 Acute and chronic respiratory failure with hypoxia; G93.41 Metabolic encephalopathy; N18.6 End stage renal disease; E43 Unspecified severe protein-calorie malnutrition; R65.21 Severe sepsis with septic shock; I50.23 Acute on chronic systolic (congestive) heart failure; D68.59 Other primary thrombophilia; I13.2 Hypertensive heart and chronic kidney disease with heart failure and with stage 5 chronic kidney disease, or end stage renal disease; T82.41XA Breakdown (mechanical) of vascular dialysis catheter, initial encounter; M86.9 Osteomyelitis, unspecified; N39.0 Urinary tract infection, site not specified; D68.9 Coagulation defect, unspecified; E87.5 Hyperkalemia; J44.9 Chronic obstructive pulmonary disease, unspecified; E66.9 Obesity, unspecified; G25.81 Restless legs syndrome; Y71.2 Prosthetic and other implants, materials and accessory cardiovascular devices associated with adverse incidents; E11.22 Type 2 diabetes mellitus with diabetic chronic kidney disease; Y83.2 Surgical operation with anastomosis, bypass or graft as the cause of abnormal reaction of the patient, or of later complication, without mention of misadventure at the time of the procedure; R47.1 Dysarthria and anarthria; D63.8 Anemia in other chronic diseases classified elsewhere; E11.65 Type 2 diabetes mellitus with hyperglycemia; E87.6 Hypokalemia; E11.51 Type 2 diabetes mellitus with diabetic peripheral angiopathy without gangrene; Z20.822 Contact with and (suspected) exposure to COVID-19; E11.42 Type 2 diabetes mellitus with diabetic polyneuropathy; Y92.89 Other specified places as the place of occurrence of the external cause; Z68.36 Body mass index [BMI] 36.0-36.9, adult; Z99.2 Dependence on renal dialysis; Z80.6 Family history of leukemia; Z82.49 Family history of ischemic heart disease and other diseases of the circulatory system; Z80.41 Family history of malignant neoplasm of ovary; Z79.01 Long term (current) use of anticoagulants; Y90.0 Blood alcohol level of less than 20 mg/100 ml
CPT/HCPCS: 36415; 36600; 70450; 70551; 71045; 71275; 80048; 80053; 80061; 80307; 80320; 81001; 82805; 82962; 83605; 83735; 84132; 84484; 85007; 85025; 85027; 85379; 85610; 85730; 86850; 86900; 86901; 86920; 87040; 87070; 87081; 87086; 87088; 87186; 87205; 87340; 87426; 90935; 92610; 93005; 93312; 93886; 93970; 94002; 94003; 94640; 94660; 95819; 96360; 97110; 97163; 97530; C9113; G0378; J0330; J0696; J1100; J1642; J1815; J2250; J2543; J3480; P9047